=== PATIENT | female | born 1960 | race Caucasian/White ===

== ENCOUNTER → 2016-10-30 | Outpatient (CLI) | payer OTHER ==
[~2016-10-30] MED LIST: ABILIFY PO; ABILIFY15 MG PO; ABREVA2 GM TOP; ACETAMINOPHEN PO; ALBAFORT325 MG PO; APAP500; APAP500 PO; ASACOL HD800 MG PO; ASACOL400 MG PO; BACITRACIN 500U30 G1 TOP; BACITRACIN15 GM; BACITRACIN28.4 GM; BACTRIM DS TAB1 EACH PO; BISMATROL262 MG/15 PO; CAMPRAL 333 MG333 M1 PO; CAMPRAL PO; CARAFATE 11 GM/10 M1 PO; CARAFATE PO; CARAFATE1 GM/10 ML PO; CARBAMIDE15 ML OT; CARBIDOPA-LEVO1 EAC6 PO; CIPROFLOXACIN500 M1 PO; CLEOCIN HCL300 MG PO; CLOMIPRAMINE HC50 M1 PO; COMPAZINE PO; COMPAZINE10 M1; COMPAZINE10 M1 PO; COMPAZINE10 MG PO; CYCLOBENZAPRINE5 MG PO; DESYREL50 MG PO; DOXYCYCLINE 10100 M1 PO; DOXYCYCLINE 10100 MG PO; FAMOTIDINE20 MG PO; FERROUS SULFAT325 M1 PO; GENTAMICIN; HYDROCERIN CREA1 JAR; HYDROCODON-ACE1 EAC7 PO; IBUPROFEN 800800 MG PO; IRON325 PO; KEFLEX500 MG PO; LASIX 20 MG TAB20 MG PO; LORATIDINE 10 M10 M1 PO; MAALOX MAXIMUM355 ML PO; MINERIN CREME454 GM; MINERIN CREME454 GM TOP; MIRAPEX1 MG PO; MONISTAT 745 GM; MULTIPLE VITAM1 EAC3 PO; MYLANTA 12 OZ355 M1; MYLANTA 12 OZ355 M1 PO; MYLANTA125 MG PO; NORCO 5-325 TA1 EACH PO; NYAMYC TOP; NYSTATIN1 EA10; ORAZINC220 MG PO; PEPTO-BISM262 MG/15 PO; PEPTO-BISMOL262 M1; PRILOSEC40 MG PO; PROTONIX40 M2 PO; Q-TUSSIN100 MG/5 M PO; RANITIDINE HCL75 MG PO; SILVADENE20 GM TP; SINEMET CR 50/21 TAB PO; SSD CREAM 1% 5050 GM TOP; TRANSDERM-SCO1 PATC1 TD; TRANSDERM-SCOP1 EACH TD; UNICOMPLEX M TA1 TA1 PO; VITAMIN C100 M1 PO; VITAMIN D 5050000 I1 PO; VITAMINC500 PO; VITCB500GO PO; ZANTAC 150MG T150 MG PO; ZINC SULFATE 2220 M1 PO; ZOVIRAX 5% OINT15 G1 TOP; [UNRECOGNIZED DRUG - MIXTURE] TOP
== END ==
LOC: HYPER 06:53
DX: L97.122 Non-pressure chronic ulcer of left thigh with fat layer exposed (principal); L97.311 Non-pressure chronic ulcer of right ankle limited to breakdown of skin; E66.01 Morbid (severe) obesity due to excess calories; Z68.42 Body mass index [BMI] 45.0-49.9, adult; S21.102A Unspecified open wound of left front wall of thorax without penetration into thoracic cavity, initial encounter; Z86.19 Personal history of other infectious and parasitic diseases; Z90.710 Acquired absence of both cervix and uterus; X58.XXXA Exposure to other specified factors, initial encounter; Y93.89 Activity, other specified; Y92.89 Other specified places as the place of occurrence of the external cause; Y99.8 Other external cause status

== ENCOUNTER → 2016-11-20 | Outpatient (CLI) | payer OTHER | LOC: HYPER 07:17 | DX: L97.122 Non-pressure chronic ulcer of left thigh with fat layer exposed (principal); L97.311 Non-pressure chronic ulcer of right ankle limited to breakdown of skin; E66.01 Morbid (severe) obesity due to excess calories; Z68.42 Body mass index [BMI] 45.0-49.9, adult ==

== ENCOUNTER → 2016-12-13 | Outpatient (CLI) | payer OTHER | LOC: RAD 02:40 | DX: Z12.31 Encounter for screening mammogram for malignant neoplasm of breast (principal) ==

== ENCOUNTER → 2017-02-01 | Outpatient (CLI) | payer OTHER | LOC: ULTRA 13:20 | DX: N20.2 Calculus of kidney with calculus of ureter (principal) ==

== ENCOUNTER 2017-02-07 07:15 | Inpatient (IN) | payer OTHER ==
[~2017-02-07] VITALS: Ht 147.3 cm; Wt 95.3 kg
--- NOTE | ~2017-02-07 | HC ---
[facility] [place] [address] CONSULTATION Name: AUDRA HARRIS Room #: 424-P ADM IN M.R.#: [id number] Admission: 02/07/17 Attend Phys: Steven Rodriguez MD, FAAF Discharge: Date of : 64 Report #: [id number] THIS REPORT FOR: //name// CC: Steven Lopez MD DATE OF SERVICE: 02/08/2017 INFECTIOUS DISEASE CONSULTATION ATTENDING PHYSICIAN: Joe Faye M.D. REASON FOR CONSULTATION: Antibiotic management. HISTORY OF PRESENT ILLNESS: The patient is a 56-year-old white woman with multiple medical problems, [facility] and started on Zosyn. The patient is scheduled for debridement of the left thigh wound. The patient tells me she is here for a right leg lesion and obviously she is confused and unable to get much of any significant medical information. Consequently, all information is gathered from a review of old records. PAST MEDICAL HISTORY: Parkinson's disease. Seizure disorder. Status post ileal conduit, left nephrectomy and cystectomy. Diverting colostomy. History of colonic polyp. Hydrocephalus. Cognitive impairment. Spina bifida. Hepatitis C infection. Bronchial asthma. Hysterectomy. Gastroesophageal reflux disease. DRUG ALLERGIES: No drug allergies as mentioned apartment. MEDICATIONS: The patient is currently on aripiprazole, loratadine, famotidine, zinc sulfate, carbidopa/levodopa, Campral 2 tablets t.i.d., cyclobenzaprine 5 mg t.i.d., oxychlorosene topical, Carafate 1 gram b.i.d., Zosyn 3.37 grams IV every 8 hours, fentanyl 25-50 mcg IV q. 4 hours p.r.n., mesalamine 800 mg q.i.d., ondansetron p.r.n., bacitracin topical, scopolamine patch q. 72 hours, guaifenesin, ascorbic acid p.r.n., acetaminophen p.r.n., magnesium hydroxide p.r.n., oxycodone, vancomycin 1000 mg IV one time yesterday. REVIEW OF SYSTEMS: The patient unable to give any significant information. SOCIAL HISTORY: See H and P. FAMILY HISTORY: See H and P. PHYSICAL EXAMINATION: [address] [address] CONSULTATION Name: AUDRA HARRIS [facility] Room #: 424-P [facility] IN M.R.#: [id number] Admission: 02/07/17 Attend Phys: Steven Rodriguez MD, FAAF Discharge: Date of : 64 Report #: [id number] GENERAL: This is a chronically ill-appearing woman, mildly sedated in the preop area. VITAL SIGNS: Temperature 98.5, pulse 64, respirations 16, BP 100/39, height 4 feet 10 inches, weight 210 pounds. HEENT: Pupils are reactive. She has a strabismus, left eye. Mouth, missing teeth ____ teeth. NECK: Supple. LUNGS: Clear. HEART: S1, S2. BREASTS: Deferred. ABDOMEN: With multiple surgical scars, abdominal wall hernia and ileal conduit with turbid urine and left-sided colostomy. PELVIC: Deferred. RECTAL: Deferred. EXTREMITIES: There is a chronic ulceration of the left thigh ischial area, no active signs of infection. There is sign of stasis dermatitis on the right leg, NEUROLOGIC: Grossly within normal limits. LABORATORY DATA: Sodium 141, potassium 3.7, BUN 21, creatinine 1, alkaline phosphatase 123, albumin 2.9 g/dL, CRP 26.5 mg/L. WBC 7400, hemoglobin 12.5 g/dL, glucose 194, sedimentation rate 45 mm per hour. Prealbumin 15.5 mg/dL. Urinalysis with positive nitrite, pyuria, microscopic hematuria and bacteriuria as well as funguria. The urinalysis obviously abnormal since she has a chronic ileal conduit. Urine culture pending. Blood cultures were obtained and afebrile. The patient I suppose will remain negative. RADIOLOGY EVALUATION: A CT scan of the left thigh revealed soft tissue decubitus over the ischium, some cellulitic changes noted on CT scan. There is supple area of cortical erosion of the ischium, which may represent chronic or indwelling osteomyelitis, no abscess present. An ultrasound of the soft tissue is also obtained and this failed to reveal fluid collection. ASSESSMENT: 1. Chronic decubitus left ischial tuberosity area with possible underlying osteomyelitis. 2. Spina bifida. 3. Cognitive impairment. 4. Status post colostomy. 5. Status post left nephrectomy, cystectomy, and ileal conduit with abnormal urinalysis. 6. Malnutrition. SUGGESTIONS: While awaiting repeat culture results, we will continue with Zosyn. The patient is afebrile for the time being, so I doubt very much we are dealing with an abscess. If chronic osteomyelitis diagnosed, we will try to prescribe parenteral antibiotic for 4-6 weeks. [facility] [address] [place] [address] CONSULTATION Name: AUDRA HARRIS Room #: 424-P ADM IN M.R.#: [id number] Admission: 02/07/17 Attend Phys: Steven Rodriguez MD, FAAF Discharge: Date of : 64 Report #: [id number] Joe Faye and Dr. Ronak Lopez thank you for requesting my suggestions in the care of your patient. <ELECTRONICALLY SIGNED> By: Alexy Moreau MD 02/11/17 1354 1133 07 Alexy Moreau MD /nt
--- NOTE | ~2017-02-07 | HC ---
[facility] [place] [address] CONSULTATION Name: AUDRA HARRIS Room #: 424-P ADM IN M.R.#: [id number] Admission: 02/07/17 Attend Phys: [facility] Dis[facility]: Date of : 64 Report #: [id number] THIS REPORT FOR: //name// CC: Steven Caldwellhens DATE OF SERVICE: 02/08/2017 PERSONAL PHYSICIAN: Dr. Steven Rodriguez. CHIEF COMPLAINT: Left posterior thigh wound and right lateral ankle ulcer. HISTORY OF PRESENT ILLNESS: This is a pleasant white female who I have been following for several years for recurrent ulcerations in her left posterior thigh ischial region. The patient actually had several years ago, the ulceration got so bad that she required myocutaneous flap closure for stage IV decubitus ulcer. The patient has done fairly well since that time; however, in the past few months according to the caregiver the ulceration has gotten larger and in the past week exquisitely more painful with more foul-smelling drainage. This is what prompted her to make an appointment in the wound clinic. The patient herself denies fevers or chills. The patient, however, has very limited sensitivity in her lower extremities and it is unusual for her to feel pain. The patient herself actually is even a self-mutilator and will pick at her legs until they bleed, but states she has not been picking at this ulcer itself. The patient denies any other associated concerns or complaints at this time. The patient does have another ulceration on her right lateral lower extremity around the area of the ankle, which is chronic and currently being treated with Silvadene. We have been asked to assist in the care of the wound while she is hospitalized. PAST MEDICAL HISTORY: Significant for ileal conduit status post left nephrectomy and cystectomy, history of Parkinsonism, spina bifida, epilepsy, hydrocephalus, hepatitis C, status post ileal conduit, and recurrent ulcerations on her left posterior thigh. CURRENT MEDICATIONS: Multiple. I reviewed the patient's medication list. DRUG ALLERGIES: ADHESIVE TAPE. SOCIAL HISTORY: The patient lives in a care facility where she has been for several years. The patient does not smoke or drink alcohol. FAMILY HISTORY: Not pertinent to current medical condition. REVIEW OF SYSTEMS: CONSTITUTIONAL: The patient denies fevers or chills. [address] [address] CONSULTATION Name: AUDRA HARRIS [facility] Room #: 424-P [facility] IN M.R.#: [id number] Admission: 02/07/17 Attend Phys: Steven Rodriguez MD, FAAF Discharge: Date of : 64 Report #: [id number] NEUROLOGIC: The patient has overall generalized weakness, but no isolated weakness in arms or legs. EYES: No complaints. ENT: No complaints. CARDIAC: The patient denies chest pain, palpitations or peripheral edema. RESPIRATORY: The patient denies shortness breath, cough or wheezes. GASTROINTESTINAL: The patient complains of mild nausea, but no abdominal pain or diarrhea. The patient does have colostomy. GENITOURINARY: The patient denies urgency or frequency. The patient does have a catheter to her ileal conduit. MUSCULOSKELETAL: No complaints. SKIN: There is open ulcerations on her left ischial/posterior thigh region, which is infected as well as chronic ulceration on the right lateral ankle region. PHYSICAL EXAMINATION: VITAL SIGNS: Temperature 36.4, pulse 50, respirations 16, BP 93/43. GENERAL: This is alert and oriented times 3, pleasant white female who is in no acute distress. HEENT: Normocephalic, atraumatic. Mucous membranes are dry. Pupils are round. Sclerae white. NECK: Supple, nontender ____. BACK: Nontender. LUNGS: Clear. HEART: Regular, without murmur. ABDOMEN: Obese, soft, nontender. Ileal conduit and colostomy are in place. EXTREMITIES: The patient moves all extremities without difficulty. Evaluation of bilateral heels is intact. Evaluation of right lateral ankle reveals multiple superficial ulcerations, which seemed to be more consistent with self-inflicted scratching and not any sign of pressure. On the posterior left thigh, there is an ulceration with a mix of approximately 25% ____ 75% yellowish slough with greenish drainage with no significant odor. There is a depth of approximately 4 cm, question whether this goes down to the bone; however, I cannot truly appreciate penetration of the bone. Periulcer itself is moderately erythematous, tender to palpation. Rest of the posterior thigh is mildly erythematous as well, slightly warm to touch. Distal pulses otherwise intact. NEUROLOGIC: Cranial nerves 2-12 are grossly intact. Motor and sensory grossly intact. LABORATORY DATA: White count 7.4, hemoglobin 12.5, sed rate 45. BUN 21, creatinine 1.0. C-reactive protein is elevated at 26.5, albumin is low at 2.9, prealbumin is low at 15.5. IMAGING: CT scan of lower extremities showed chronic ulceration on the area of the left ischium. There ____ subtle area of clinical erosion over the ischium consistent with chronic or indolent osteomyelitis, but no sign of abscess. [address] [address] CONSULTATION Name: AUDRA HARRIS Room #: 424-P ADM IN M.R.#: [id number] Admission: 02/07/17 Attend Phys: Steven Rodriguez MD, FAAF Discharge: Date of : 64 Report #: [id number] IMPRESSION: 1. Chronic ulceration, left ischial tuberosity/posterior thigh -- infected with concern for underlying chronic osteomyelitis. 2. Chronic ulceration, right lateral ankle, most likely secondary to self-mutilation and scratching. 3. History of Parkinsonism. 4. History of cognitive disorder. 5. Status post colostomy. 6. Status post ileal conduit. 7. Protein-calorie malnutrition -- moderate with albumin of 2.9 and prealbumin of 15.5. PLAN: Surgery is being consulted and plan on possibly taking the patient to Surgery today for surgical debridement of left posterior thigh ischial ulceration. More likely, this will need to be left open and we can probably start negative pressure wound therapy to the site. If the bone does appear to be involved, hopefully I will be able to get some bony debridement and possibly culture of the bone itself. For the right lateral ankle ulceration, we will start the patient on Optifoam Ag, change this every [address] the patient on low air loss mattress and will be turned every 2 hours. We will make sure we maximize her oral supplementation of protein for healing. The patient understands the importance of this. I will also add provide supplementations for healing. Once the patient is able, we will attempt to give the patient maximize her physical and occupational therapy for continued strength. We will continue to follow the patient and continue all other current medications. By: 0825 1159 Ronak Lopez MD /nataliia
--- NOTE | ~2017-02-07 | HC ---
[facility] [address] [place] [address] CONSULTATION Name: AUDRA HARRIS Room #: 424-P ADM IN M.R.#: [id number] Admission: 02/07/17 Attend Phys: Steven Rodriguez [facility], [facility] Dis[facility]: Date of : 64 Report #: [id number] THIS REPORT FOR: //name// CC: Steven Lopez ADDENDUM INITIAL IMPRESSION: Decubitus ulcer, left ischial tuberosity stage IV. By: 0832 1227 Ronak Lopez MD /nt
--- NOTE | ~2017-02-07 | O ---
[facility] [place] [address] OPERATIVE REPORT Name: AUDRA HARRIS Room #: 424-P ADM IN M.R.#: [id number] Admission: 02/07/17 Attend Phys: Steven Rodriguez MD, [facility] Discharge: Date of : 64 Report #: [id number] THIS REPORT FOR: //name// CC: Steven Rodriguez [facility] DATE OF SERVICE: 02/08/2017 PREOPERATIVE DIAGNOSES: 1. Right leg cellulitis. 2. Left ischial decubitus ulcer, stage III, recurrent. POSTOPERATIVE DIAGNOSES: 1. Right leg cellulitis. 2. Left ischial decubitus ulcer, stage III, recurrent. PROCEDURE: 1. Debridement with Misonix of the right lower extremity cellulitis. 2. Debridement with Misonix of the left ischial wound, which is 8 cm in diameter. SURGEON: Nikunj Jerez MD [employer] SUPERVISOR: Shruthi Rose MS3. INDICATIONS: A 56-year-old lady who has had a previous skin muscle myocutaneous flap closure of her left ischial decubitus ulcer, now this has broken open and become an abscess cavity, which has spontaneously drained and requires debridement. The patient also has a right lower lateral extremity cellulitis with devoid of epithelium approximately 16 x 8 cm in greatest dimensions. OPERATIVE PROCEDURE: The patient had thorough discussion of procedure, benefits, and risks. She gave informed consent to proceed. She was brought to the operating room suite and had satisfactory induction of general endotracheal anesthesia. Sterile prep and draping of the lower extremity was completed with Betadine, the Misonix device was utilized over the entire surface of the lateral aspect of the wound. This was a 1-2 mm debridement of the superficial aspect of the film and exudate. This was debrided easily. Mepilex, Aquacel Ag was then placed over the wound and was wrapped with a Kerlix wrap. Attention was then turned, the patient was turned to a right lateral decubitus position. Copious irrigation of the previous myocutaneous flap, which had an open area of 6 cm in diameter. This was opened and we irrigated. The Misonix debridement device was also utilized on the superficial granulation tissue. No purulence was encountered. The wound was then packed with Dakin-soaked Kerlix. The patient [address] [address] OPERATIVE REPORT Name: AUDRA HARRIS [facility] Room #: 424-P [facility] IN M.R.#: [id number] Admission: 02/07/17 Attend Phys: Steven Rodriguez MD, FAAF Discharge: Date of : 64 Report #: [id number] tolerated the procedure well with estimated blood less than 5 mL. She returned to recovery room in stable and satisfactory condition. <ELECTRONICALLY SIGNED> By: Nikunj Jerez MD, FACS 02/12/17 1135 1029 1107 Nikunj Jerez MD, FACS /nt
--- NOTE | ~2017-02-07 | H ---
[facility] [place] [address] HISTORY AND PHYSICAL Name: AUDRA HARRIS Room #: 424-P ADM IN M.R.#: [id number] Admission: 02/07/17 Attend Phys: Joe Faye MD Discharge: Date of : 64 Report #: [id number] THIS REPORT FOR: //name// CC: Steven Lopez DATE OF SERVICE: 02/07/2017 CHIEF COMPLAINT: Left posterior thigh wound. HISTORY OF PRESENT ILLNESS: This patient reports having had a left posterior thigh wound for years. The patient has been seen, and apparently it has been getting worse and Dr. Lopez from wound care felt that this was getting worse and required inpatient hospitalization. She has had no fevers or chills, headache, visual changes, hearing changes, sore throat or epistaxis. No chest pain or chest pressure, cough, wheeze, shortness of breath, nausea, vomiting or diarrhea. She does have a colostomy. No dysuria, joint swelling, skin rash, focal weakness or numbness. PAST MEDICAL HISTORY: 1. Ileal conduit, status post left nephrectomy and cystectomy. 2. Parkinsonism. 3. History of gastrointestinal bleed. 4. History of colon polyps. 5. Epilepsy. 6. Spina bifida. 7. History of hydrocephalus. 8. Some cognitive disorder. 9. History of hepatitis C. 10. History of self-mutilation behavior. 11. Hyperlipidemia. 12. Rectal prolapse, status post surgery. 13. Eczema. 14. Asthma. 15. GERD. 16. Hysterectomy. 17. Hernia surgeries. MEDICATIONS: 1. Yellow Jacket 5 one p.o. q. 4 hours p.r.n. 2. Cyclobenzaprine 5 mg p.o. t.i.d. p.r.n. 3. Ibuprofen 800 mg p.o. t.i.d. p.r.n. 4. Sinemet 50/200 one p.o. t.i.d. 5. Pepcid or Zantac daily. 6. Campral 333 mg 2 p.o. t.i.d. [facility] [address] [place] [address] HISTORY AND PHYSICAL Name: AUDRA HARRIS ODILIA Room #: 424-P [facility] IN ..#: [id number] Admission: 02/07/17 Attend Phys: Joe Faye MD Discharge: Date of : 64 Report #: [id number] 7. Abilify 15 mg a day. 8. Clomipramine 50 mg tablets 3 p.o. at bedtime. 9. Iron sulfate 325 mg a day. 10. Vitamin C 500 mg p.o. b.i.d. 11. Asacol 800 mg p.o. 4 times a day. 12. Zinc sulfate 220 mg a day. 13. Scopolamine patch q. 72 hours. 14. Carafate 1 gram b.i.d. 15. Multivitamin 1 a day. ALLERGIES: TO TAPE. SOCIAL HISTORY: The patient lives at [facility]. Nonsmoker. No significant alcohol use. FAMILY HISTORY: No family history of hydrocephalus or epilepsy. REVIEW OF SYSTEMS: As above. PHYSICAL EXAMINATION: GENERAL: Pleasant woman in no immediate distress. HEENT: Conjunctivae pink. Nares clear. Pharynx clear. LUNGS: Clear. NECK: Supple, no lymphadenopathy. HEART: Regular rate and rhythm, S1 and S2. ABDOMEN: Soft, nontender. EXTREMITIES: 1-2+ edema. There is a deep ulcer to left posterior thigh with muscle tissue evident. IMPRESSION: 1. Deep ulcer, left posterior thigh. This is a pressure ulcer. She is basically chair bound. She has a history of spina bifida. 2. History of mood disorder. 3. History of parkinsonism, unclear if this is primary Parkinson's or Parkinson's secondary to medications. 4. History of seizures, asymptomatic. PLAN: Awaiting vital signs, labs and workup. Proceed with IV antibiotics. Consult surgery as recommended by Dr. Lopez. <ELECTRONICALLY SIGNED> By: Joe Faye MD 02/08/17 0656 1713 1744 Joe Faye MD /nt
[2017-02-07 19:28] LABS: HEMATOCRIT 37.9 % (37.0-47.0); HEMOGLOBIN 12.5 gm/dL (12.0-15.0); MCH 27.7 pg (26.0-34.0); MCV 83.8 fL (80.0-100.0); RBC 4.52 mil/uL (4.20-5.00); RDW 15.5 % (10.5-14.5); WBC 7.4 thou/uL (4.0-11.0)
[2017-02-07 19:46] LABS: ALBUMIN 2.9 g/dL (3.4-5.0); CALCIUM 8.8 mg/dL (8.5-10.1); POTASSIUM 3.7 mmol/L (3.5-5.1); TOTAL BILIRUBIN 0.2 mg/dL (<0.1-1.0); TOTAL PROTEIN 7.5 g/dL (6.4-8.2)
[2017-02-07 19:52] VITALS: BP 111/51
[2017-02-08] VITALS (7 sets, daily range): BP systolic 93–107; BP diastolic 39–60
[2017-02-08 08:15] LABS: URINE BILIRUBIN NEGATIVE (Negative); URINE BLOOD TRACE (Negative); URINE COLOR YELLOW; URINE GLUCOSE-RANDOM* NEGATIVE (Negative); URINE KETONES NEGATIVE (Negative); URINE LEUKOCYTES-REFLEX 2+ (Negative); URINE PROTEIN (DIPSTICK) 1+ (Negative); URINE SPECIFIC GRAVITY 1.015 (1.003-1.035); URINE UROBILINOGEN 0.2 E.U./dl (0.2-1.0)
[2017-02-08 08:22] LABS: CASTS None Seen /LPF (None Seen); SQUAMOUS 0-3 Few /LPF (0-3)
[2017-02-08 08:25] LABS: URINE WBC-REFLEX >25 Many /HPF (0-5)
[2017-02-08 08:26] LABS: CRYSTALS None Seen /LPF (None Seen); YEAST-REFLEX Present (None Seen)
[2017-02-09 03:22] LABS: HEMATOCRIT 35.2 % (37.0-47.0); HEMOGLOBIN 11.4 gm/dL (12.0-15.0); MCH 27.2 pg (26.0-34.0); MCHC 32.4 g/dL (28.0-37.0); MCV 83.9 fL (80.0-100.0); RBC 4.19 mil/uL (4.20-5.00); RDW 15.9 % (10.5-14.5); WBC 6.6 thou/uL (4.0-11.0)
[2017-02-09 03:38] LABS: CALCIUM 8.3 mg/dL (8.5-10.1); POTASSIUM 3.7 mmol/L (3.5-5.1)
[2017-02-09 04:00] VITALS: BP 112/60
[2017-02-09 08:00] VITALS: BP 107/44
[2017-02-09 17:57] VITALS: BP 133/62
[2017-02-09 20:00] VITALS: BP 111/54
[2017-02-10 04:25] VITALS: BP 121/63
[2017-02-10 08:59] VITALS: BP 117/50
[2017-02-10 16:50] VITALS: BP 116/50
[2017-02-10 20:00] VITALS: BP 133/57
[2017-02-11 05:30] VITALS: BP 132/70
[2017-02-11 09:39] VITALS: BP 132/65
[2017-02-11 17:05] VITALS: BP 154/81
[2017-02-11 20:10] VITALS: BP 152/78
[2017-02-12 03:17] VITALS: BP 137/81
[2017-02-12 08:00] VITALS: BP 129/80
[2017-02-12 16:00] VITALS: BP 145/89
[2017-02-12 21:30] VITALS: BP 139/87
[2017-02-13 08:08] VITALS: BP 153/90
[2017-02-13 16:18] VITALS: BP 145/92
[2017-02-13 21:19] VITALS: BP 134/72
[2017-02-14 04:01] VITALS: BP 127/73
[2017-02-14 07:41] VITALS: BP 126/81
[2017-02-14] MEDS ORDERED: ZOSYN 3.3753.375 GM IV (14:20)
[2017-02-14 16:01] VITALS: BP 135/80
[2017-02-14] MEDS ORDERED: ZOFRAN 4 MG ORAL4 MG DISSOLVE (16:39)
[2017-02-14 20:00] VITALS: BP 135/68
[2017-02-15 04:39] VITALS: BP 129/87
[2017-02-15 06:22] LABS: HEMATOCRIT 35.2 % (37.0-47.0); HEMOGLOBIN 11.8 gm/dL (12.0-15.0); MCH 27.9 pg (26.0-34.0); MCHC 33.5 g/dL (28.0-37.0); MCV 83.3 fL (80.0-100.0); RBC 4.23 mil/uL (4.20-5.00); RDW 15.2 % (10.5-14.5); WBC 4.5 thou/uL (4.0-11.0)
[2017-02-15 06:41] LABS: CALCIUM 8.3 mg/dL (8.5-10.1); CREATININE 1.1 mg/dL (0.6-1.0); POTASSIUM 3.6 mmol/L (3.5-5.1)
[2017-02-15 07:50] VITALS: BP 142/83
[2017-02-15 15:37] VITALS: BP 138/68
== END 2017-02-15 19:23 | DRG 463 ==
LOC: HYPER 07:15 → 4E 15:45 → HYPER 15:45 → 4E 16:53
PROVIDERS: Hospitalist
PROC: 0HBKXZZ Excision of Right Lower Leg Skin, External Approach (ICD-10-PCS; principal; 2017-02-08)
PROC: 0JBC0ZZ Excision of Pelvic Region Subcutaneous Tissue and Fascia, Open Approach (ICD-10-PCS; principal; 2017-02-08)
PROC: 05H933Z Insertion of Infusion Device into Right Brachial Vein, Percutaneous Approach (ICD-10-PCS; 2017-02-14)
DX: M86.9 Osteomyelitis, unspecified (principal); L89.224 Pressure ulcer of left hip, stage 4; L97.919 Non-pressure chronic ulcer of unspecified part of right lower leg with unspecified severity; L03.115 Cellulitis of right lower limb; N12 Tubulo-interstitial nephritis, not specified as acute or chronic; L03.116 Cellulitis of left lower limb; Z68.41 Body mass index [BMI] 40.0-44.9, adult; E44.0 Moderate protein-calorie malnutrition; L89.519 Pressure ulcer of right ankle, unspecified stage; G20 Parkinson's disease; E66.9 Obesity, unspecified; G40.909 Epilepsy, unspecified, not intractable, without status epilepticus; K21.9 Gastro-esophageal reflux disease without esophagitis; J45.909 Unspecified asthma, uncomplicated; G31.84 Mild cognitive impairment of uncertain or unknown etiology; E78.5 Hyperlipidemia, unspecified; Z91.048 Other nonmedicinal substance allergy status; Z93.3 Colostomy status; Q05.9 Spina bifida, unspecified; Z90.5 Acquired absence of kidney; Z86.010 Personal history of colon polyps; Z90.710 Acquired absence of both cervix and uterus
CPT/HCPCS: 10783; 27000; 50010; 50101; 50386; 50403; 53353; 53354; 62110; 62900; 70005

== ENCOUNTER → 2017-05-20 | Outpatient (CLI) | payer OTHER ==
[~2017-05-20] MED LIST changes: +ALL DAY ALLERGY10 M2 PO; +AMOXICILLIN 50500 MG PO; -APAP500 PO; +BENADRYL25 MG; +CARAFATE 1 GM TA1 G1 PO; +DAKIN'S473 M2 IRRIG; +DELZICOL400 M1 PO; +FERREX 150150 MG PO; +IMIPRAMINE HCL25 MG PO; -IRON325 PO; +LEVAQUIN 500 M500 M2 PO; +ROBITUSSIN100 MG/53 PO; +SILTUSSIN100 MG/5 M PO; +STALEVO 200 TA1 EACH PO; +THEREMS-M1 EACH PO; +TYLENOL EXTRA500 MG PO; -UNICOMPLEX M TA1 TA1 PO; -VITAMIN D 5050000 I1 PO; +VITAMIN D250000 UNIT PO; +ZOFRAN 4 MG ORAL4 MG DISSOLVE; +ZOSYN 3.3753.375 GM IV; +[UNRECOGNIZED DRUG - OTHER] TOP
--- NOTE | ~2017-05-20 | HC ---
[facility] [place] [address] CONSULTATION Name: AUDRA HARRIS Room #: PRE [facility] Paula.#: [id number] Admission: Attend Phys: Maurice Burnette MD Discharge: Date of : 64 Report #: [id number] THIS REPORT FOR: //name// CC: Steven Burnette DATE OF SERVICE: 04/16/2017 TYPE OF REPORT: Wound care consultation. PERSONAL PHYSICIAN: Steven Rodriguez M.D. CHIEF COMPLAINT: Left ischial ulcer. HISTORY OF PRESENT ILLNESS: This is a 56-year-old white female who I have followed for the past several months for a nonhealing ulcer in the left ischial region. The patient had this debrided several months ago and was treated with a course of 6 weeks of IV antibiotics. The patient did not have flap closure at that time. The patient recently went back at her care facility and they noted a foul odor, which has gotten progressively worse, which prompted her to be admitted to the hospital. We have been asked to follow her for the ulceration itself. The patient denies fevers or chills. PAST MEDICAL HISTORY: Significant for epilepsy, mild mental retardation, spina bifida, hydrocephalus, hepatitis C, self mutilation, previous colostomy with ileal conduit, left nephrectomy and cystectomy. CURRENT MEDICATIONS: Multiple, I reviewed the patient's medication list. DRUG ALLERGIES: ADHESIVE TAPE. SOCIAL HISTORY: The patient lives in a care facility. Does not smoke or drink alcohol. REVIEW OF SYSTEMS: CONSTITUTIONAL: The patient denies fevers or chills. NEUROLOGICAL: The patient denies numbness, tingling, weakness in arms or legs. EYES: No complaints. ENT: No complaints. CARDIAC: The patient denies chest pain, palpitations or peripheral edema. RESPIRATORY: The patient denies shortness of breath, cough or wheezes. GASTROINTESTINAL: The patient denies nausea, vomiting or abdominal pain. GENITOURINARY: The patient denies urgency or frequency. MUSCULOSKELETAL: No complaints. SKIN: Has open wound on her left ischial region. [facility] [address] [place] [address] CONSULTATION Name: STEVENAUDRA ODILIA Room #: PRE [facility] M.R.#: [id number] Admission: Attend Phys: Maurice Burnette MD Discharge: Date of : 64 Report #: [id number] LABORATORY DATA: White count 6.4 and hemoglobin 11.4. BUN 13 and creatinine 0.9. Albumin low at 2.5 and prealbumin was 15.5. RADIOLOGICAL DATA: MRI was performed, which showed the large decubitus ulcer, but no periosteum reaction, bone destruction or marrow edema to suggest acute osteomyelitis. PHYSICAL EXAMINATION: VITAL SIGNS: Temperature 36.8, pulse 56, respirations 18 and BP 138/67. GENERAL: This is an alert and oriented x 2, person and place but not time, pleasant white female who is in no acute distress. HEENT: Normocephalic and atraumatic. Mucous membranes are somewhat dry. Pupils are round. Sclerae white. NECK: Shows no JVD or masses. BACK: Nontender. LUNGS: Clear. HEART: Regular, without murmur. ABDOMEN: Soft. Colostomy bag is in place and full ileal conduit is in place and attached to a dependent drainage. Rest of the abdomen is nontender. EXTREMITIES: The patient moves all extremities without difficulty. Bilateral lower extremities have mild stasis dermatitis with distal pulses intact. Evaluation of the left ischial region reveals early stage 4 decubitus ulcer with palpable bone. The wound itself is foul-smelling with a mix of approximately 80% slough and 20% dark granulation tissue. Periwound itself is somewhat . Bilateral heels are intact. NEUROLOGICAL: Cranial nerves 2 through 12 are grossly intact. Motor and sensory grossly intact. IMPRESSION: 1. Stage 4 left ischial tuberosity ulceration with no MRI evidence for osteomyelitis. 2. Protein-calorie malnutrition - severe with albumin 2.5 and prealbumin of 15.5. 3. Stasis dermatitis - chronic. 4. History of cerebral palsy. 5. Generalized debility. PLAN: At this time, we will request surgical evaluation for further debridement of this ulceration and possible wound VAC placement at that time. In the past, we have tried wound VACs before and it has been very difficult to see on this patient due to the location. I feel patient most likely is a candidate for long-term acute care. At the time of discharge, IV antibiotics has already been started. We will make sure we maximize the patient to oral supplementation for protein for healing as well as utilize physical and occupational therapy for [address] [address] CONSULTATION Name: AUDRA HARRIS ODILIA Room #: PRE [facility] Masters#: [id number] Admission: Attend Phys: Maurice Burnette MD Discharge: Date of : 64 Report #: [id number] strengthening. We will continue to follow the patient. I appreciate the ability to consult. <ELECTRONICALLY SIGNED> By: Ronak Lopez MD 05/14/17 1123 1736 0239 Ronak Lopez MD /nt
== END ==
LOC: HYPER 04-15 09:23
DX: T81.31XA Disruption of external operation (surgical) wound, not elsewhere classified, initial encounter (principal); Z90.710 Acquired absence of both cervix and uterus; Z90.5 Acquired absence of kidney; Y92.89 Other specified places as the place of occurrence of the external cause; Y83.8 Other surgical procedures as the cause of abnormal reaction of the patient, or of later complication, without mention of misadventure at the time of the procedure

== ENCOUNTER 2017-05-26 20:24 | Inpatient (IN) | payer OTHER ==
[~2017-05-26] VITALS: Ht 142.2 cm; Wt 100.7 kg
--- NOTE | ~2017-05-26 | O ---
[facility] [place] [address] OPERATIVE REPORT Name: AUDRA HARRIS ODILIA Room #: 421-P [facility] IN M.R.#: [id number] Admission: 05/27/17 Attend Phys: Steven Rodriguez MD, FAAF Discharge: 06/05/17 Date of : 64 Report #: [id number] THIS REPORT FOR: //name// CC: Steven Rodriguez DATE OF SERVICE: 06/04/2017 PREOPERATIVE DIAGNOSES: 1. Chronic recurrent left ischial decubitus wound. 2. Severe protein calorie malnutrition. 3. Spina bifida with chronic debility. 4. Diabetes mellitus. 5. Prior diverting colostomy. 6. Seizure disorder with hydrocephalus. 7. Hepatitis C. POSTOPERATIVE DIAGNOSES: 1. Chronic recurrent left ischial decubitus wound. 2. Severe protein calorie malnutrition. 3. Spina bifida with chronic debility. 4. Diabetes mellitus. 5. Prior diverting colostomy. 6. Seizure disorder with hydrocephalus. 7. Hepatitis C. PROCEDURE: Excisional debridement of skin, subcutaneous tissue, muscle and bone of a chronic recurrent stage 4 left ischial decubitus wound, ultimately measuring 8 x 8 cm in dimension (64 square cm). Preoperative wound measurements were 7.5 x 7.5 cm in dimension with slight periwound necrosis and osteomyelitis. SURGEON: Oxana Trevino M.D. GRADING MACHINE OPERATOR: Ai Do MS3. ANESTHESIA: General endotracheal anesthesia. ESTIMATED BLOOD LOSS: Minimal (less than 5 mL). COMPLICATIONS: None appreciated. SPECIMENS: All excised tissue to pathology and excised bone to microbiology for aerobic and anaerobic culture and sensitivity. INDICATIONS: The patient is a 57-year-old chronically debilitated and bedbound female with severe protein-calorie malnutrition, diabetes mellitus, who has had a longstanding history of left ischial decubitus wound that has undergone [facility] [address] [place] [address] OPERATIVE REPORT Name: AUDRA HARRIS ODILIA Room #: 421-P [facility] IN ..#: [id number] Admission: 05/27/17 Attend Phys: Steven Rodriguez MD, FAAF Discharge: 06/05/17 Date of : 64 Report #: [id number] numerous debridements. The patient was recently found to have osteomyelitis on MRI, and as she has a recurrent necrosis to her wound, indication was for debridement today. DESCRIPTION OF PROCEDURE: After explaining the risks, benefits and alternatives of the procedure with the patient and her family and obtaining consent, the patient was brought to the operating room supine on her hospital bed. After conducting a thorough timeout procedure verifying correct patient and procedure, the patient was given general endotracheal anesthesia. Once adequate anesthesia was obtained, she was positioned on the operating room table in the prone position with all pressure points appropriately padded. The patient's wound was then prepped and draped in standard surgical sterile fashion. Electrocautery was now used to circumferentially debride all skin, subcutaneous tissue and muscle that was necrotic from the periphery of the wound. This was carried down to the depths of the wound where soft spongy bone was identified, and this was debrided back with rongeurs. The bone was sent to microbiology for culture and sensitivity. I then used the Misonix ultrasonic debridement tool to remove all remaining necrotic tissue as well as the biofilm overlying the wound in question. Hemostasis was assured with electrocautery. I then sprayed thrombin on the wound and packed it tightly with sterile saline soaked Kerlix gauze, dressed it with 4 x 4s and ABD pads and Medipore tape. At the end of the procedure, all instrument, needle and sponge counts were correct. The patient tolerated the procedure without incident, was awakened in the operating room and transitioned to the recovery room in stable condition with no apparent complications. <ELECTRONICALLY SIGNED> By: Oxana Trevino MD, FACS 06/06/17 [phone] [id number] Oxana Trevino MD, FACS /nt
--- NOTE | ~2017-05-26 | HC ---
[facility] [place] [address] CONSULTATION Name: AUDRA HARRIS ODILIA Room #: 421-P ADM IN M.R.#: [id number] Admission: 05/27/17 Attend Phys: [facility], [facility] Dis[facility]: Date of : 64 Report #: [id number] THIS REPORT FOR: //name// CC: Steven Rodriguez DATE OF SERVICE: 05/27/2017 REFERRING PROVIDER: Maurice Burnette M.D. REASON FOR CONSULTATION: Left ischial decubitus wound. HISTORY OF PRESENT ILLNESS: The patient is a 57-year-old female who has undergone a prior myocutaneous flap closure of a chronic recurrent left ischial decubitus wound. The patient has now undergone multiple bouts of repeat debridement the most recent of which I performed on 04/18/2017. At the time of her prior debridement, she also had right leg cellulitis that underwent debridement and she had been undergoing aggressive local wound care. The patient's wound had started to heal up. However, she continues with a persistent area of drainage and periwound necrosis overlying her left ischium with concern for osteomyelitis. As this has continued to fester, she either needs repeat debridement or possible flap closure of her wound and for that reason, I have been asked to reevaluate once again. PAST MEDICAL HISTORY: Seizure disorder, spina bifida, hydrocephalus, hepatitis C, hyperlipidemia, GERD, chronic anemia, prior nephrectomy and cystectomy with urostomy placement, prior hysterectomy, multiple incisional ventral hernia surgeries, diabetes mellitus and indwelling colostomy. CURRENT MEDICATIONS: Carbidopa/levodopa, bacitracin ointment, Maalox, famotidine, miconazole, vitamin C, Asacol, Lasix, Abreva, Silvadene, mineral oil, vitamin D, iron, Zyrtec, imipramine, Carafate, Tylenol, Abilify, clomipramine, Claritin, nystatin, scopolamine patch, zinc, multivitamin, Zosyn and vancomycin. ALLERGIES: TO ADHESIVE TAPE. SOCIAL HISTORY: Does not utilize tobacco, alcohol or illicit drugs. FAMILY HISTORY: Reviewed and noncontributory. REVIEW OF SYSTEMS: GENERAL: The patient denies nocturnal fevers or chills. HEENT: No change in vision, change in hearing. NECK: No swelling or difficulty swallowing. HEART: No chest pain, palpitations. LUNGS: No cough or shortness of breath. [address] [address] CONSULTATION Name: AUDRA HARRIS ODILIA Room #: 421-P [facility] IN M.R.#: [id number] Admission: 05/27/17 Attend Phys: Steven Rodriguez MD, FAAF Discharge: Date of : 64 Report #: [id number] ABDOMEN: No vomiting and no nausea. GENITOURINARY: No dysuria or hematuria. ENDOCRINE: No polyuria, polydipsia. HEMATOLOGIC: No history of bleeding or easy bruising. EXTREMITIES: No history of new weakness or limited range of motion. NEUROLOGIC: No history of syncope or near syncopal episodes. SKIN AND INTEGUMENT: History of a longstanding left ischial decubitus wound. PSYCHIATRIC: No history of anxiety or depression. PHYSICAL EXAMINATION: VITAL SIGNS: Temperature 98.2, pulse 98, respirations 20, blood pressure 134/72, stands 4 feet 8 inches tall and weighs 222 pounds. GENERAL: She is awake, in no acute distress. HEENT: Normocephalic, atraumatic. Pupils equal, round, reactive to light. NECK: Supple, without lymphadenopathy. Trachea midline. HEART: Regular rate and rhythm. LUNGS: Clear to auscultation bilaterally. ABDOMEN: Soft, nontender, nondistended. GENITOURINARY: Normal external female genitalia. EXTREMITIES: 2+ pitting edema bilateral lower extremities. NEUROLOGIC: Cranial nerves 2-12 are grossly intact. PSYCHIATRIC: Normal mood and affect. SKIN AND INTEGUMENT: Left ischial decubitus wound shows ongoing nonhealing wounds with fibrinopurulent drainage. LABORATORY AND X-RAY DATA: CBC shows white blood cell count of 9700, hemoglobin 11.1, platelets 275,000. She does have a left shift with 75% neutrophils. Creatinine is 0.8. Liver function enzymes are normal. Lactic acid normal at 0.8. C-reactive protein is elevated at 111. Sed rate is elevated at 88. ASSESSMENT AND PLAN: A 57-year-old obese female with multiple comorbid medical conditions with general debilitation and immobility who has had chronic indolent left ischial decubitus wound for which she has failed the prior flap closure. The patient has undergone repeat debridement approximately 5 weeks ago and has ongoing issues with her wound. Dr. Burnette with the wound care service has also been asked to evaluate the wound and at this juncture, she may be a candidate for flap closure even in light of her severe protein-calorie malnutrition with a prealbumin of 11. If Dr. Burnette and I discuss and she needs repeat debridement, we will proceed to the operating room at the first available opportunity. If, however, she appears to be a candidate for flap closure per the direction of Plastic Surgery, I would likely allow them to debride and flap in the same setting, provided they are amenable to that. Nonetheless, I will follow closely and leave any further recommendations in the patient's chart as appropriate. [facility] [address] [place] [address] CONSULTATION Name: AUDRA HARRIS Room #: 421-P ADM IN M.R.#: [id number] Admission: 05/27/17 Attend Phys: Steven Rodriguez MD, FAAF Discharge: Date of : 64 Report #: [id number] I sincerely appreciate this consult. <ELECTRONICALLY SIGNED> By: Oxana Trevino MD, FACS 05/28/17 1512 [id number] Oxana Trevino MD, FACS /nt
--- NOTE | ~2017-05-26 | HC ---
[facility] [place] [address] CONSULTATION Name: AUDRA HARRIS Room #: 421-P ADM IN M.R.#: [id number] Admission: 05/27/17 Attend Phys: Steven [facility], [facility] Discharge: Date of : 64 Report #: [id number] THIS REPORT FOR: //name// CC: Steven Rodriguez DATE OF SERVICE: 05/27/2017 INFECTIOUS DISEASE CONSULTATION ATTENDING PHYSICIAN: Steven Rodriguez M.D. REASON FOR CONSULTATION: Left ischial decubitus stage 4 and cellulitis, right leg. HISTORY OF PRESENT ILLNESS: The patient is a 57-year-old white woman, resident of a [facility], where she had been living for a number of years. The patient previously hospitalized at [facility] with stage 4 left ischial decubitus. She was discharged on oral antibiotics. The patient has some mental disabilities and unable to give any coherent medical history and most of the information is gathered from the review of records. Apparently, the patient reporting increasing pain in the ischial decubitus and some right leg pain as well as some chilling sensation. Other than that, she voices no major complaints. PAST MEDICAL HISTORY: Status post colostomy, left-sided and ileal conduit, right side. Seizure disorder. Spina bifida and hydrocephalus. Previous hepatitis C infection. Bronchial asthma. Status post hysterectomy due to uterine tumor. Surgical correction of abdominal wall hernia. Diabetes mellitus and malnutrition. DRUG ALLERGIES: ADHESIVE TAPE. MEDICATIONS: She is currently on treatment with Zosyn and vancomycin. Usually, she is on treatment at the long-term facility on carbidopa, famotidine, Levaquin 500 mg daily and amoxicillin 500 mg p.o. t.i.d. per my indication on previous discharge; I am uncertain as to whether she remains on this or not. She is also on Lasix, Carafate, ascorbic acid, nystatin, cetirizine and vitamins. She did receive tedizolid 200 mg p.o. daily. FAMILY HISTORY: See old records. SOCIAL HISTORY: See old records. REVIEW OF SYSTEMS: Noncontributory. PHYSICAL EXAMINATION: [facility] [address] [place] [address] CONSULTATION Name: AUDRA HARRIS ODILIA Room #: 421-P [facility] IN .R.#: [id number] Admission: 05/27/17 Attend Phys: Steven Rodriguez MD, FAAF Discharge: Date of : 64 Report #: [id number] GENERAL: Chronically ill-appearing woman. VITAL SIGNS: Temperature 98.4, pulse 113, respirations 22 and BP 181/86. Height 5 feet 5 inches, weight 200 pounds. There is another entry few hours later that showed some discrepancy with these numbers. HEENT: Within range. NECK: Supple. No thyromegaly. LUNGS: Clear. HEART: S1, S2. No gallops. ABDOMEN: Soft with left-sided colostomy and right-sided ileal conduit and collecting devices. No masses or megaly. BACK EXAMINATION: Reveals a stage 4 left ischial decubitus that trails all the way down to the ischium, obviously exposed with rough edges. EXTREMITIES: There is some redness and superficial skin abrasions, right leg, compatible with mild cellulitis. NEUROLOGIC: Grossly within normal limits. LABORATORY DATA: Sodium 141, potassium 3.2, BUN 28, creatinine 0.8 and glucose 110. Albumin 2.3 g/dL. WBC 9700, hemoglobin 11.1 g/dL and platelets 275,000. Urinalysis pending. Blood and wound cultures were obtained and those are pending at the time of this dictation. ASSESSMENT: 1. Stage 4 left ischial decubitus with exposed bone - osteomyelitis. 2. Mild cellulitis, right leg. 3. Spina bifida. 4. Status post colostomy and ileal conduit. 5. Malnutrition. 6. Diabetes. SUGGESTIONS: Recommend continue local wound care. Continue Zosyn and vancomycin. Await culture results. Monitor ESR, CRP. The patient will require flap closure of ischial decubitus since this had failed to improve for many months now. Dr. Steven Rodriguez, thank you for requesting my suggestions in the care of your patient. <ELECTRONICALLY SIGNED> By: Alexy Moreau MD 05/28/17 1032 [id number] [id number] Alexy Moreau MD /nt
--- NOTE | ~2017-05-26 | HC ---
[facility] [address] CONSULTATION Name: AUDRA HARRIS ODILIA Room #: 421-P ADM IN M.R.#: [id number] Admission: 05/27/17 Attend Phys: Steven Rodriguez MD, FAAF Discharge: Date of : 64 Report #: [id number] THIS REPORT FOR: //name// CC: Steven Rodriguez DATE OF SERVICE: 05/27/2017 CHIEF COMPLAINT: Stage 4 left ischial pressure ulcer. HISTORY OF PRESENT ILLNESS: This is a 57-year-old female patient with whom I am familiar from both previous inpatient as well as outpatient evaluations. She had a chronic ulceration of the left ischial region. It has recently increased in drainage, and although has had a wound VAC in place, the deep tunnel has not improved, although the diameter has slightly improved. The area has appeared to be infected and she has been admitted to the hospital for further evaluation and treatment. She is being followed by Dr. Rodriguez as well as by Dr. Moreau from Infectious Disease. She has been seen by surgery and has undergone surgical debridement in the past. PAST MEDICAL HISTORY: Positive for history of spina bifida, recurring cellulitis of the right leg. She has colostomy and urostomy as well as left ischial pressure ulceration. The patient complains of pain and drainage as well as some nausea. CURRENT MEDICATIONS: The patient's current medications include Zosyn, Dakin, vancomycin, Tylenol, Maalox, amoxicillin, aripiprazole, vitamin C, Stalevo, cetirizine, cyclobenzaprine, dextromethorphan, diphenhydramine, Abreva, famotidine, Lasix, guaifenesin, ibuprofen, imipramine, levofloxacin, mesalamine, nystatin, ondansetron, scopolamine and tedizolid. ALLERGIES: ADHESIVE TAPES. SOCIAL HISTORY: The patient lives at [facility], which is a senior care. No history of alcohol or tobacco use. FAMILY HISTORY: Unknown. REVIEW OF SYSTEMS: CONSTITUTIONAL: The patient does complain of fever and chills. ENT: The patient denies earache, nasal drainage or sore throat. CARDIOVASCULAR: The patient denies chest pain, palpitations or diaphoresis. PULMONARY: The patient denies cough or shortness of breath. GASTROINTESTINAL: The patient does complain of mild nausea. Denies vomiting, diarrhea or abdominal pain. ORTHOPEDIC: The patient does complain of the pain in her leg as well as her left ischial region. [facility] [address] [place] [address] CONSULTATION Name: AUDRA HARRIS Room #: 421-P [facility] IN [facility]#: [id number] Admission: 05/27/17 Attend Phys: Steven Rodriguez MD, FAAF Discharge: Date of : 64 Report #: [id number] Other systems in a 12-point review of systems are negative. PHYSICAL EXAMINATION: VITAL SIGNS: The patient's vital signs at this time include pulse 98, respiratory rate of 20, blood pressure 134/72 and temperature 98.2. GENERAL: This is a chronically ill-appearing female patient who appears in minimal distress. HEENT: Head normocephalic. Nose and throat clear. NECK: Supple. LUNGS: Clear. HEART: Regular. ABDOMEN: Soft. Bowel sounds present. EXTREMITIES: Demonstrate an abrasion on the left forearm. It is relatively superficial. She has also a small ulceration on her right knee, her right pretibial region and top of the fourth toe. She has a boggy area on her right heel, but there is nothing open at this time. She has a stage 4 pressure ulcer to the left ischial region. Bone is palpable in the deep base. There is a moderate tunnel, although the wound base is fairly clean. There is moderate serous drainage, a slight amount of odor at this time. LABORATORY DATA: Includes white blood cell count 9.7; hemoglobin 11.1; hematocrit of 33.9 and platelet count is 275,000. Sed rate is elevated at 88. Sodium 141, potassium 3.2, chloride 107 and CO2 23. BUN 28 and creatinine 0.8. Glucose 110. Calcium is 9.1. AST is 38 and ALT is 7. C-reactive protein is markedly elevated at 111.7. Albumin is low at 2.3. On the outpatient side, the patient's prealbumin was markedly low at 11. Outpatient cultures have demonstrated Proteus mirabilis, Acinetobacter and MRSA. CLINICAL IMPRESSION: 1. Stage 4 pressure ulcers of the left ischium with clinical evidence of osteomyelitis. MRI in March did not show radiographic signs, although with the patient's continued elevation in her sedimentation rate, CRP and persistent drainage and palpable bone in the base, I think that clinically the diagnosis is present. 2. Severe protein calorie malnutrition with prealbumin of 11. 3. Polymicrobial wound infection. 4. Multiple abrasions to the extremities including the left forearm, right knee, right pretibial region and right fourth toe. RECOMMENDATIONS: We recommend topical Betadine to the abrasions on the knee, pretibial region, toe and forearm. These otherwise can be left open to air. Recommend packing the ischial ulcer with half strength Dakin's moist gauze. Discussion of possible flap closure has been undertaken. It may be a worthwhile endeavor with some bony debridement and myocutaneous flap closure. We would certainly need to coordinate with a plastic surgeon who would be available and willing to perform the procedure and then coordinate a 3-week postoperative stay [facility] [address] [place] [address] CONSULTATION Name: AUDRA HARRIS ODILIA Room #: 421-P ADM IN M.R.#: [id number] Admission: 05/27/17 Attend Phys: Steven Rodriguez MD, FAAF Discharge: Date of : 64 Report #: [id number] in a [place] bed in order to expect a successful outcome. She has had a previous myocutaneous flap that did well in the past. At this point in time, she will need to be turned and repositioned every 2 hours. Aggressive nutritional support to maximize wound healing. Antibiotic therapy. Continue all medications. <ELECTRONICALLY SIGNED> By: Maurice Burnette MD 05/28/17 [phone] Maurice Burnette MD /nt
--- NOTE | ~2017-05-26 | H ---
[facility] [place] [address] HISTORY AND PHYSICAL Name: AUDRA HARRIS Room #: 421-P ADM IN M.R.#: [id number] Admission: 05/27/17 Attend Phys: Steven Rodriguez MD, FAAF Discharge: Date of : 64 Report #: [id number] THIS REPORT FOR: //name// CC: Steven Moreau MD DATE OF SERVICE: 05/27/2017 CHIEF COMPLAINT: Left hip ulcer. HISTORY OF PRESENT ILLNESS: The patient is a 57-year-old white female with multiple medical problems, retirement resident at [facility] with chronic left hip ischial ulcer. This has been reinfected with high microbial organisms. She was developing worse pain over the past days and at the time of admission to the Emergency Department, was feeling chills and some malaise as well as increased discomfort. She was evaluated in the Emergency Department and admitted for IV antibiotic therapy and further surgical opinion and Infectious Diseases opinion regarding her ulcer. She had recently completed the course of Sivextro orally as an outpatient and reports that this did help her wound and make it appear more clean. PAST MEDICAL HISTORY: GI bleed, epilepsy, seizures, spina bifida, hydrocephalus, mild mental retardation, hepatitis C, self-mutilation, urostomy, mood disorder, hyperlipidemia, Parkinson disease, rectal prolapse surgery, eczema, GERD, MRSA in 2004 in sputum, 2006 left chest wound, anemia, asthma, colostomy, hysterectomy due to a tumor in uterus, hernia surgeries, polyps removed from colostomy stoma. MEDICATIONS: Ibuprofen, cyclobenzaprine, ondansetron, Dakin's solution, Stalevo 200 mg t.i.d., magnesium hydroxide p.r.n., famotidine, Levaquin, amoxicillin, docosanol, furosemide 20 mg q.a.m. p.r.n., iron polysaccharides, sucralfate, ascorbic acid, prochlorperazine, nystatin, guaifenesin, pseudoephedrine, dextromethorphan, cetirizine, imipramine, vitamin D2, mesalamine, diphenhydramine, acetaminophen, mineral oil, petroleum white, zinc sulfate, multivitamins, aripiprazole, scopolamine patches. ALLERGIES: ADHESIVE TAPE. SOCIAL HISTORY: Nondrinker, nonsmoker, retirement resident. FAMILY HISTORY: Noncontributory. REVIEW OF SYSTEMS: CONSTITUTIONAL: No fever, chills, some malaise. No vomiting or diarrhea. EYES: No visual changes. [address] [address] HISTORY AND PHYSICAL Name: AUDRA HARRIS [facility] Room #: 421-P [facility] IN M.R.#: [id number] Admission: 05/27/17 Attend Phys: Steven Rodriguez MD, FAAF Discharge: Date of : 64 Report #: [id number] ENT: No problems with hearing, swallow, taste or smell. CARDIOVASCULAR: No chest pain or palpitations. RESPIRATORY: No difficulty breathing. GASTROINTESTINAL: No abdominal pain. Functioning colostomy. GENITOURINARY: Has urostomy, also functioning. MUSCULOSKELETAL: Painful left ischial ulcer. ENDOCRINE: No associated symptoms. NEUROLOGIC: History of epilepsy. No recent seizures. DERMATOLOGIC: Decubitus ulcer as mentioned above. She has had some redness in the right lower extremity as well. Remainder of system review is negative. OBJECTIVE: VITAL SIGNS: Temperature is 36.9, pulse 113, respirations 22, blood pressure 181/86, no acute distress. GENERAL: Pleasant in conversation. HEENT: Pupils equal, reactive. Oropharynx is clear. NECK: Supple. COR: S1, S2. CHEST: Clear. ABDOMEN: Soft, nontender. Functioning stomas. SKIN: She has a large chronic ischial wound on the left hip with some surrounding erythema. Wound bed itself appears fairly clean, however. She has had some redness in the right lower extremity as well. NEUROLOGIC: No focal deficit. LABORATORY EVALUATION: CBC: White count is 9.7, hemoglobin 11.1, hematocrit 33.9, platelets 275,000. Serum chemistry: Sodium 141, potassium is 3.2, chloride 107, CO2 of 23, BUN 28, creatinine 0.8, estimated GFR 74, glucose 110. Lactate 0.8. Calcium is 9.1. Total bilirubin 0.3, AST 38, ALT 7, alkaline phosphatase 99, total protein 7.3, albumin 2.3. ASSESSMENT: 1. Stage 4 decubitus ulcer, left ischium. 2. Cellulitis, right leg. 3. Spina bifida. 4. Colostomy and urostomy. PLAN: Admit to the hospital, IV antibiotics with vancomycin and Zosyn. Follow labs and cultures serially. ID consult and General Surgery consult. <ELECTRONICALLY SIGNED> By: Steven Rodriguez MD, FAAFP, FACEP 05/30/17 1831 [id number] Steven Rodriguez MD, FAAFP, FACEP /nt
[2017-05-26 20:27] VITALS: BP 181/86
[2017-05-26] MEDS ORDERED: FERREX 150150 MG PO (20:37)
[2017-05-26] MEDS ORDERED: SIVEXTRO200 M1 PO (20:39)
[2017-05-26] MEDS ORDERED: VITAMIN D250000 UNIT PO (20:40)
[2017-05-26] MEDS ORDERED: CARAFATE 1 GM TA1 G1 PO (20:42)
[2017-05-26] MEDS ORDERED: DAKIN'S473 M1 (20:43)
[2017-05-26] MEDS ORDERED: VITAMINC500 PO (20:43)
[2017-05-26] MEDS ORDERED: SINEMET 25-2501 EAC1 PO (20:45)
[2017-05-26] MEDS ORDERED: DELZICOL400 M1 PO (20:48)
[2017-05-26] MEDS ORDERED: COMPAZINE10 MG PO (21:04)
[2017-05-26] MEDS ORDERED: ABREVA2 GM TOP (21:06)
[2017-05-26] MEDS ORDERED: NYAMYC15 GM TOP (21:07)
[2017-05-26] MEDS ORDERED: MUCINEX600 MG PO (21:09)
[2017-05-26] MEDS ORDERED: SUDOGEST30 MG PO (21:09)
[2017-05-26] MEDS ORDERED: DELSYM30 MG/5 M1 PO (21:10)
[2017-05-26 21:45] LABS: ABSOLUTE NEUTROPHILS 7.3 thou/uL (1.4-8.2); BASOPHILS 0.5 % (0.0-2.0); EOSINOPHILS 0.6 % (0.0-3.0); HEMATOCRIT 33.9 % (37.0-47.0); HEMOGLOBIN 11.1 gm/dL (12.0-15.0); LYMPHOCYTES 12.9 % (24.0-44.0); MCH 26.5 pg (26.0-34.0); MCHC 32.7 g/dL (28.0-37.0); MONOCYTES 10.6 % (1.0-8.0); PLATELET COUNT 275 thou/uL (150-400); POLYS 75.4 % (36.0-66.0); RBC 4.19 mil/uL (4.20-5.00); RDW 15.8 % (10.5-14.5); WBC 9.7 thou/uL (4.0-11.0)
[2017-05-26 21:47] LABS: MANUAL DIFF NO
[2017-05-26 22:02] LABS: CALCIUM 9.1 mg/dL (8.5-10.1); CREATININE 0.8 mg/dL (0.6-1.0); POTASSIUM 3.2 mmol/L (3.5-5.1)
[2017-05-26 22:07] LABS: ALBUMIN 2.3 g/dL (3.4-5.0); TOTAL BILIRUBIN 0.3 mg/dL (<0.1-1.0); TOTAL PROTEIN 7.3 g/dL (6.4-8.2)
[2017-05-26 22:57] VITALS: BP 131/61
[2017-05-27 04:00] VITALS: BP 142/71
[2017-05-27 08:00] VITALS: BP 119/53
[2017-05-27 15:52] VITALS: BP 134/72
[2017-05-27 20:00] VITALS: BP 150/90
[2017-05-28 04:37] VITALS: BP 136/69
[2017-05-28 07:30] VITALS: BP 148/70
[2017-05-28 16:00] VITALS: BP 142/68
[2017-05-28 20:00] VITALS: BP 139/65
[2017-05-29 04:00] VITALS: BP 132/53
[2017-05-29 08:33] VITALS: BP 127/80
[2017-05-29 15:25] VITALS: BP 118/67
[2017-05-29 19:34] VITALS: BP 138/79
[2017-05-29 23:41] VITALS: BP 137/81
[2017-05-30 03:21] VITALS: BP 137/69
[2017-05-30 07:37] VITALS: BP 153/91
[2017-05-30 15:04] VITALS: BP 154/98
[2017-05-30 19:11] VITALS: BP 147/91
[2017-05-31 03:31] VITALS: BP 160/79
[2017-05-31 06:30] LABS: HEMATOCRIT 32.1 % (37.0-47.0); HEMOGLOBIN 10.8 gm/dL (12.0-15.0); MCH 26.8 pg (26.0-34.0); MCHC 33.6 g/dL (28.0-37.0); MCV 79.7 fL (80.0-100.0); RBC 4.03 mil/uL (4.20-5.00); RDW 15.7 % (10.5-14.5)
[2017-05-31 06:54] LABS: ALBUMIN 2.1 g/dL (3.4-5.0); CALCIUM 8.7 mg/dL (8.5-10.1); CREATININE 0.8 mg/dL (0.6-1.0); POTASSIUM 3.8 mmol/L (3.5-5.1); TOTAL BILIRUBIN 0.4 mg/dL (<0.1-1.0); TOTAL PROTEIN 7.2 g/dL (6.4-8.2)
[2017-05-31 07:26] VITALS: BP 155/77
[2017-05-31 15:28] VITALS: BP 160/80
[2017-05-31 19:08] VITALS: BP 158/89
[2017-06-01] VITALS: BP 139/76
[2017-06-01 04:00] VITALS: BP 162/83
[2017-06-01 08:00] VITALS: BP 149/83
[2017-06-01 16:00] VITALS: BP 145/76
[2017-06-01 19:38] VITALS: BP 148/81
[2017-06-02 03:34] VITALS: BP 147/88
[2017-06-02 08:00] VITALS: BP 145/91
[2017-06-02 16:00] VITALS: BP 147/95
[2017-06-02 21:15] VITALS: BP 150/96
[2017-06-03 04:30] VITALS: BP 133/82
[2017-06-03 08:10] VITALS: BP 132/78
[2017-06-03 16:05] VITALS: BP 145/81
[2017-06-03 20:54] VITALS: BP 124/66
[2017-06-04 04:04] VITALS: BP 134/83
[2017-06-04 08:00] VITALS: BP 123/83
[2017-06-04 16:45] VITALS: BP 130/81
[2017-06-04 17:30] VITALS: BP 150/81
[2017-06-04 20:00] VITALS: BP 145/83
[2017-06-05 04:00] VITALS: BP 140/75
[2017-06-05 08:35] VITALS: BP 135/74
[2017-06-05 15:40] VITALS: BP 139/86
== END 2017-06-05 18:11 | DRG 853 ==
LOC: ER 20:24 → EROBS 22:09 → 4E 23:00
PROVIDERS: Family Medicine; Physician Assistant
PROC: 05H933Z Insertion of Infusion Device into Right Brachial Vein, Percutaneous Approach (ICD-10-PCS; principal; 2017-05-28)
PROC: 2W1MX6Z Compression of Left Lower Extremity using Pressure Dressing (ICD-10-PCS; 2017-06-01)
PROC: 0QB30ZZ Excision of Left Pelvic Bone, Open Approach (ICD-10-PCS; 2017-06-04)
PROC: 0QB30ZZ Excision of Left Pelvic Bone, Open Approach (ICD-10-PCS; 2017-06-04)
DX: A41.9 Sepsis, unspecified organism (principal); L89.224 Pressure ulcer of left hip, stage 4; E43 Unspecified severe protein-calorie malnutrition; L03.115 Cellulitis of right lower limb; M86.8X8 Other osteomyelitis, other site; Z68.42 Body mass index [BMI] 45.0-49.9, adult; E11.69 Type 2 diabetes mellitus with other specified complication; E78.5 Hyperlipidemia, unspecified; G20 Parkinson's disease; K21.9 Gastro-esophageal reflux disease without esophagitis; J45.909 Unspecified asthma, uncomplicated; G40.909 Epilepsy, unspecified, not intractable, without status epilepticus; S50.812A Abrasion of left forearm, initial encounter; S80.211A Abrasion, right knee, initial encounter; S90.414A Abrasion, right lesser toe(s), initial encounter; S80.811A Abrasion, right lower leg, initial encounter; X58.XXXA Exposure to other specified factors, initial encounter; D64.9 Anemia, unspecified; R53.81 Other malaise; B19.20 Unspecified viral hepatitis C without hepatic coma; B95.62 Methicillin resistant Staphylococcus aureus infection as the cause of diseases classified elsewhere; Z90.710 Acquired absence of both cervix and uterus; Z93.3 Colostomy status; Z79.899 Other long term (current) drug therapy; Z91.040 Latex allergy status; Q05.9 Spina bifida, unspecified; Z93.6 Other artificial openings of urinary tract status; Y93.89 Activity, other specified; Y92.89 Other specified places as the place of occurrence of the external cause; Y99.8 Other external cause status
CPT/HCPCS: 10183; 27001; 50010; 50101; 50386; 50403; 53353; 53354; 62110; 62900; 70005

== ENCOUNTER 2017-07-23 15:19 | Inpatient (IN) | payer OTHER ==
[~2017-07-23] VITALS: Ht 152.4 cm; Wt 102.1 kg
--- NOTE | ~2017-07-23 | H ---
[facility] [place] [address] HISTORY AND PHYSICAL Name: AUDRA HARRIS Room #: 439-P ADM IN M.R.#: [id number] Admission: 07/23/17 Attend Phys: Steven Rodriguez MD, FAAF Discharge: Date of : 64 Report #: [id number] THIS REPORT FOR: //name// CC: Steven Lopez MD DATE OF SERVICE: 07/23/2017 CHIEF COMPLAINT: Osteomyelitis, left hip. HISTORY OF PRESENT ILLNESS: The patient is a 57-year-old white female well known to me. She is a halfway resident. She has both urostomy and colostomy bags. She has had a chronic decubitus ulcer of the left hip with osteomyelitis. She just underwent 6 weeks of antibiotic therapy at [facility], an LTAC here in [place], returned home where there was a short period of time when her legs start giving out on her, which is a new finding. She was evaluated in the Emergency Department at [facility], found to have an advancing left hip ulcer with persistent osteomyelitis noted on CT scan. PAST MEDICAL HISTORY: GI bleed; epilepsy; seizures; spina bifida; hydrocephalus; mild mental retardation; hepatitis C; self-mutilation; urostomy; mood disorder; hyperlipidemia; Parkinson's disease; rectal prolapse surgery; eczema; GERD; MRSA, 2004 in sputum, 2006 in left chest wound; anemia; asthma; colostomy; hysterectomy due to tumor in uterus; hernia surgeries; polyps removed from colostomy stoma; left hip ulcer with osteomyelitis. MEDICATIONS: Fluconazole 150 mg 1 p.o. daily, ondansetron 4 mg ODT 1 p.o. q.8h. p.r.n. nausea and vomiting, aripiprazole 15 mg p.o. daily, Stalevo 200 mg 1 p.o. t.i.d., Maalox 30 mL p.o. q.6h. p.r.n. indigestion, famotidine 20 mg p.o. daily, Abreva 10 cream applied topically 5 times daily p.r.n., furosemide 20 mg 1 p.o. q.a.m., iron polysaccharides complex, Ferrex 150 one p.o. daily, Sivextro 200 mg p.o. daily, sucralfate 1 gram 2 teaspoons p.o. at bedtime, vitamin C 500 mg 1 p.o. b.i.d., prochlorperazine, Compazine 10 mg 1 p.o. q.6h. p.r.n. nausea, nystatin cream topically to affected skin b.i.d., Mucinex 1200 mg p.o. q.12h., Sudafed 30 mg p.o. t.i.d. p.r.n. sinus congestion, Delsym 10 mL p.o. q.12h. p.r.n. cough, cetirizine 10 mg p.o. daily, imipramine hydrochloride 3 tabs p.o. at bedtime, vitamin D 50,000 international units p.o. weekly on Saturdays, Delzicol 2 caps p.o. q.i.d., Benadryl 25 mg q.6h. p.r.n. itch, acetaminophen 1000 mg p.o. q.4h. p.r.n. pain and limit total daily acetaminophen dosing to under 4000 mg, abreva cream topically b.i.d. p.r.n., zinc sulfate 220 mg p.o. at bedtime, multivitamin with iron 1 p.o. at bedtime, scopolamine patch 1 patch to retroauricular skin change q.72h. [facility] [address] [place] [address] HISTORY AND PHYSICAL Name: AUDRA HARRIS Room #: 439-P ADM IN M.R.#: [id number] Admission: 07/23/17 Attend Phys: Steven Rodriguez MD, FAAF Discharge: Date of : 64 Report #: [id number] ALLERGIES: TO ADHESIVE TAPE. SOCIAL HISTORY: Nondrinker, nonsmoker, halfway resident. FAMILY HISTORY: Noncontributory. REVIEW OF SYSTEMS: GENERAL: No fever, chills, nausea, vomiting or diarrhea. EYES: No visual changes. ENT: No problems with hearing, swallow, taste or smell. CARDIOVASCULAR: No chest pain or palpitations. RESPIRATORY: No difficulty breathing. GASTROINTESTINAL: No abdominal pain. She has colostomy and urostomy exits. GENITOURINARY: Urostomy. MUSCULOSKELETAL: Left hip wound with osteomyelitis and legs giving out, new finding. NEUROLOGIC: Spina bifida. PSYCHIATRIC: Frustrated, not depressed. DERMATOLOGIC: Decubitus ulcer, stage 4 to bone with osteomyelitis, left hip. Remainder of system review was negative. PHYSICAL EXAMINATION: VITAL SIGNS: Temperature 36.7, pulse 116, respirations 20, blood pressure 119/55. She appears fatigued, she thinks medication effect. HEENT: Pupils equal, round, reactive to light and accommodation. Extraocular muscles intact. Pharynx unremarkable. NECK: Supple. COR: S1, S2. CHEST: Clear. ABDOMEN: Soft, nontender. Functioning colostomy and urostomy tubes. EXTREMITIES: She has a softball sized defect in her left hip that delves to bone. CT scan findings consistent with osteomyelitis. LABORATORY EVALUATION: CBC: White count is 8.3, hemoglobin 11.2, hematocrit 34.1, platelets 282,000. Serum chemistry: Sodium 143, potassium 3.3, chloride 109, CO2 18, BUN 37, creatinine 1.0, lactic acid 1.4. ASSESSMENT: Osteomyelitis, left hip; large decubitus ulcer, left hip; Staphylococcus aureus infection, left hip wound, sensitivities pending; colostomy and urostomy. [facility] [address] [address] HISTORY AND PHYSICAL Name: AUDRA HARRIS [facility] Room #: 439-P ADM IN M.R.#: [id number] Admission: 07/23/17 Attend Phys: Steven Rodriguez MD, VIKASH Discharge: Date of : 64 Report #: [id number] PLAN: Admit to hospital. ID consult, IV antibiotics started in the Emergency Department and consults were requested. <ELECTRONICALLY SIGNED> By: Steven Rodriguez MD, FAAFP, FACEP 07/31/17 0745 1404 1442 Steven Rodriguez MD, FAAFP, FACEP /nt
--- NOTE | ~2017-07-23 | HC ---
[facility] [place] [address] CONSULTATION Name: AUDRA HARRIS ODILIA Room #: 439-P ADM IN M.R.#: [id number] Admission: 07/23/17 Attend Phys: Steven Rodriguez [facility], [facility] Discharge: Date of : 64 Report #: [id number] THIS REPORT FOR: //name// CC: [facility] DATE OF SERVICE: 07/24/2017 REASON FOR CONSULTATION: Chronic stage IV pressure ulcer of left hip in a patient with medical deterioration and cellulitis of both legs and increased immobility. HISTORY OF PRESENT ILLNESS: The patient is a 57-year-old woman with multiple sclerosis and chronic debility and immobility who is well known to me from previous admissions including at [facility]. The patient has a large stage IV pressure ulcer of the left intertrochanteric area, which is deep to bone, has not been able to have flap repair due to the patient's poor nutritional status with albumin 2 or less. The patient was admitted to the Emergency Room at [facility] on 07/23/2017 after she had an episode at home where she had weakness in her left lower extremity. Her leg gave out and she fell to the ground. The patient also complains of increased pain in her legs. She was sent to the Emergency Room by Dr. Rodriguez. PAST MEDICAL HISTORY: Spina bifida, debility, history of hepatitis C, mood disorder, mild mental retardation, diabetes. PAST SURGICAL HISTORY: Left-sided colostomy, right-sided urostomy, hysterectomy, multiple hernia surgeries. MEDICATIONS: Include ibuprofen, Flexeril, Diflucan, Zofran, omeprazole, Stalevo, Maalox, Abreva, Lasix, Carafate and vitamins. ALLERGIES: ADHESIVE TAPE. REVIEW OF SYSTEMS: The patient has increased pain in her legs. PHYSICAL EXAMINATION: GENERAL: Shows an obese, chronically debilitated woman who is alert, does respond to pain. Respirations are unlabored. HEENT: Mucous membranes are moist. Abdomen: Obese with a protuberant midline hernia, right-sided urostomy and a left-sided colostomy. EXTREMITIES: Examination of the patient's left hip shows a large oval ulcer 7 x 2 cm at the skin, which probes deep to bone in the intertrochanteric area, is relatively clean. Examination of the lower extremities shows chronic venous [address] [address] CONSULTATION Name: AUDRA HARRIS ODILIA Room #: 439-P [facility] IN M.R.#: [id number] Admission: 07/23/17 Attend Phys: Steven Rodriguez MD, FAAF Discharge: Date of : 64 Report #: [id number] stasis of the lower legs with cellulitis, inflammation and some small open ulcers. These are quite tender. IMPRESSION: 1. Diabetes mellitus type 2 with skin ulcers. 2. Spina bifida with immobility. 3. Severe protein-calorie malnutrition. 4. Obesity. 5. Cellulitis of right and left leg with chronic venous stasis ulcer and inflammation. 6. Chronic left hip stage IV pressure ulcer, which the patient has had for many months. Flap surgery has not been able to be done due to the patient's poor nutrition. PLAN: 1. IV antibiotics. 2. Optifoam to the superficial ulcers of the legs. 3. Quarter strength Dakin's packing to the left hip stage IV ulcer. 4. Maximize nutrition. 5. IV antibiotics, vancomycin. Wound care team will follow. <ELECTRONICALLY SIGNED> By: Abebe Toscano MD 07/27/17 1117 1736 2055 Abebe Toscano MD /nt
--- NOTE | ~2017-07-23 | HC ---
[facility] [place] [address] CONSULTATION Name: AUDRA HARRIS Room #: 439-P ADM IN M.R.#: [id number] Admission: 07/23/17 Attend Phys: Steven Rodriguez MD, [facility] Discharge: Date of : 64 Report #: [id number] THIS REPORT FOR: //name// CC: Steven Rodriguez [facility] DATE OF SERVICE: 07/24/2017 ATTENDING PHYSICIAN: Steven Rodriguez MD. REASON FOR CONSULTATION: Left ischial osteomyelitis. HISTORY OF PRESENT ILLNESS: A 57-year-old white woman residing at [facility] where she suffered a fall and she is evaluated in the Emergency Room and obviously, she is again found to have the stage IV ischial decubitus and CT scan revealed osteomyelitis. The patient has mental retardation, spina bifida and most of the information is gathered from review of records. PAST MEDICAL HISTORY: Spina bifida. Ventriculoperitoneal shunt. Mental retardation. Seizure disorder. Hepatitis C infection. Status post hysterectomy. Status post ileal conduit bladder. Diverting colostomy. Chronic left ischial decubitus infected with MRSA and Pseudomonas in the past and evidence of osteomyelitis by previous CT scans and MRIs. FAMILY HISTORY: See H and P old record. SOCIAL HISTORY: See H and P old record. REVIEW OF SYSTEMS: Chronic pain, eating fairly well, but note is made that she had malnutrition before. PHYSICAL EXAMINATION: GENERAL: Chronically ill-appearing woman. VITAL SIGNS: Temperature maximum 99.6, pulse 110, respirations 18, BP 148/71. HEENMT: Within range. NECK: Supple. LUNGS: Clear. HEART: S1, S2. ABDOMEN: With multiple surgical scars, a left-sided diverting colostomy, right-sided ileal conduit. PELVIC AND RECTAL: Deferred. EXTREMITIES: Reveal left ischial stage IV decubitus with obviously exposed bone. Extremities revealed right leg chronic stasis dermatitis. LABORATORY DATA: Sodium 143, potassium 3.3, chloride 109, BUN 37, creatinine 1, [address] [address] CONSULTATION Name: AUDRA HARRIS [facility] Room #: 439- ADM IN M.R.#: [id number] Admission: 07/23/17 Attend Phys: Steven Rodriguez MD, FAAF Discharge: Date of : 64 Report #: [id number] albumin 2 g/dL. WBC 8300, hemoglobin 11.2 g/dL, platelets 282,000. MICROBIOLOGY DATA: Decubitus culture revealed Staphylococcus aureus, presumptive MRSA. CT scan of the pelvis revealed a decubitus ulceration, left ischial area with underlying osteomyelitis. ASSESSMENT: 1. Spina bifida. 2. Mental retardation. 3. A left ischial decubitus with underlying osteomyelitis - methicillin resistant Staphylococcus aureus infection. 4. Status post diverting colostomy and ileal conduit. 5. Malnutrition. SUGGESTIONS: Recommend continue treatment with vancomycin to be dosed by pharmacy. Add Zosyn 3.375 grams IV every 6 hours. If at all possible, the patient will benefit from surgical intervention and flap closure of decubitus ulcer. Dr. Harris Know, thank you for requesting my suggestions in the care of your patient. <ELECTRONICALLY SIGNED> By: Alexy Moreau MD 07/25/17 1058 1126 1916 Alexy Moreau MD /nt
[~2017-07-23 15:19] MED LIST changes: +DAKIN'S473 M1; +DELSYM30 MG/5 M1 PO; +MUCINEX600 MG PO; +NYAMYC15 GM TOP; +SINEMET 25-2501 EAC1 PO; +SIVEXTRO200 M1 PO; +SUDOGEST30 MG PO
[2017-07-23 15:20] VITALS: BP 127/68
[2017-07-23 17:49] LABS: BASOPHILS 0.7 % (0.0-2.0); EOSINOPHILS 1.5 % (0.0-3.0); HEMATOCRIT 34.1 % (37.0-47.0); HEMOGLOBIN 11.2 gm/dL (12.0-15.0); LYMPHOCYTES 14.4 % (24.0-44.0); MCH 26.4 pg (26.0-34.0); MCHC 32.9 g/dL (28.0-37.0); MONOCYTES 11.1 % (1.0-8.0); PLATELET COUNT 282 thou/uL (150-400); POLYS 72.3 % (36.0-66.0); RBC 4.27 mil/uL (4.20-5.00); RDW 16.4 % (10.5-14.5); WBC 8.3 thou/uL (4.0-11.0)
[2017-07-23 17:58] LABS: CALCIUM 9.4 mg/dL (8.5-10.1); POTASSIUM 3.3 mmol/L (3.5-5.1)
[2017-07-23 18:04] LABS: TOTAL BILIRUBIN 0.3 mg/dL (<0.1-1.0); TOTAL PROTEIN 7.5 g/dL (6.4-8.2)
[2017-07-23] MEDS ORDERED: IBUPROFEN 800800 M1 PO (18:38)
[2017-07-23] MEDS ORDERED: TRANSDERM-SCOP1 EACH TRANSDERM (18:38)
[2017-07-23] MEDS ORDERED: ZOFRAN ODT4 MG DISSOLVE (18:39)
[2017-07-23] MEDS ORDERED: DIFLUCAN150 MG PO (18:39)
[2017-07-23] MEDS ORDERED: PEPCID20 MG (18:39)
[2017-07-23] MEDS ORDERED: ARIPIPRAZOLE15 MG PO (18:39)
[2017-07-23] MEDS ORDERED: CARBIDOPA-LEVO1 EA17 PO (18:40)
[2017-07-23 19:31] VITALS: BP 125/53
[2017-07-23 20:07] LABS: URINE BILIRUBIN NEGATIVE (Negative); URINE BLOOD NEGATIVE (Negative); URINE CLARITY CLEAR; URINE COLOR YELLOW; URINE GLUCOSE-RANDOM* NEGATIVE (Negative); URINE KETONES NEGATIVE (Negative); URINE LEUKOCYTES-REFLEX NEGATIVE (Negative); URINE PROTEIN (DIPSTICK) 1+ (Negative); URINE UROBILINOGEN 0.2 E.U./dl (0.2-1.0)
[2017-07-23 20:08] VITALS: BP 125/53
[2017-07-23 20:10] LABS: URINE NITRITE-REFLEX POSITIVE (Negative)
[2017-07-23 20:26] LABS: CASTS None Seen /LPF (None Seen); MUCUS >6 Heavy strn/LPF (None Seen); SQUAMOUS >10 Many /LPF (0-3); URINE RBC 0-2 Rare /HPF (0-2); URINE WBC-REFLEX 6-15 Few /HPF (0-5)
[2017-07-23 20:27] LABS: CRYSTALS None Seen /LPF (None Seen)
[2017-07-23 20:42] VITALS: BP 135/69
[2017-07-24 03:24] VITALS: BP 148/71
[2017-07-24 09:46] VITALS: BP 119/55
[2017-07-24 10:51] LABS: URINE BILIRUBIN NEGATIVE (Negative); URINE BLOOD TRACE (Negative); URINE CLARITY CLEAR; URINE COLOR YELLOW; URINE GLUCOSE-RANDOM* NEGATIVE (Negative); URINE KETONES NEGATIVE (Negative); URINE LEUKOCYTES-REFLEX NEGATIVE (Negative); URINE NITRITE-REFLEX NEGATIVE (Negative); URINE PROTEIN (DIPSTICK) 1+ (Negative); URINE SPECIFIC GRAVITY 1.015 (1.005-1.035); URINE UROBILINOGEN 0.2 E.U./dl (0.2-1.0)
[2017-07-24 11:02] LABS: BACTERIA-REFLEX None Seen /HPF (None Seen); SQUAMOUS 0-3 Few /LPF (0-3)
[2017-07-24 11:03] LABS: AMORPHOUS URATES Few /LPF (None Seen); FINE GRANULAR CASTS 0-3 Few /LPF (None Seen); URINE RBC 0-2 Rare /HPF (0-2); URINE WBC-REFLEX 6-15 Few /HPF (0-5)
[2017-07-24 17:35] VITALS: BP 145/82
[2017-07-24 19:57] VITALS: BP 135/58
[2017-07-25 05:14] VITALS: BP 147/68
[2017-07-25 07:32] VITALS: BP 142/67
[2017-07-25 16:15] VITALS: BP 159/77
[2017-07-25 22:34] VITALS: BP 164/76
[2017-07-26 04:44] VITALS: BP 150/77
[2017-07-26 08:00] VITALS: BP 147/84
[2017-07-26 14:10] LABS: CALCIUM 8.7 mg/dL (8.5-10.1); CREATININE 0.9 mg/dL (0.6-1.0); POTASSIUM 3.7 mmol/L (3.5-5.1)
[2017-07-26 16:00] VITALS: BP 144/72
[2017-07-26 20:51] VITALS: BP 131/77
[2017-07-27 03:29] VITALS: BP 129/57
[2017-07-27 08:00] VITALS: BP 140/70
[2017-07-27 16:00] VITALS: BP 122/68
[2017-07-27 19:22] VITALS: BP 137/92
[2017-07-28 03:50] VITALS: BP 132/80
[2017-07-28 09:28] VITALS: BP 115/71
[2017-07-28 17:47] VITALS: BP 140/60
[2017-07-28 20:00] VITALS: BP 135/62
[2017-07-29 03:16] VITALS: BP 141/61
[2017-07-29 08:00] VITALS: BP 100/69
[2017-07-29 14:17] VITALS: BP 100/69
[2017-07-29 16:00] VITALS: BP 128/64
[2017-07-29 20:25] VITALS: BP 132/73
[2017-07-30 04:38] VITALS: BP 131/76
[2017-07-30 08:00] VITALS: BP 112/66
[2017-07-30 16:00] VITALS: BP 132/65
[2017-07-30 20:11] VITALS: BP 139/67
[2017-07-31 04:54] VITALS: BP 93/42
[2017-07-31 08:22] VITALS: BP 116/76
[2017-07-31 16:12] VITALS: BP 121/73
[2017-07-31 20:00] VITALS: BP 114/60
[2017-08-01 03:34] VITALS: BP 120/68
[2017-08-01 05:40] LABS: BASOPHILS 1.2 % (0.0-2.0); HEMATOCRIT 28.3 % (37.0-47.0); HEMOGLOBIN 9.4 gm/dL (12.0-15.0); LYMPHOCYTES 28.8 % (24.0-44.0); MCH 26.4 pg (26.0-34.0); MCHC 33.2 g/dL (28.0-37.0); MCV 79.3 fL (80.0-100.0); MONOCYTES 9.8 % (1.0-8.0); PLATELET COUNT 319 thou/uL (150-400); POLYS 56.2 % (36.0-66.0); RBC 3.56 mil/uL (4.20-5.00); WBC 7.1 thou/uL (4.0-11.0)
[2017-08-01 05:59] LABS: ALBUMIN 1.7 g/dL (3.4-5.0); CALCIUM 8.1 mg/dL (8.5-10.1); CREATININE 1.1 mg/dL (0.6-1.0); POTASSIUM 3.9 mmol/L (3.5-5.1); TOTAL BILIRUBIN 0.3 mg/dL (<0.1-1.0); TOTAL PROTEIN 6.7 g/dL (6.4-8.2)
[2017-08-01 06:02] LABS: % SATURATION 14 % (20-39); IRON 28 ug/dL (50-170); TIBC 207 ug/dL (250-450)
[2017-08-01 08:00] VITALS: BP 100/47
[2017-08-01 16:00] VITALS: BP 116/59
[2017-08-01 21:05] VITALS: BP 150/84
[2017-08-02 04:32] VITALS: BP 147/67
[2017-08-02 09:05] VITALS: BP 149/49
[2017-10-03] MEDS ORDERED: AUGMENTIN 875-1 EACH PO (18:06)
== END 2017-08-02 15:32 | DRG 637 ==
LOC: ER 15:19 → 4S 18:57 → EROBS 18:57 → 4S 20:22
PROVIDERS: Emergency Medicine; Family Medicine; Internal Medicine Infectious Disease
PROC: 02HV33Z Insertion of Infusion Device into Superior Vena Cava, Percutaneous Approach (ICD-10-PCS; principal; 2017-07-29)
PROC: B5181ZA Fluoroscopy of Superior Vena Cava using Low Osmolar Contrast, Guidance (ICD-10-PCS; principal; 2017-07-29)
PROC: B548ZZA Ultrasonography of Superior Vena Cava, Guidance (ICD-10-PCS; principal; 2017-07-29)
DX: E11.69 Type 2 diabetes mellitus with other specified complication (principal); E43 Unspecified severe protein-calorie malnutrition; L89.224 Pressure ulcer of left hip, stage 4; L03.116 Cellulitis of left lower limb; L03.115 Cellulitis of right lower limb; Z68.41 Body mass index [BMI] 40.0-44.9, adult; M86.8X8 Other osteomyelitis, other site; G40.909 Epilepsy, unspecified, not intractable, without status epilepticus; F39 Unspecified mood [affective] disorder; E78.5 Hyperlipidemia, unspecified; K21.9 Gastro-esophageal reflux disease without esophagitis; J45.909 Unspecified asthma, uncomplicated; F79 Unspecified intellectual disabilities; E66.9 Obesity, unspecified; I87.2 Venous insufficiency (chronic) (peripheral); G20 Parkinson's disease; S71.002A Unspecified open wound, left hip, initial encounter; B95.62 Methicillin resistant Staphylococcus aureus infection as the cause of diseases classified elsewhere; Z93.3 Colostomy status; Z86.19 Personal history of other infectious and parasitic diseases; Z90.710 Acquired absence of both cervix and uterus; Q05.9 Spina bifida, unspecified; Z79.899 Other long term (current) drug therapy
CPT/HCPCS: 10195

== ENCOUNTER → 2017-09-04 | Outpatient (CLI) | payer OTHER ==
[~2017-09-04] MED LIST changes: +ARIPIPRAZOLE15 MG PO; +AUGMENTIN 875-1 EACH PO; +CARBIDOPA-LEVO1 EA17 PO; +DIFLUCAN150 MG PO; +IBUPROFEN 800800 M1 PO; +PEPCID20 MG; +TRANSDERM-SCOP1 EACH TRANSDERM; +ZOFRAN ODT4 MG DISSOLVE
== END ==
LOC: HYPER 06:51
DX: T81.31XD Disruption of external operation (surgical) wound, not elsewhere classified, subsequent encounter (principal); M86.452 Chronic osteomyelitis with draining sinus, left femur; E66.01 Morbid (severe) obesity due to excess calories; Z68.41 Body mass index [BMI] 40.0-44.9, adult; Z90.710 Acquired absence of both cervix and uterus; Y83.8 Other surgical procedures as the cause of abnormal reaction of the patient, or of later complication, without mention of misadventure at the time of the procedure

== ENCOUNTER 2017-10-23 16:21 | Emergency (ER) | payer OTHER ==
[~2017-10-23] VITALS: Ht 165.1 cm; Wt 81.7 kg
[2017-10-23 19:33] LABS: ABSOLUTE NEUTROPHILS 2.8 thou/uL (1.4-8.2); BASOPHILS 0.6 % (0.0-2.0); EOSINOPHILS 4.7 % (0.0-3.0); HEMATOCRIT 35.7 % (37.0-47.0); HEMOGLOBIN 11.6 gm/dL (12.0-15.0); LYMPHOCYTES 36.1 % (24.0-44.0); MCH 25.9 pg (26.0-34.0); MCHC 32.7 g/dL (28.0-37.0); MCV 79.3 fL (80.0-100.0); MONOCYTES 7.1 % (1.0-8.0); PLATELET COUNT 167 thou/uL (150-400); POLYS 51.5 % (36.0-66.0); RDW 20.5 % (10.5-14.5); WBC 5.5 thou/uL (4.0-11.0)
[2017-10-23 19:43] LABS: CALCIUM 8.8 mg/dL (8.5-10.1); POTASSIUM 3.5 mmol/L (3.5-5.1)
[2017-10-23 19:48] LABS: ALBUMIN 2.7 g/dL (3.4-5.0); DIRECT BILIRUBIN 0.1 mg/dL (<0.1-0.3); TOTAL BILIRUBIN 0.2 mg/dL (<0.1-1.0); TOTAL PROTEIN 7.6 g/dL (6.4-8.2)
[2017-10-23 20:04] LABS: ANISOCYTOSIS 1+
[2017-10-23] MEDS ORDERED: AUGMENTIN 875-1 EACH PO (20:37)
[2017-10-23 21:26] VITALS: BP 151/82
== END 2017-10-23 21:51 | disposition home or self-care (01) ==
LOC: ER 16:21
PROVIDERS: Emergency Medicine
DX: S31.010A Laceration without foreign body of lower back and pelvis without penetration into retroperitoneum, initial encounter (principal); E11.9 Type 2 diabetes mellitus without complications; K21.9 Gastro-esophageal reflux disease without esophagitis; J45.909 Unspecified asthma, uncomplicated; G40.909 Epilepsy, unspecified, not intractable, without status epilepticus; Z90.710 Acquired absence of both cervix and uterus; X58.XXXA Exposure to other specified factors, initial encounter; Y93.89 Activity, other specified; Y92.89 Other specified places as the place of occurrence of the external cause; Y99.8 Other external cause status

== ENCOUNTER → 2017-12-16 | Outpatient (CLI) | payer OTHER | LOC: HYPER 07:30 | DX: T81.31XD Disruption of external operation (surgical) wound, not elsewhere classified, subsequent encounter (principal); S81.811A Laceration without foreign body, right lower leg, initial encounter; M86.452 Chronic osteomyelitis with draining sinus, left femur; E66.01 Morbid (severe) obesity due to excess calories; M86.8X8 Other osteomyelitis, other site; Z90.710 Acquired absence of both cervix and uterus; X58.XXXA Exposure to other specified factors, initial encounter; Y93.89 Activity, other specified; Y92.89 Other specified places as the place of occurrence of the external cause; Y99.8 Other external cause status; Y83.8 Other surgical procedures as the cause of abnormal reaction of the patient, or of later complication, without mention of misadventure at the time of the procedure ==

== ENCOUNTER → 2018-01-06 | Outpatient (CLI) | payer OTHER | LOC: HYPER 06:55 | DX: T81.31XD Disruption of external operation (surgical) wound, not elsewhere classified, subsequent encounter (principal); S81.811D Laceration without foreign body, right lower leg, subsequent encounter; M86.452 Chronic osteomyelitis with draining sinus, left femur; E66.01 Morbid (severe) obesity due to excess calories; Z68.41 Body mass index [BMI] 40.0-44.9, adult; Z90.710 Acquired absence of both cervix and uterus; X58.XXXD Exposure to other specified factors, subsequent encounter; Y83.8 Other surgical procedures as the cause of abnormal reaction of the patient, or of later complication, without mention of misadventure at the time of the procedure ==

== ENCOUNTER → 2018-01-14 | Outpatient (CLI) | payer OTHER | LOC: HYPER 07:05 | DX: T81.31XD Disruption of external operation (surgical) wound, not elsewhere classified, subsequent encounter (principal); M86.452 Chronic osteomyelitis with draining sinus, left femur; N90.818 Other female genital mutilation status; E66.01 Morbid (severe) obesity due to excess calories; Z68.41 Body mass index [BMI] 40.0-44.9, adult; Z90.710 Acquired absence of both cervix and uterus; Y83.8 Other surgical procedures as the cause of abnormal reaction of the patient, or of later complication, without mention of misadventure at the time of the procedure ==

== ENCOUNTER → 2018-03-11 | Outpatient (CLI) | payer OTHER | LOC: HYPER 07:05 | DX: T81.31XD Disruption of external operation (surgical) wound, not elsewhere classified, subsequent encounter (principal); S81.801A Unspecified open wound, right lower leg, initial encounter; M86.452 Chronic osteomyelitis with draining sinus, left femur; E66.01 Morbid (severe) obesity due to excess calories; Z68.41 Body mass index [BMI] 40.0-44.9, adult; Y83.8 Other surgical procedures as the cause of abnormal reaction of the patient, or of later complication, without mention of misadventure at the time of the procedure; X58.XXXA Exposure to other specified factors, initial encounter; Y93.89 Activity, other specified; Y92.89 Other specified places as the place of occurrence of the external cause; Y99.8 Other external cause status ==

== ENCOUNTER → 2018-04-01 | Outpatient (CLI) | payer OTHER | LOC: HYPER 06:57 | DX: T81.31XD Disruption of external operation (surgical) wound, not elsewhere classified, subsequent encounter (principal); S71.112D Laceration without foreign body, left thigh, subsequent encounter; M86.452 Chronic osteomyelitis with draining sinus, left femur; E66.01 Morbid (severe) obesity due to excess calories; M86.8X8 Other osteomyelitis, other site; Z68.41 Body mass index [BMI] 40.0-44.9, adult; X58.XXXD Exposure to other specified factors, subsequent encounter; Y83.8 Other surgical procedures as the cause of abnormal reaction of the patient, or of later complication, without mention of misadventure at the time of the procedure ==

== ENCOUNTER → 2018-04-18 | Outpatient (CLI) | payer OTHER | LOC: RAD 04:51 | DX: Z12.31 Encounter for screening mammogram for malignant neoplasm of breast (principal) ==

== ENCOUNTER → 2018-05-15 | Outpatient (CLI) | payer OTHER | LOC: HYPER 07:07 | DX: T81.31XD Disruption of external operation (surgical) wound, not elsewhere classified, subsequent encounter (principal); M86.452 Chronic osteomyelitis with draining sinus, left femur; E66.01 Morbid (severe) obesity due to excess calories; G40.909 Epilepsy, unspecified, not intractable, without status epilepticus; Y83.8 Other surgical procedures as the cause of abnormal reaction of the patient, or of later complication, without mention of misadventure at the time of the procedure ==

== ENCOUNTER → 2018-06-18 | Outpatient (CLI) | payer OTHER | LOC: HYPER 07:15 | DX: T81.31XD Disruption of external operation (surgical) wound, not elsewhere classified, subsequent encounter (principal); S81.811D Laceration without foreign body, right lower leg, subsequent encounter; M86.452 Chronic osteomyelitis with draining sinus, left femur; E66.01 Morbid (severe) obesity due to excess calories; G40.909 Epilepsy, unspecified, not intractable, without status epilepticus; Z68.41 Body mass index [BMI] 40.0-44.9, adult; X58.XXXD Exposure to other specified factors, subsequent encounter; Y83.8 Other surgical procedures as the cause of abnormal reaction of the patient, or of later complication, without mention of misadventure at the time of the procedure ==

== ENCOUNTER 2019-02-22 20:24 | Emergency (ER) | payer OTHER ==
[~2019-02-22] VITALS: Ht 162.6 cm; Wt 111.1 kg
[2019-02-22 20:25] VITALS: BP 136/72
[2019-02-22] MEDS ORDERED: NORFLEX100 MG PO (20:56)
--- NOTE | 2019-02-23 08:17 | EKG ---
[facility] [place] [address] ELECTROCARDIOGRAM REPORT Name: AUDRA HARRIS ODILIA [facility] [id number] Admission: 02/22/19 Attend Phys: Discharge: 02/22/19 Date of : 64 Report #: [id number] THIS REPORT FOR: //name// [facility] ED Test Date: 2019-02-22 Test Time: 20:33:19 Pat Name: AUDRA HARRIS Department: Room: Gender: F Security Researcher: MINI : 1960 Requested By: Dereck Armstrong Order Number: [id number] MD: Steve Díaz Measurements Intervals [place] Rate: 86 P: 72 CO: 130 QRS: -35 QRSD: 115 T: 47 QT: 403 QTc: 482 Interpretive Statements Sinus rhythm Ventricular trigeminy Poor R wave progression Inferior infarct, age indeterminate Compared to ECG 04/12/2017 22:15:05 Inferior Q waves are more prominent Electronically Signed On 02-23-2019 8:17:32 CDT by Steve Díaz [email or web address] <ELECTRONICALLY SIGNED> By: Steve Díaz MD, [facility] 02/23/19816 32 32 Steve Díaz MD, [facility] /EPI
== END 2019-02-22 21:54 | disposition home or self-care (01) ==
LOC: ER 20:24
DX: M43.6 Torticollis (principal); E78.5 Hyperlipidemia, unspecified; F39 Unspecified mood [affective] disorder; K21.9 Gastro-esophageal reflux disease without esophagitis; J45.909 Unspecified asthma, uncomplicated; E11.9 Type 2 diabetes mellitus without complications; G20 Parkinson's disease; Z86.14 Personal history of Methicillin resistant Staphylococcus aureus infection; Z86.2 Personal history of diseases of the blood and blood-forming organs and certain disorders involving the immune mechanism; Z98.890 Other specified postprocedural states; Z91.048 Other nonmedicinal substance allergy status

== ENCOUNTER 2019-04-06 08:08 | Inpatient (IN) | payer OTHER ==
[~2019-04-06] VITALS: Ht 167.6 cm; Wt 99.8 kg
[~2019-04-06 08:08] MED LIST changes: +NORFLEX100 MG PO
[2019-04-06 08:09] VITALS: BP 136/72
[2019-04-06] MEDS ORDERED: NORVASC5 MG PO (08:34)
[2019-04-06] MEDS ORDERED: COMTAN200 MG PO (08:35)
[2019-04-06 09:13] LABS: ABSOLUTE NEUTROPHILS 11.1 thou/uL (1.4-8.2); BASOPHILS 0.6 % (0.0-2.0); EOSINOPHILS 0.6 % (0.0-3.0); HEMATOCRIT 42.5 % (37.0-47.0); HEMOGLOBIN 14.1 gm/dL (12.0-15.0); LYMPHOCYTES 4.2 % (24.0-44.0); MCH 28.4 pg (26.0-34.0); MCHC 33.2 g/dL (28.0-37.0); MCV 85.4 fL (80.0-100.0); MONOCYTES 6.1 % (1.0-8.0); PLATELET COUNT 139 thou/uL (150-400); POLYS 88.5 % (36.0-66.0); RBC 4.98 mil/uL (4.20-5.00); WBC 12.5 thou/uL (4.0-11.0)
[2019-04-06 09:15] LABS: ANION GAP 14 mmol/L (7-16); BUN 22 mg/dL (7-18); CALCIUM 9.2 mg/dL (8.5-10.1); CHLORIDE 107 mmol/L (98-107); CO2 18 mmol/L (21-32); CREATININE 1.3 mg/dL (0.6-1.0); GLUCOSE 97 mg/dL (74-106); SODIUM 139 mmol/L (136-145)
[2019-04-06 09:20] LABS: POTASSIUM 3.9 mmol/L (3.5-5.1)
[2019-04-06 09:24] LABS: ALBUMIN 3.1 g/dL (3.4-5.0); LIPASE 656 U/L (73-393); SGOT 67 U/L (15-37); SGPT 53 U/L (30-65); TOTAL BILIRUBIN 0.6 mg/dL (<0.1-1.0); TOTAL PROTEIN 7.5 g/dL (6.4-8.2); TROPONIN-I <0.06 ng/mL (<0.06)
[2019-04-06 09:50] LABS: URINE BILIRUBIN NEGATIVE (Negative); URINE BLOOD 2+ (Negative); URINE CLARITY CLOUDY; URINE COLOR YELLOW; URINE GLUCOSE-RANDOM* NEGATIVE (Negative); URINE KETONES NEGATIVE (Negative); URINE PROTEIN (DIPSTICK) 2+ (Negative); URINE UROBILINOGEN 0.2 E.U./dl (0.2-1.0)
[2019-04-06 09:56] LABS: URINE LEUKOCYTES-REFLEX 3+ (Negative); URINE NITRITE-REFLEX POSITIVE (Negative)
[2019-04-06 10:05] LABS: AMORPHOUS URATES Many /LPF (None Seen); CASTS None Seen /LPF (None Seen); SQUAMOUS None Seen /LPF (0-3); URINE WBC-REFLEX 6-15 Few /HPF (0-5)
[2019-04-06 16:22] VITALS: BP 107/50
[2019-04-06 16:45] VITALS: BP 117/50
[2019-04-06 16:50] VITALS: BP 117/50
--- NOTE | 2019-04-06 17:14 | EKG ---
[place] [address] [facility] [place] [address] ELECTROCARDIOGRAM REPORT Name: AUDRA HARRIS Room #: 457-P ADM IN M.R.#: [id number] Admission: 04/06/19 Attend Phys: Steven Rodriguez MD, FAAF Discharge: Date of : 64 Report #: [id number] THIS REPORT FOR: //name// [facility] ED Test Date: 2019-04-06 Test Time: 09:04:01 Pat Name: AUDRA HARRIS Department: Room: 457 Gender: F Service Officer: JENNIFER : 1960 Requested By: Chano Cha Order Number: [id number] MD: Steve Díaz Measurements Intervals [place] Rate: 85 P: 63 SC: 143 QRS: -38 QRSD: 96 T: 62 QT: 353 QTc: 420 Interpretive Statements Sinus rhythm Ventricular trigeminy Abnormal R-wave progression, late transition Inferior infarct, old Compared to ECG 02/22/2019 20:33:19 no significant change was found Electronically Signed On 04-06-2019 17:14:08 CDT by Steve Díaz [email or web address] <ELECTRONICALLY SIGNED> By: Steve Díaz MD, [facility] 04/06/19 9884 0904 0904 Steve Díaz MD, [facility] /EPI
--- NOTE | 2019-04-06 19:35 | NUR ---
Patient arrived on unit fe ER at 1650. Patient was admitted for UTI and abdominal pain. She had some nausea and vomiting in the early am. Patient has orders for Zofran and Morphine IV push but arrived on unit with IV that is not patent. IV Team has been called per patient request. Patient has a long medical history. She has a colostomy and urostomy which she claims that she cares for herself. Vital signs are stable, she appears to be very comfortable and calm. Patient is noted to have mild mental delay. She has not been bathing appropriately, as she has redness between the folds of her skin and has foul body odor. This nurse assisted her with rolling on her side, as she informed this nurse that she does have a scar from an old pressure ulcer; the left buttock does have a old scar, it is intact. Patient is on Oxygen at 2 Liters per nc. She does not use oxygen at home. IV Nurse to place a new IV. Report given to abigail Boykin RN.
[2019-04-06 20:35] VITALS: BP 125/36
[2019-04-07 04:27] VITALS: BP 101/57
[2019-04-07] MEDS ORDERED: MECLIZINE HCL25 M1 PO (04:59)
[2019-04-07] MEDS ORDERED: NYSTATIN 100,0015 G1 TOP (05:01)
--- NOTE | 2019-04-07 06:00 | NUR ---
Pt. rested quietly during the night when checked on during frequent rounds. She denies being nausea, but c/o some abdominal pain. No medication intervention needed for pain. She was able to rest quietly with quiet environment. Bed bath was given which provided some relaxation. Bed alarm is on.
[2019-04-07 07:18] LABS: HEMATOCRIT 40.2 % (37.0-47.0); HEMOGLOBIN 13.2 gm/dL (12.0-15.0); MCH 28.3 pg (26.0-34.0); MCHC 32.9 g/dL (28.0-37.0); MCV 85.9 fL (80.0-100.0); RBC 4.68 mil/uL (4.20-5.00); RDW 14.1 % (10.5-14.5); WBC 21.9 thou/uL (4.0-11.0)
[2019-04-07 08:00] VITALS: BP 122/72
[2019-04-07 09:13] LABS: ABSOLUTE NEUTROPHILS 15.3 thou/uL (1.4-8.2); PLATELET COUNT 138 thou/uL (150-400); PLATELET ESTIMATE NORMAL
--- NOTE | 2019-04-07 10:09 | NUR ---
OSTOMY CARE; pt well known to this wocn nurse, pt unsure how long ostomy pouches have been on? loose edges, new urostomy pouch applied jocelyne 1 1/8' convex w/ adapt ring under wafer, stoma pink viable flat w/ skin surface, yellow urine noted, connected to new dep drainage bag, colostomy left abd, red slightly budded, several granulomas present, slight bleeding, new pouch jocelyne 2 piece system applied w/ adapt ring under wafer, suggest surgeon eval granulomas, cooperative w/ care, engineer technical staff informed of care, photo of stoma granulomas taken and placed in chart, supplies at bs, will contact pcp if repeat UA needed as new pouch on and surgeon regarding granulomas
[2019-04-07 10:56] LABS: ALBUMIN 2.5 g/dL (3.4-5.0); CALCIUM 8.6 mg/dL (8.5-10.1); CREATININE 1.2 mg/dL (0.6-1.0); POTASSIUM 3.7 mmol/L (3.5-5.1); TOTAL BILIRUBIN 0.4 mg/dL (<0.1-1.0); TOTAL PROTEIN 6.2 g/dL (6.4-8.2)
--- NOTE | 2019-04-07 11:33 | NUR ---
OSTOMY CARE; DR AGGARWAL informed of new urostomy pouch and new drainage system applied today, order to repeat UA,C&S, staff field engineer Carol notified.
[2019-04-07 11:56] LABS: URINE BILIRUBIN NEGATIVE (Negative); URINE BLOOD 2+ (Negative); URINE CLARITY CLEAR; URINE COLOR YELLOW; URINE GLUCOSE-RANDOM* NEGATIVE (Negative); URINE KETONES NEGATIVE (Negative); URINE LEUKOCYTES-REFLEX 2+ (Negative); URINE NITRITE-REFLEX NEGATIVE (Negative); URINE PROTEIN (DIPSTICK) 2+ (Negative); URINE UROBILINOGEN 0.2 E.U./dl (0.2-1.0)
[2019-04-07 12:20] LABS: CASTS None Seen /LPF (None Seen); SQUAMOUS 0-3 Few /LPF (0-3)
[2019-04-07 12:21] LABS: BACTERIA-REFLEX 1-9 Few /HPF (None Seen); CRYSTALS None Seen /LPF (None Seen); URINE RBC 3-10 Few /HPF (0-2)
[2019-04-07 16:10] VITALS: BP 110/67
--- NOTE | 2019-04-07 16:10 | NUR ---
PT ADMITTED RELATED TO ABDOMINAL PAIN AND UTI. PT IS FROM [facility]. PT HAD LIVED THERE FOR 25 YEARS. CM MET WITH PT AT BEDSIDE THIS DAY. PT IS A&O X4. CM INDICATED THAT SHE HAD USED A 4WW WITH A SEAT TO ASSIT WITH MOBILITY BACK PADDER. PT INDICATED THAT SHE HAD BEEN TO [facility] FOR IV ABX IN THE PAST. CM CALLED JACY DIRECTOR AT [facility] AND SHE IS FOLLOWING PT AND ANTICIPATING HER RETURN. CM TO FOLLOW INDICATED WITH DC PLANNING.
--- NOTE | 2019-04-07 18:32 | NUR ---
Assumed patient are at 0715. Patient has been placed on Contact Isolation until MRSA is ruled out. UA and Nares Cultures sent to lab today. Patient's vital signs have been stable. She has been placed on clear liquids as of today. Patient is pleasant and compliant with all tests and treatments. She has had no adverse reactions to her IV Antibiotic Treatments. Will continue to monitor.
[2019-04-07 22:34] VITALS: BP 142/63
--- NOTE | 2019-04-08 04:23 | NUR ---
PT IS A/O X4.PT HAS A COLOSTOMY AND UROSTOMY.IV ACCCESS ON RT WRIST .PT IS DC FOR ISOLATION PREC CAUSE MRSA IS NEGATIVE.PT IS ON CLEAR FLUID DIET.CONTINUE POC
[2019-04-08 06:10] LABS: ABSOLUTE NEUTROPHILS 7.5 thou/uL (1.4-8.2); BASOPHILS 0.6 % (0.0-2.0); EOSINOPHILS 2.4 % (0.0-3.0); HEMATOCRIT 39.7 % (37.0-47.0); HEMOGLOBIN 13.2 gm/dL (12.0-15.0); LYMPHOCYTES 16.3 % (24.0-44.0); MCH 28.6 pg (26.0-34.0); MCHC 33.2 g/dL (28.0-37.0); MCV 86.3 fL (80.0-100.0); PLATELET COUNT 108 thou/uL (150-400); POLYS 71.7 % (36.0-66.0); RBC 4.61 mil/uL (4.20-5.00); RDW 14.4 % (10.5-14.5); WBC 10.4 thou/uL (4.0-11.0)
[2019-04-08 06:27] LABS: ALBUMIN 2.2 g/dL (3.4-5.0); CALCIUM 8.5 mg/dL (8.5-10.1); POTASSIUM 4.1 mmol/L (3.5-5.1); TOTAL BILIRUBIN 0.5 mg/dL (<0.1-1.0); TOTAL PROTEIN 6.3 g/dL (6.4-8.2)
[2019-04-08 07:32] VITALS: BP 131/67
--- NOTE | 2019-04-08 10:23 | NUR ---
OSTOMY CARE; POUCHES INTACT NO LEAKAGE, DISCUSSED COLOSTOMY GRANULOMAS W/ CHALO BEEBE'Ladonna USE OF SILVER NITRATE PRN, WILL CONT TO FOLLOW, SUPPLIES AT BS
--- NOTE | 2019-04-08 14:57 | H ---
[facility] [place] [address] HISTORY AND PHYSICAL Name: AUDRA HARRIS Room #: 457-P ADM IN M.R.#: [id number] Admission: 04/06/19 Attend Phys: Steven Rodriguez MD, FAAF Discharge: Date of : 64 Report #: [id number] THIS REPORT FOR: //name// CC: Steven Hernandez . DATE OF SERVICE: 04/07/2019 Observation on 04/07/2019 to regular admission status. CHIEF COMPLAINT: Abdominal pain; UTI. HISTORY OF PRESENT ILLNESS: The patient is a 58-year-old white female well known to me. She is a long term resident with multiple ongoing medical problems. She has felt poorly over the last several days, has had diarrhea the last 2 days last week, vomited on the day of admission, has felt poorly and fatigued. She is evaluated for abdominal pain to the Emergency Department at [facility], found to have some peristomal hernia. She has both colostomy and a urostomy and a urine from her urostomy appeared to be infected. She had an elevated white count. She is placed on IV antibiotics and General Surgery consult is obtained. She was placed on IV fluids, IV Rocephin and hospitalized. This morning, she had a markedly elevated white count in the 21,000 range despite Rocephin in the night, I was notified that she had a positive blood culture initially for gram-negative rods and I added Cipro into the antibiotic regimen. She is feeling better this morning. PAST MEDICAL HISTORY: Colostomy, placed 5 years ago, GI bleed, epilepsy, seizures, spina bifida, hydrocephalus, mild mental delay, hepatitis C, anemia, mood disorder, hyperlipidemia, eczema, gastroesophageal reflux disease, anemia, asthma, MRSA in 2005 in sputum, in 2006 on the left chest wound. Urostomy due to one kidney and bladder removed due to infection as hysterectomy from uterine tumor. Multiple hernia surgeries, colostomy stoma and then diabetes, Parkinson's disease. CURRENT MEDICATIONS: Ibuprofen 800 mg t.i.d. p.r.n. pain, Zofran 4 mg 1 p.o. q. 8 hours p.r.n. nausea, carbidopa/levodopa, entacapone (Stalevo) 200 tablet 1 p.o. t.i.d., Maalox maximum strength suspension 30 mL q.6 hours p.r.n. indigestion, famotidine 20 mg p.o. daily, Abreva cream 5 times daily to affected skin, Lasix 20 mg 1 p.o. q.a.m., Ferrex 150, 1 p.o. daily, ascorbic acid 500 mg 1 p.o. b.i.d., nystatin powder to affected skin topically b.i.d., Sudafed 30 mg p.o. t.i.d. p.r.n., sinus congestion, Delsym 10 mL p.o. daily p.r.n. cough, Norvasc 5 mg 1 p.o. daily, Comtan 200 mg 1 p.o. t.i.d., imipramine 3 tabs p.o. at bedtime, vitamin D2 50,000 International Units p.o. weekly on Saturdays, Benadryl 25 mg q.6 hours p.r.n. itch, Minerin cream daily p.r.n., zinc sulfate 220 mg 1 p.o. at bedtime, multivitamin with iron and other minerals 1 p.o. at bedtime and Abilify 15 mg 1 p.o. at bedtime. [facility] [address] [place] [address] HISTORY AND PHYSICAL Name: AUDRA HARRIS Room #: 457-P [facility] IN .[place].#: [id number] Admission: 04/06/19 Attend Phys: Steven Rodriguez MD, FAAF Discharge: Date of : 64 Report #: [id number] ALLERGIES: TAPE. SOCIAL HISTORY: Nonsmoker, nondrinker, long term resident. FAMILY HISTORY: Noncontributory. REVIEW OF SYSTEMS: Positive for diarrhea, nausea and vomiting, fatigue and abdominal pain. Negative for fever and chills. Negative for eye pain or visual changes. She has not had sore throat or rhinorrhea. No cough or shortness of breath. CARDIOVASCULAR: No chest pain or palpitations. GENITOURINARY: She has urostomy and colostomy. MUSCULOSKELETAL: No muscle or back pain. DERMATOLOGIC: No rashes. She does have granulomas around her stoma sites. NEUROLOGIC: No numbness, tingling, or weakness. Remainder of system review is negative. OBJECTIVE: PHYSICAL EXAMINATION: VITAL SIGNS: Temperature is 37.1, pulse 62, respirations 20, blood pressure 136/72, pulse ox 92% on 2 liters. She weighs 95.26 kilograms or 210 pounds. GENERAL: She appears fatigued, but in no acute distress. Speaks full sentences. HEENT: Pupils equal, round, reactive to light and accommodation. Extraocular muscles are intact. Pharynx is unremarkable. NECK: Supple. COR: S1, S2. CHEST: Clear. ABDOMEN: Soft. Has a functioning colostomy and urostomy, obese, nontender. EXTREMITIES: Large, but not edematous. DIAGNOSTIC STUDIES: EKG shows sinus rhythm, rate 75, no STEMI. LABORATORY EVALUATION: CBC: White count is 12.5 jumped to 21,000 on the morning of her second hospital day first day of admission, hemoglobin 14.1, hematocrit 42.5, platelet 139,000. Serum chemistry: Sodium 139, potassium 3.9, chloride 107, CO2 18, anion gap of 14, BUN 22, creatinine 1.3, glucose 97. Estimated glomerular filtration rate is 42. Lactate 1.4, calcium 9.2, total bilirubin 0.6, AST 67, ALT 53, alkaline phosphatase 132. Troponin is less than 0.06. Total protein 7.5, albumin 3.1, lipase 656. Urine from her urostomy showed a yellow cloudy urine, specific gravity 1.010, pH greater than 9, 2+ protein noted, 2+ blood, positive nitrite, 3+ leukocyte esterase, 2+ protein, negative ketones, negative bilirubin, 11-20 red cells per high powered field, 6-15 white cells per high powered field, no urinary squamous epithelial cells, many amorphous urate crystals, 10-30 urinary bacteria, no casts and negative [address] [address] HISTORY AND PHYSICAL Name: AUDRA HARRIS ODILIA Room #: 457-P [facility] IN .R.#: [id number] Admission: 04/06/19 Attend Phys: Steven Rodriguez MD, FAAF Discharge: Date of : 64 Report #: [id number] glucose. IMAGING: CT abdomen and pelvis shows previous left nephrectomy and cystectomy, right ureteric diversion passing out a hernia in the lower right abdominal wall, multiple small bowel loops herniating into the pouch, large left-sided abdominal hernia with descending colon passing out of the structure with an ostomy here. Many of small bowel loops also large left-sided hernia, distal colon appears in place, but decompressed consistent with double osteotomy, left-sided. ASSESSMENT: Abdominal pain, urinary tract infection, colostomy, urostomy leukocytosis. PLAN: Admit to hospital, follow cultures. IV fluid rehydration, n.p.o. for time being with General Surgery consult working. Dr. Hernandez evaluating the patient. <ELECTRONICALLY SIGNED> By: Steven Rodriguez MD, MANOHARFP, FACEP 04/08/19 [id number] Steven Rodriguez MD, PATRICK, FACEP /nt
[2019-04-08 15:32] VITALS: BP 142/95
--- NOTE | 2019-04-08 16:18 | NUR ---
CLINICAL UPDATE SENT TO JIM THAKKAR CM TO FOLLOW INDICATED WITH DC PLANNING.
--- NOTE | 2019-04-08 17:00 | NUR ---
Received awake on bed. Due medications given as prescribed. A+Ox2-3. On room air. On clear liquid diet- informed and aware. With colostomy and urostomy in place- pt seen by ostomy nurse today, changed today- surgeon informed re: abscess on ostomy- Dr Hernandez aware. Diet shifted to regular diet- pt tolerating well; no nausea, no vomiting, no abdominal pain noted. Vital signs stable. With D50.45Ns+20meqs Kcl at 75cc/hr, infusing well at R wrist. Pt seen by Dr Rodriguez, for possible discharge tomorrow. Assisted in ADLs. On blood sugar monitoring- taken and recorded, no insulin coverage prescribed.
[2019-04-08 19:10] VITALS: BP 129/75
--- NOTE | 2019-04-09 05:02 | NUR ---
PT IS A/O X4.PT IS NON-AMBULATORY .PT IS MAX ASSIST.PT HAS COLOSTOMY AND UROSTOMY IN PLACE.PT IS ON REGULAR DIET.PT DENIES PAIN ,NAUSEA AND VOMITING.CONTINUE TO MONITOR
[2019-04-09 05:36] LABS: ABSOLUTE NEUTROPHILS 3.7 thou/uL (1.4-8.2); BASOPHILS 0.8 % (0.0-2.0); EOSINOPHILS 3.2 % (0.0-3.0); HEMATOCRIT 39.9 % (37.0-47.0); HEMOGLOBIN 13.2 gm/dL (12.0-15.0); LYMPHOCYTES 22.4 % (24.0-44.0); MCH 28.5 pg (26.0-34.0); MCHC 33.1 g/dL (28.0-37.0); MCV 86.1 fL (80.0-100.0); PLATELET COUNT 93 thou/uL (150-400); POLYS 62.6 % (36.0-66.0); RBC 4.64 mil/uL (4.20-5.00); RDW 14.3 % (10.5-14.5); WBC 5.8 thou/uL (4.0-11.0)
[2019-04-09 05:45] LABS: CALCIUM 8.5 mg/dL (8.5-10.1)
[2019-04-09 08:10] VITALS: BP 126/76
--- NOTE | 2019-04-09 13:22 | NUR ---
PHYSICIAN INDIATED THAT PT IT TO TRANSITION TO PO ABX AND THEN DISCHARGE BACK TO HER RETIREMENT [facility] TOMORROW. CM TO CALL SARTHAK AND NOTIFY HER OF PT'S ANTICIAPTED RETURN.
[2019-04-09] MEDS ORDERED: CIPROFLOXACIN500 M1 PO (17:51)
[2019-04-09 19:01] VITALS: BP 106/61
--- NOTE | 2019-04-09 21:05 | NUR ---
ASSUMED CARE 0700. ALERT X3, FROM [facility]. DR AGGARWAL DC AFTER 6PM. UNABLE TO REACH FACILITY. NOTIFIED PT SHE WILL DC IN [place].
--- NOTE | 2019-04-10 04:23 | NUR ---
Pt. rested quietly during the night when checked on during frequent rounds. She offers no c/o pain or nausea. Bed alarm is on.
[2019-04-10 08:00] VITALS: BP 130/63
--- NOTE | 2019-04-10 09:58 | NUR ---
Following for d/c planning needs. SPoke with Emilia at [facility]. She does not want home health for pt and will notify physician.
[2019-04-10 10:02] VITALS: BP 130/63
--- NOTE | 2019-04-10 10:12 | NUR ---
DISCHARGE ORDERS COMPLETED PER ATTENDING. CALL PLACED TO ALAINA, PATIENTS ORAL AND MAXILLOFACIAL SURGERY AND DIRECTOR OVER [facility] WHERE PATIENT RESIDES. ALAINA TO PROVIDE TRANSPORTATION FOR PATIENT THIS AFTERNOON AND WILL RAILWAY TRACK WORKER PATIENTS DISCHARGE PAPERWORK AT THAT TIME. UNIT SW NOTIFIED. RAILROAD POLICE OFFICER NOTIFIED AND WILL NOTIFY UNIT RN.
--- NOTE | 2019-04-10 11:19 | NUR ---
WOUND CONSULT; THE PATIENT HAS A RESOLVING PRESSURE INJURY TO THE LEFT ISCHIAL TUBEROSITY MEASURES 1 X 1 X 1 CM WITH EPIBOLE TO THE MARGINGINS, THE WOUND IS FRIABLE. RECOMMENDATION; APPLIED AQUACEL AG, COVERED WITH A FOAM DRESSING FOR NOW. DISCUSSED WITH JUAN MIGUEL
--- NOTE | 2019-04-10 12:03 | NUR ---
OSTOMY CARE NOTE; pt being dc today to residential, changed urostomy pouch w/ jocelyne convex 1 06/24' w/ adapt ring under wafer, peristomal skin intact, clear light yellow urine noted, connected to dep drainage, urostomy stoma red viable flat w/ skin surface, new pouch to colostomy stoma, stoma flat w/ skin surface, granulomas present less bleeding, treated w/ silver nitrate, new pouch jocelyne 2 piece system applied w/ adapt ring, soft brown stool noted, spoke w/ caregiver Emilia, due to granulomas pt has seen surgeon in past to have areas caterized, Emilia states she will f/u w/ surgeon at dc, supplies at bs but states pt has plenty of supplies at home, info given of this wocn to call if issues arise, verbal understanding 100%
[2019-04-10 12:17] VITALS: BP 130/63
[2019-04-10 13:32] VITALS: BP 130/63
[2019-04-10 15:00] VITALS: BP 126/76
--- NOTE | 2019-04-10 18:25 | NUR ---
QUIET UNEVENTFUL DAY. VERY PLEASANT AND COOPERATIVE. DENIED PAIN. URINE CLEAR/YELLOW. GOOD URINE OUTPUT. DISCHARGED AT 1725, ACCOMPANIED BY ALAINA. ESCORTED TO CAR BY THIS RN. WOUND CARE VISITED. EXPLAINED WOUND CARE ORDERS TO ALAINA.
--- NOTE | 2019-04-12 11:42 | HC ---
[facility] [place] [address] CONSULTATION Name: AUDRA HARRIS ODILIA Room #: 457-P [facility] IN M.R.#: [id number] Admission: 04/06/19 Attend Phys: Steven Rodriguez MD[facility] Dis[facility]: 04/10/19 Date of : 64 Report #: [id number] THIS REPORT FOR: //name// CC: Steven Rodriguez DATE OF SERVICE: 04/10/2019 CHIEF COMPLAINT: Pressure ulcerations. HISTORY OF PRESENT ILLNESS: This is a 58-year-old female patient with whom I am familiar, who previously had a left ischial pressure ulcer stage 4. She underwent flap closure. She has been admitted to the hospital with right-sided abdominal pain. She has a few pressure ulcerations and I have been asked to see her in this regard. PAST MEDICAL HISTORY: Positive for previous left ischial pressure ulcer, status post flap closure, history of urinary tract infections. She is status post urostomy and colostomy placement. She lives in a fpc type setting. MEDICATIONS: At this time include Tylenol, Mag-Al Plus, Cipro, famotidine, furosemide, nystatin and potassium. ALLERGIES: ADHESIVE TAPE. SOCIAL HISTORY: Negative for alcohol or tobacco use. FAMILY HISTORY: Noncontributory. REVIEW OF SYSTEMS: CONSTITUTIONAL: The patient denies fever, chills or weight loss. NEUROLOGICAL: Denies currently any new focal weakness, numbness, tingling. She has a history of paraplegia due to spina bifida. ENT: The patient denies earache, nasal drainage, sore throat. CARDIOVASCULAR: The patient denies chest pain or palpitations or diaphoresis. PULMONARY: The patient denies cough or shortness of breath. GASTROINTESTINAL: The patient denies nausea, vomiting, diarrhea or abdominal pain. ORTHOPEDIC: The patient denies pain, swelling, or limitation of lower extremities. Other systems in a 14-point review of systems are negative. PHYSICAL EXAMINATION: VITAL SIGNS: Include temperature 36.3, pulse 72, respiratory rate 20 and blood pressure 130/63. GENERAL: This is a somewhat chronically ill-appearing female patient who appears to be in minimal distress. [address] [address] CONSULTATION Name: AUDRA HARRIS ODILIA Room #: 457-P [facility] IN M.R.#: [id number] Admission: 04/06/19 Attend Phys: Steven Rodriguez MD, FAAF Discharge: 04/10/19 Date of : 64 Report #: [id number] HEENT: Head is normocephalic. Nose and throat clear. NECK: Supple. LUNGS: Clear. ABDOMEN: Soft. Bowel sounds are present. Urostomy, colostomy noted appeared to be functioning well. Pelvic region demonstrates what appears to be a small stage 3 ulceration along the portion of the incision line of the previous flap closure remains relatively superficial is clean and granulating. She has a stage 2 pressure ulcer to her right heel. Obviously is being remain superficial. NEUROLOGIC: The patient is alert. She is paraplegic. LABORATORY DATA: White blood cell count 5.8 with a hemoglobin 13.2, hematocrit of 39.9, platelet count 93,000. Sodium is 139, potassium 4.0, chloride 108, CO2 of 21, BUN 14, creatinine 1.0, glucose 97, calcium is 8.5. CLINICAL IMPRESSION: 1. Stage 3 pressure ulcer of the left ischial region, status post previous flap closure in that location and stage 2 pressure ulcer to the right heel. 2. Paraplegia secondary to spina bifida. 3. Urinary tract infection, status post urostomy and colostomy. RECOMMENDATIONS: At this point in time, she will need a low air loss mattress with q.2 hour turning and repositioning. We will recommend a silver alginate and bordered foam to the right ischial region and bordered foam to the right heel. PRAFO boots while in bed. Good nutritional support will be appropriate. I appreciate being asked to see her in consultation. <ELECTRONICALLY SIGNED> By: Maurice Burnette MD 04/12/19 1142 [id number] Maurice Burnette MD /nt
--- NOTE | 2019-04-13 10:14 | HC ---
[facility] [place] [address] CONSULTATION Name: AUDRA HARRIS ODILIA Room #: 457-P [facility] IN M.R.#: [id number] Admission: 04/06/19 Attend Phys: Steven [facility], [facility] Dis[facility]: 04/10/19 Date of : 64 Report #: [id number] THIS REPORT FOR: //name// CC: Steven Rodriguez DATE OF SERVICE: 04/06/2019 CONSULTING PHYSICIAN: Dr. Hernandez. REASON FOR CONSULTATION: Parastomal hernia. IMPRESSION: 1. Right ileal conduit parastomal hernia. 2. Left colostomy parastomal hernia. 3. Abdominal pain. RECOMMENDATIONS: 1. Thank you for the consultation. I will follow along. 2. The patient has chronic parastomal hernias. There are no concerning features regarding them currently. However, she is having some nausea and vomiting. Therefore, I do recommend admission for observation and possibly a small bowel follow through. 3. Serial abdominal exams. 4. The patient is a poor surgical candidate. We will attempt medical management. 5. Recommend trending CMP and lipase. The patient did have what looked to me to be a very dilated common bile duct on the CT scan; however, there are no concerns regarding this on the radiology report. HISTORY OF PRESENT ILLNESS: The patient is a very pleasant 58-year-old female with many medical comorbidities, who presented to the ER with chills and abdominal pain. Pain began a few days ago. She developed nausea few days ago. She started vomiting and has vomited this morning. She is continuing to have flatus and stool in her colostomy. She reports that while in the ER her pain is currently better. PAST MEDICAL HISTORY: 1. Colostomy. 2. History of GI bleed. 3. Epilepsy/seizures. 4. Spina bifida. 5. Hydrocephalus. 6. Hepatitis C. 7. Mental delay. 8. Anemia. 9. Mood disorder. [facility] [address] [place] [address] CONSULTATION Name: AUDRA HARRIS Room #: 457-P [facility] IN M.R.#: [id number] Admission: 04/06/19 Attend Phys: Steven Rodriguez MD, FAAF Discharge: 04/10/19 Date of : 64 Report #: [id number] 10. Hyperlipidemia. 11. Eczema. 12. GERD. 13. Asthma. 14. History of MRSA. 15. Ileal conduit. 16. Unilateral nephrectomy. 17. Diabetes. 18. Parkinson's disease. PAST SURGICAL HISTORY: 1. Leg wound debridement. 2. Back surgery. 3. Colostomy. 4. Unilateral nephrectomy. 5. Cystectomy. 6. Ileal conduit. 7. Colostomy. SOCIAL HISTORY: She Lives in a [place] unit. Denies the use of alcohol, tobacco or recreational drugs. FAMILY HISTORY: Denies coagulopathy. REVIEW OF SYSTEMS: CONSTITUTIONAL: No fever. No chills. HEENT: Denies blurring of vision, double vision, headaches, hearing loss, sinus drainage or sore throat. Denies blurring of vision, double vision, headaches, hearing loss, sinus drainage or sore throat. CARDIOVASCULAR: Denies chest pain, palpitations, orthopnea or paroxysmal nocturnal dyspnea. RESPIRATORY: Denies cough, wheezing, hemoptysis, or shortness of air. GASTROINTESTINAL: See above and below. GENITOURINARY: Denies dysuria or hematuria or kidney stones. No urinary frequency, urgency or incontinence. Denies dysuria or hematuria or kidney stones. No urinary frequency, urgency or incontinence. MUSCULOSKELETAL: No joint pain. No muscle pain. NEUROLOGICAL: Denies tremor, stroke or seizure. Denies tremor, stroke or seizure. HEMATOLOGIC / LYMPHATICS: Denies easy bruising, easy bleeding or enlarged lymph nodes. SKIN: No rash or ulceration. ENDOCRINE: No heat or cold intolerance PSYCHIATRIC: Denies depression, anxiety, or schizophrenia. PHYSICAL EXAMINATION: [facility] [address] [place] [address] CONSULTATION Name: AUDRA HARRIS [facility] Room #: 457-P [facility] IN M.R.#: [id number] Admission: 04/06/19 Attend Phys: Steven Rodriguez MD, FAAF Discharge: 04/10/19 Date of : 64 Report #: [id number] VITAL SIGNS: Temperature 37.1, pulse 90, respiratory rate 25, blood pressure 107/50, pulse ox 95%. GENERAL: No apparent distress, alert and oriented. HEENT: Intact. NCAT, EOMI. NECK: Soft, normal range of motion. PULMONARY: Nonlabored breathing, equal excursion bilaterally. CARDIOVASCULAR: Regular rate and rhythm, hemodynamically stable. ABDOMEN: Soft, nontender, morbidly obese. No guarding, rebound or rigidity. Hernias are difficult to appreciate given her size. She does have a right-sided urostomy and a left-sided colostomy. She has a right transverse incision in the right upper quadrant and mini midline incision. EXTREMITIES: No clubbing, cyanosis or edema. PSYCHIATRIC: Normal mood and affect. NEUROLOGIC: Grossly intact. Cranial nerves 2-12 grossly intact. MUSCULOSKELETAL: 5/5 strength in upper extremities and lower extremities bilaterally. PSYCHIATRIC: Normal mood and affect. LABORATORY DATA: 1. White blood count 12.5, hemoglobin 14.1, hematocrit 42.5, platelets 139. 2. Sodium 139, potassium 3.9, creatinine 1.3, lactic acid 1.4, total bilirubin 0.6, AST 67, ALT 32, alkaline phosphatase 132, lipase 656. IMAGING: CT of the abdomen and pelvis. IMPRESSION: 1. CT study of the abdomen and pelvis demonstrates previous left nephrectomy and cystectomy. There is a right ureteric diversion passing out through a hernia into the lower right abdominal wall. I am not certain if there is an ileal diversion or not. There are multiple small bowel loops herniating out into this pouch. 2. The patient also has a large left-sided abdominal hernia with the descending colon passing out into this structure. There is an ostomy here. Many of the small bowel loops also fill this larger left-sided hernia. 3. The distal colon appears in place, but decompressed. PLAN: I suspect there is a double ostomy, left-sided colostomy present. <ELECTRONICALLY SIGNED> By: David Hernandez MD 04/13/19 [id number] David Hernandez MD /nt
== END 2019-04-10 18:20 | disposition home or self-care (01) | DRG 394 ==
LOC: ER 08:08 → EROBS 15:59 → 4W 15:59
PROVIDERS: Emergency Medicine; ADMIT Family Medicine
DX: K43.5 Parastomal hernia without obstruction or gangrene (principal); N39.0 Urinary tract infection, site not specified; G82.20 Paraplegia, unspecified; G40.909 Epilepsy, unspecified, not intractable, without status epilepticus; E78.5 Hyperlipidemia, unspecified; K21.9 Gastro-esophageal reflux disease without esophagitis; E11.9 Type 2 diabetes mellitus without complications; G20 Parkinson's disease; L89.322 Pressure ulcer of left buttock, stage 2; A49.9 Bacterial infection, unspecified; L89.612 Pressure ulcer of right heel, stage 2; D72.829 Elevated white blood cell count, unspecified; Z93.3 Colostomy status; Z93.2 Ileostomy status; Z86.14 Personal history of Methicillin resistant Staphylococcus aureus infection; Z90.710 Acquired absence of both cervix and uterus; Z90.5 Acquired absence of kidney; Q05.9 Spina bifida, unspecified
CPT/HCPCS: 10040

== ENCOUNTER → 2019-06-11 | Outpatient (CLI) | payer OTHER ==
[~2019-06-11] MED LIST changes: +COMTAN200 MG PO; +MECLIZINE HCL25 M1 PO; +NORVASC5 MG PO; +NYSTATIN 100,0015 G1 TOP
== END ==
LOC: BC 08:50
DX: Z12.31 Encounter for screening mammogram for malignant neoplasm of breast (principal)

== ENCOUNTER 2020-06-02 11:00 | Inpatient (IN) | payer OTHER ==
[~2020-06-02] VITALS: Ht 167.6 cm; Wt 81.6 kg
--- NOTE | ~2020-06-02 | H ---
[facility] [place] [address] HISTORY AND PHYSICAL Name: AUDRA HARRIS Room #: 170-5 ADM IN M.R.#: [id number] Admission: 06/02/20 Attend Phys: Steven Rodriguez MD, FAAF Discharge: Date of : 64 Report #: [id number] THIS REPORT FOR: cc: Steven Rodriguez MD FAAFP FACEP Steven Rodriguez MD FAAFP FACEP Steven Rodriguez MD FAA FACEP ~ DATE OF SERVICE: 06/02/2020 CHIEF COMPLAINT: Right leg wound. HISTORY OF PRESENT ILLNESS: The patient is a 60-year-old white female well known to me. Resident of [facility]. She has a chronic wound on the posterior aspect of her right calf and saw [facility] physician, Dr. Lopez today who recommended that she be admitted and undergo surgical debridement of her wound present for several months. PAST MEDICAL HISTORY: Colostomy, urostomy, GI bleed, epilepsy/seizures, spina bifida, hydrocephalus, mild mental delay, hepatitis C, anemia, mood disorder, hyperlipidemia, eczema, GERD, asthma, MRSA in sputum 2004, left chest wound in 2006, single kidney following nephrectomy, hysterectomy for uterine tumor. Multiple hernia surgeries, polyps removed from colostomy stoma, diabetes, Parkinson's disease. MEDICATIONS: Carbidopa/levodopa, entacapone, (Stalevo) 200 mg tablets 1 p.o. t.i.d., Maalox, famotidine 20 mg daily, Abreva topically 5 times daily as needed, Antivert 25 mg p.o. t.i.d., dizziness, nystatin powder to affected skin twice daily, Lasix 20 mg 1 p.o. daily as needed for fluid retention, Ferrex 150 mg 1 p.o. daily, vitamin C 500 mg 1 p.o. b.i.d., Delsym 10 mL p.o. daily p.r.n. cough, amlodipine, Norvasc 5 mg p.o. daily, Comtan (entacapone) 200 mg p.o. t.i.d., imipramine hydrochloride 3 tabs p.o. at bedtime, vitamin D 50,000 International as p.o. weekly on Saturday, diphenhydramine 25 mg 1 p.o. q. 6 hours p.r.n., itch, Tylenol 500 mg 2 p.o. q. 4 hours p.r.n. pain, Minerin cream to affected skin daily as needed, zinc sulfate 220 mg p.o. at bedtime, multivitamin with iron 1 p.o. at bedtime, Abilify 15 mg 1 p.o. at bedtime. ALLERGIES: ADHESIVE TAPE. SOCIAL HISTORY: nursing home resident. Nondrinker, nonsmoker. FAMILY HISTORY: Noncontributory. REVIEW OF SYSTEMS: Positive for granulation tissue around her stoma and posterior right lower leg wound. No cough, shortness of breath. No chest pain. GASTROINTESTINAL: No abdominal pain. GENITOURINARY: No problems urinating. She has a colostomy and urostomy. [address] [address] HISTORY AND PHYSICAL Name: AUDRA HARRIS Room #: 170-5 [facility] IN ..#: [id number] Admission: 06/02/20 Attend Phys: Steven Rodriguez MD, FAAF Discharge: Date of : 64 Report #: [id number] Remainder of system review is negative. OBJECTIVE: VITAL SIGNS: Temperature is 36.4, pulse 82, respirations 14, blood pressure 117/78, pulse oximetry on room air is 100%. She weighs 81.65 kilograms or 180 pounds. GENERAL: She is in no acute distress. HEENT: Pupils equal, round, and reactive to light and accommodation. Extraocular muscles intact. Pharynx unremarkable. NECK: Supple. COR: S1, S2. CHEST: Clear. ABDOMEN: Soft, nontender. She has urostomy and colostomy. EXTREMITIES: She has a large 10 cm round right lower leg wound with an eschar and granulation tissue in the posterior aspect of her right lower leg. She has the urine collection bag attached to her urostomy. NEUROLOGIC: She is intact without focal deficit. LABORATORY EVALUATION: CBC: White count 5.1, hemoglobin 11.3, hematocrit 35.0, platelets 244,000. Serum chemistry: Sodium 140, potassium 3.4, chloride 108, CO2 of 25, BUN 19, creatinine 1.3, estimated glomerular filtration rate is 42, glucose 87. Lactate 1.6, calcium is 8.9, total bilirubin 0.3, AST 41, ALT 13, alkaline phosphatase 155. Total protein 6.3, albumin 2.3. IMAGING: CT scan of pelvis with contrast, large soft tissue defect, medial left gluteal tissues with some thickening and open ___ ischial tuberosity, osseous erosion and destruction is close to the ischial tuberosity consistent with chronic osteomyelitis. No evidence of focal abscess with phlegmonous tissue noted along the wound tracked, wound 7 cm from the surface of the ischial tuberosity. ASSESSMENT: Chronic right leg wound decubitus ulcer, osteomyelitis, urostomy and ileostomy, mild mental delay. PLAN: Admit to hospital. Consult Dr. Hernandez, general surgeon for consideration for debridement of her wound as well as maintenance of her colostomy with revision of granulation tissue. By: [id number] Steven Rodriguez MD, FAAFP, FACEP /nt
[2020-06-02 11:04] VITALS: BP 117/78
[2020-06-02 13:35] LABS: ABSOLUTE NEUTROPHILS 3.5 thou/uL (1.4-8.2); BASOPHILS 1.2 % (0.0-2.0); EOSINOPHILS 0.7 % (0.0-3.0); HEMOGLOBIN 11.3 gm/dL (12.0-15.0); LYMPHOCYTES 21.3 % (24.0-44.0); MCH 26.6 pg (26.0-34.0); MCHC 32.4 g/dL (28.0-37.0); MCV 82.2 fL (80.0-100.0); MONOCYTES 7.4 % (1.0-8.0); PLATELET COUNT 244 thou/uL (150-400); POLYS 69.4 % (36.0-66.0); RBC 4.26 mil/uL (4.20-5.00); RDW 14.6 % (10.5-14.5); WBC 5.1 thou/uL (4.0-11.0)
[2020-06-02 13:47] LABS: CALCIUM 8.9 mg/dL (8.5-10.1); CREATININE 1.3 mg/dL (0.6-1.0); POTASSIUM 3.4 mmol/L (3.5-5.1)
[2020-06-02 13:53] LABS: ALBUMIN 2.3 g/dL (3.4-5.0); TOTAL BILIRUBIN 0.3 mg/dL (0.2-1.0); TOTAL PROTEIN 6.9 g/dL (6.4-8.2)
--- NOTE | 2020-06-03 07:38 | NUR ---
PT BOARDED IN E.R. WAITING FOR MS BED. PLAN FOR TODAY TO GO TO OR FOR I/D OF LEFT GLUTEAL WOUND. CONSENT SIGNED AND ON CHART. PT RESTED WELL WITHOUT COMPLAINT. HELPS TO REPOSITION SELF WITH PROMPTING. ILEOCONDUIT/COLOSTOMY TO DD W/ ADEQUATE OUTPUT. VSS. REPORT GIVEN TO ONCOMING RN.
[2020-06-03 09:35] VITALS: BP 134/68
[2020-06-03 09:51] VITALS: BP 146/75
[2020-06-03 13:00] VITALS: BP 144/75
--- NOTE | 2020-06-03 15:52 | NUR ---
ASSESSMENT: CM REVIEWED CHART AND SPOKE WITH PT. PT IS FROM [facility]. PTS CAREGIVER MARSHA HELPS CARE FOR HER WOUND AT THE FACILITY FOR ABOUT 25 YEARS. PT WAS ADMITTED DUE TO CHRONIC RIGHT LEG WOUND AND HAD DEBRIDEMENT, BONE BX. PT USES A ROLLATOR WALKER FOR AMBULATION. CM ATTEMPTED TO REACH PATIENTS BROTHER/DPOA DEMIAN BUT UNABLE TO REACH AT THIS TIME. PT REPORTS SHE HAD BEEN TO [facility] IN THE PAST BUT DID NOT REALLY LIKE IT THERE. PT IS CURRENTLY ON IV ANBX. CM SPOKE WITH SARTHAK TO DISCUSS AND SHE IS HOPEFUL SHE MAY BE ABLE TO COME BACK TO [facility] PENDING WHAT WILL NEED TO BE DONE FOR WOUNDCARE. CM WILL CONTINUE TO FOLLOW TO ASSIST NEEDED.
[2020-06-03 16:00] VITALS: BP 143/77
--- NOTE | 2020-06-03 17:08 | NUR ---
Admitted pt. to the floor from surgery at 1300. Pt. was calm and cooperative. Pt. does not complain of pain. Fall precautions in place.
[2020-06-03 18:58] VITALS: BP 111/55
--- NOTE | 2020-06-04 02:10 | NUR ---
ASSUMED PT CARE AT AROUND 1915 HRS. 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 S/P I/D OF LEFT BUTTOCK WOUND WITH WOUND VAC IN PLACE AT 125MMHG, R CALF WOUND WITH DRSG INTACT. SCD TO LLE.Q2HR TURNS PROVIDED. PT DENIES PAIN.UROSTOMY WITH DARK YELLOW URINE-SOME SEDIMENTS NOTED. COLOSTOMY INTACT WITH DARK GREEN OUTPUT,IV VANCOMYCIN GIVEN. PATIENT STABLE ON ROOM AIR, DENIES COUGH OR SOA.CALL LIGHT WITHIN REACH. WILL CONTINUE WITH POC TILL EOS.
[2020-06-04 04:16] VITALS: BP 98/51
[2020-06-04 06:55] VITALS: BP 129/69
--- NOTE | 2020-06-04 09:41 | NUR ---
Assumed care of pt. at 0700. Pt. calm and cooperative, no medications from [facility] had been reordered. Attempted to contact Dr. Rodriguez through answering service, no call back received. Dr. Crowder ordered the Carbidopa/Levidopa medication be started again. Fall precautions in place.
[2020-06-04 19:15] VITALS: BP 130/75
[2020-06-05 02:45] VITALS: BP 137/75
--- NOTE | 2020-06-05 04:05 | NUR ---
PATIENT ALERT AND ORIENTED X4. COOPERATIVE WITH CARE. REMAINS ON BEDREST. DENIES PAIN. VANCO TROUGH 29 AT 0100. PHARMACIST - PACO STATED TO HOLD THIS DOSE AND THAT SHE WOULD PUT THE MEDICATION ON HOLD FROM HER END. VANCOMYCIN WAS HELD BY THIS NURSE. COLOSTOMY IN TACT. UROSTOMY WITH YELLOW URINE TO D/D. RESTING QUIETLY, WILL MONITOR.
[2020-06-05 07:30] VITALS: BP 142/88
[2020-06-05 16:11] VITALS: BP 121/60
--- NOTE | 2020-06-05 17:16 | NUR ---
PT ASSESSED AT START OF SHIFT. NO C/O PAIN. LT BUTTOCK WOUND VAC TO SUCTION. TURNED Q2HRS. LARGE AMT FORMED STOOL IN COLOSTOMY. CLOUDY URINE IN UROSTOMY. EATING AND DRINKING WELL. VANCO LEVEL HIGH SO DOSE HELD PER PHARMACY AND LEVEL WILL BE RECHECKIED IN AM.
[2020-06-05 19:05] VITALS: BP 141/82
--- NOTE | 2020-06-06 02:38 | NUR ---
ASSESSED AT START OF SHIFT. PT A&OX4. DENIES PAIN. WOUND VAC INTACT AND DRAINING IN LEFT BUTTOCK. LEFT FOOT DRESSING C/D/I. BSG CHECKED NO COVERAGE. COLOSTOMY BAG EMPTIED DARK BROWN FORMED STOOL NOTOOL. UROSTOMY IN PLACE AND CONNECTED TO A DRAINAGE BAG. PT REPOSITIONED FOR COMFORT. FALL PREC IN PLACE AND CALL LIGHT IN PLACE. WILL CONT TO MONITOR.
[2020-06-06 04:48] VITALS: BP 124/56
[2020-06-06 05:56] LABS: CREATININE 1.3 mg/dL (0.6-1.0)
[2020-06-06 08:41] VITALS: BP 117/65
--- NOTE | 2020-06-06 11:38 | NUR ---
WOUND CARE CONSULT; I WAS CONSULTED TO APPLY THE WOUND VAC TODAY. THE WOUND IS APPROX. 2.5 X 2.5 X 0.5 UNDERMINING 12-12:00. BONE IS PRESENT. NO WOUND ODOR. THE PATIENT WAS SEEN BY EMILY URENA. RECOMMENDATIONS; APPLY WOUND VAC. DISCUSSED WITH JUAN MIGUEL
[2020-06-06 16:54] VITALS: BP 137/71
--- NOTE | 2020-06-06 17:22 | NUR ---
Assumed care of pt. at 0700. Pt. was calm and cooperative. Pt. colostomy was leaking and was replaced. Wound vac and wound repacked by wound care team. IV was clotted off and replaced by IV team on Right forearm via ultra sound. No complaints of pain. Fall precautions in place.
--- NOTE | 2020-06-06 18:06 | PATH ---
[facility] [address] [place] [address] PATHOLOGY RPT PROCEDURE Name: AUDRA MORSE Room #: 434-P ADM IN M.R.#: [id number] Admission: 06/02/20 Date of : 64 Discharge: Report #: [id number] Path Case #: [id number] L[facility] Accession Number: [id number] . 01 Material submitted: . pelvis - LEFT ISCHIAL TUBEROSITY WOUND. Modifiers: left . 01 Clinical history: . OSTEOMYELITIS . 02 Diagnosis: Soft tissue, left ischial tuberosity wound, debridement: - Fibrovascular connective tissue with acute inflammation, granulation tissue, as well as fibrinoid degeneration, consistent with wound tissue. (IUV:splitting machine tender; 06/06/2020) [facility]BR 06/06/2020 1617 Local . 02 Electronically signed: . Dina Knox MD, Pathologist NPI- [id number] . 01 Gross description: . Received in formalin labeled "Audra Morse, left ischial tuberosity" is a fragment of jaimes-pink soft tissue measuring 1.2 x 0.8 x 0.6 cm. The specimen is bisected and submitted in A1. ([facility]; 06/05/2020) [facility] 06/05/2020 1104 Local . 02 Pathologist provided ICD-10: M79.9 . 02 CPT . 797128 Specimen Comment: A courtesy copy of this report has been sent to [phone], [phone] Specimen Comment: [phone] Specimen Comment: Report sent to / DR AGGARWAL Performed at: [address], [place] [id number] MD Tay Cardozo MD Phone: [phone] Performed at: [address] [id number] MD Dina Knox MD Phone: [phone]
[2020-06-06 19:10] VITALS: BP 131/77
--- NOTE | 2020-06-07 03:11 | NUR ---
ASSUMED CARE OF PT @21OO PT A7OX4 DENIES PAIN/NAUSEA FOR THIS NURSE. WOUND VAC INTACT AND DRAING. PT REPOSITIONED FOR COMFORT. BSG CHECKED NO COVERAGE NEEDED. NO FURTHER SIGNS OF DISTRESS WILL CONT TO MONITOR.
[2020-06-07 03:53] VITALS: BP 122/57
[2020-06-07 04:41] VITALS: BP 103/70
[2020-06-07 05:05] LABS: HEMOGLOBIN 10.5 gm/dL (12.0-15.0); MCH 27.5 pg (26.0-34.0); MCHC 32.7 g/dL (28.0-37.0); MCV 83.9 fL (80.0-100.0); RBC 3.82 mil/uL (4.20-5.00); RDW 15.2 % (10.5-14.5); WBC 6.9 thou/uL (4.0-11.0)
[2020-06-07 05:08] LABS: CALCIUM 8.2 mg/dL (8.5-10.1); CREATININE 1.2 mg/dL (0.6-1.0); POTASSIUM 3.8 mmol/L (3.5-5.1)
[2020-06-07 07:15] VITALS: BP 115/59
--- NOTE | 2020-06-07 10:38 | NUR ---
Assumed care of pt at 0700. Pt a&ox4. Denies pain. Wound vac in place. IV antibiotics infusing. Good appetite. Awaiting to hear from the doctor on when the patient will be ok to discharge and where. Call light within reach. Will continue to monitor.
[2020-06-07 15:30] VITALS: BP 111/49; BP 123/72
[2020-06-07 19:55] VITALS: BP 124/78
--- NOTE | 2020-06-08 04:46 | NUR ---
PROGRESS PT A/O X4, DENIES PAIN AT THIS TIME. LUNGS CLEAR ABDOMEN SOFT POSITIVE BS WITH UROSTOMY TO DEPENDENT DRAINAGE AND A COLOSTOMY. WOUND VAC TO SACRUM INTACT WITH SUCTION AT 125CM OF SUCTION . IV SL INTERMITTENT ANTIBIOTICS ORDERED.
[2020-06-08 07:30] VITALS: BP 130/55
--- NOTE | 2020-06-08 09:42 | NUR ---
ASSUMED CARE AT 0700. PT IS A&O X4. IV IS RIGHT AC AND IS INTACT AND SHOWS NO SIGNS OF REDNESS OR SWELLING. HEART AND LUNG SOUNDS ARE REGULAR. BSG IS WNL . SWELLING AT BOTH ANKLES. SCD HOSE ARE IN PLACE. DRESSING INTACT ON RIGHT CALF. PT HAS A SCAB AT LEFT CHEST. WOUND VAC TO SACRUM IS INTACT AND SUCTIONING AT 125 ML. PT DENIES SOA, N/V. PT ONLY FEELS SLIGHT OF PAIN WHEN SHE HAS BM BUT PT CURRENTLY DOES NOT HAVE BM. PT IS GETTING TURN Q2. PT HAS UROSTOMY WITH BURNS AND COLONSCOPY AND IS INTACT AND IN PLACE. PT HAS HERNIA ON ABD AND ABD IS ASSYMETRICAL. FALL PRECAUTION. CALL LIGHT WITIN REACH.
--- NOTE | 2020-06-08 11:05 | NUR ---
VAT SPOKE WITH PRIMARY RN TO CALL ATTENDING MD. . PT'S HISTORY SHOWS SHE HAS ONLY ONE KIDNEY. IF BUILDING CONSTRUCTION PROFESSOR ABX NEEDED TICC RECOMMENDED.
--- NOTE | 2020-06-08 14:57 | NUR ---
Case discussed with the care team. Attempting to clarify if pt will need home iv atb, ticc line, and home wound vac at sc. Awaiting imput from the attending. Message left for Emilia, at [facility] to touch base on HH f/u. Emilia had been doing her wound care; uncertain if she will be able to do home infusion for pt if needed. Pt anxious to "go home". Will follow.
[2020-06-08 16:57] VITALS: BP 136/71
[2020-06-08 19:22] VITALS: BP 133/71
--- NOTE | 2020-06-09 02:32 | NUR ---
ASSUMED PT CARE AT 1900.PT CALM AND COPERATIVE WITH CARE.PT REPOSITIONED WHILE IN BED.COLOSTOMY INTACT WITH SOFT FORMED BROWN STOOL NOTED IN THE BAG.UROSTOMY BAG TO DD WITH SEDIMENTS NOTED.PT HAS BRUISING AND MULTIPLE SMALL OPEN AREAS AROUND HER ABD AND CHEST.DRSG TO HER R GRIJALVA C/D/I.LOW AIR LOSS MATTRESS IN PLACE.NYSTATIN POWDER TO HER BREAST AND PANUS.PT SLEEPING ON HER BED AT THIS TIME.CALL LIGHT WITHIN REACH.
[2020-06-09 04:26] VITALS: BP 118/54
[2020-06-09 07:36] VITALS: BP 124/66
--- NOTE | 2020-06-09 10:16 | NUR ---
Assumed care of pt at 0700. Pt a&ox4. Denies pain. Dressings changed. IV antibiotics infusing. Possible D/c home after TICC line placement. Call light within reach. Fall precautions in place. Will continue to monitor.
--- NOTE | 2020-06-09 14:37 | NUR ---
DR AGGARWAL AWARE THAT TICC LINE WAS PLACED THIS AM BY IR. DE LEÓN HAS BEEN IN PT'S ROOM WAITING FOR DR CAMEJO ROUND. [facility] CAN ACCEPT PT ONCE DC ORDERS ARE WRITTEN & [facility] WILL PLAN TO DO TEACHING WITH SARTHAK ONCE DC ORDERS ARE WRITTEN.
--- NOTE | 2020-06-09 14:40 | NUR ---
[facility] KR=[phone] & FAX [phone], [facility] EN=[phone], FAX [phone].
[2020-06-09 15:00] VITALS: BP 124/68
[2020-06-09 18:47] VITALS: BP 129/62
--- NOTE | 2020-06-10 02:08 | NUR ---
PT DENIED PAIN SO FAR.REPOSITIONED WHILE IN BED.DRSG TO HER L BUTTOCK AND R GRIJALVA INTACT.COLOSTOMY BAG CHANGED AT THE START OF SHIFT,SOFT FORMED BROWN STOOL NOTED.UROSTOMY INTACT CONNECTED TO DD.PT IN GOOS SPIRIT LOOKING FORWARD TO DC.CALL LIGHT WITHIN REACH.
[2020-06-10 04:15] VITALS: BP 117/60
[2020-06-10 07:55] VITALS: BP 118/58
[2020-06-10 07:57] LABS: HEMATOCRIT 30.1 % (37.0-47.0); HEMOGLOBIN 9.8 gm/dL (12.0-15.0); MCH 26.9 pg (26.0-34.0); MCHC 32.6 g/dL (28.0-37.0); MCV 82.6 fL (80.0-100.0); RBC 3.65 mil/uL (4.20-5.00); RDW 15.3 % (10.5-14.5); WBC 5.6 thou/uL (4.0-11.0)
[2020-06-10 08:11] LABS: CALCIUM 8.6 mg/dL (8.5-10.1); CREATININE 1.1 mg/dL (0.6-1.0); POTASSIUM 3.6 mmol/L (3.5-5.1)
[2020-06-10 10:28] LABS: % SATURATION 17 % (20-39); IRON 32 ug/dL (50-170); TIBC 193 ug/dL (250-450)
[2020-06-10 16:27] VITALS: BP 132/59
[2020-06-10 16:55] VITALS: BP 133/61
[2020-06-10 19:14] VITALS: BP 129/56
--- NOTE | 2020-06-10 19:22 | NUR ---
ASSUMED CARE OF PATIENT AT 0715, PATIENT ALERT AND ORIENTED WITH MILD DELAY. PATIENT DENIES PAIN THIS SHIFT. PATIENT HAS LEFT BUTTOCK WOUND, RIGHT HEEL WOUND AND RIGHT GRIJALVA WOUND. WOUND CARE DONE TO RIGHT HEEL, ALSO WOUND CULTURE DONE. NEW CONSULT PER DR BROWN, DR GORDON IN REGARD TO ABX CHOICES, OK TO SEE TOMORROW. LEFT BUTTOCK DONE THIS AM BY RENATA/JUAN MIGUEL. KEEP HEELS OFF BED, NEED HEEL PROTECTORS, PILLOW USED TO KEEP HEELS OFF THE BED. NO ISSUES OR CONCERNS THIS SHIFT. PATIENT MOVED TO ROOM 458, REPORT GIVEN TO [facility]/RN.
--- NOTE | 2020-06-11 04:22 | NUR ---
ASSUMED CARE OF PT AT 1900. PT IS A/O X4 WITH SOME FORGETFULLNESS AND IS B.REST. PT IS ON ROOM AIR AND REMAINS MEDSURG STATUS WITH NO TELE. COLOSTOMY IN PLACE AND DRAINING DARK BROWN STOOL. UROSTOMY IN PLACE AND DRAINING YELLOW URINE. WOUND DRSGS REMAIN C/D/I. VSS. NO C/O PAIN OR DISCOMFORT THIS SHIFT. AIRLOSS MATTRESS PUMP IN USE. ORDERED PRAFO BOOTS AND WERE ABLE TO APPLY THOSE THIS AM. PT IS PROGRESSING TOWARDS PLAN OF CARE GOALS. FALL PRECAUTIONS IMPLEMENTED AND CALL LIGHT IS WITHIN REACH. WILL CONTINUE TO MONITOR.
[2020-06-11 04:46] LABS: ABSOLUTE NEUTROPHILS 4.3 thou/uL (1.4-8.2); EOSINOPHILS 4.4 % (0.0-3.0); HEMATOCRIT 29.6 % (37.0-47.0); HEMOGLOBIN 9.5 gm/dL (12.0-15.0); LYMPHOCYTES 17.4 % (24.0-44.0); MCH 26.8 pg (26.0-34.0); MCV 83.7 fL (80.0-100.0); MONOCYTES 10.1 % (1.0-8.0); PLATELET COUNT 164 thou/uL (150-400); POLYS 67.1 % (36.0-66.0); RBC 3.54 mil/uL (4.20-5.00); RDW 15.4 % (10.5-14.5); WBC 6.4 thou/uL (4.0-11.0)
[2020-06-11 04:49] LABS: ALBUMIN 1.8 g/dL (3.4-5.0); CALCIUM 8.4 mg/dL (8.5-10.1); CREATININE 1.2 mg/dL (0.6-1.0); POTASSIUM 3.5 mmol/L (3.5-5.1); TOTAL BILIRUBIN 0.3 mg/dL (0.2-1.0); TOTAL PROTEIN 6.1 g/dL (6.4-8.2)
[2020-06-11 08:39] VITALS: BP 109/60
[2020-06-11 16:00] VITALS: BP 137/69
--- NOTE | 2020-06-11 17:05 | NUR ---
Assumed care of pt. at 0700. Pt. was calm and cooperative as always. Noted stomach looked more swollen and gas-filled than normal. Both wound dressings changed. Indegestion prn medication given, relief felt by pt., but stomach still bloated. Also noted slight amount of feces had exited anus as well. Colostomy bag appeared to be gas-filled as well. Fall precautions in place.
[2020-06-11 19:42] VITALS: BP 125/52
--- NOTE | 2020-06-12 02:41 | NUR ---
PT CARE ASSUMED WITH PT IN BED .PT IS A/O X4.PT IS ON BEDREST AND Q2H AND PT CAN TURN SELF ON REMINDER REPOSITION.PT HAS A UROSTOMY AND COLOSTOMY BAGS IN PLACE.PT IV ON RT CHEST PORT CATH SL.PT IS ON RA.WILL CONTINUE TO MONITOR POC
[2020-06-12 03:51] VITALS: BP 131/75
[2020-06-12 07:47] VITALS: BP 130/65
--- NOTE | 2020-06-12 10:55 | NUR ---
ASSUMED CARE AT 0700. PT IS A&O X4. PT HAS WOUND ON BUTTOCK. DRESSING IS INTACT AND SHOWS NO DRAINAGE. WOUND ON RIGHT FOOT. NO SIGNS OF DRAINAGE. DRESSING IS INTACT. ILESTOMY BAG IS INTACT AND URINE IS DARK YELLOW. RA. FOOT PREOTECTOR IS ON BOTH OF FEET. PT IS TURN EVERY 2 HOURS. LATEX ALLERGY PAPER IS IN FRONT OF ROOM. PT FEELS WEAK BUT DENIES PAIN AND N/V, FALL PRECAUTION. CALL LIGHT WITHIN REACH.
--- NOTE | 2020-06-12 19:01 | HC ---
[facility] [place] [address] CONSULTATION Name: AUDRA HARRIS Room #: 458-P ADM IN M.R.#: [id number] Admission: 06/02/20 Attend Phys: Steven Rodriguez MD, FAA Discharge: Date of : 64 Report #: [id number] THIS REPORT FOR: cc: Steven Rodriguez MD [facility] F[facility] Steven Rodirguez MD [facility] Dereck Alva MD ~ INFECTIOUS DISEASES CONSULTATION REASON FOR CONSULTATION: I was asked to evaluate concerning left ischial wound and osteomyelitis. HISTORY OF PRESENT ILLNESS: The patient is a 60-year-old, known to me from her previous hospitalizations where over the last several years, she has been treated for a nonhealing wound to the left ischium. She underwent extensive surgical debridement followed by attempts at closure. I do not recall her being evaluated by Plastic Surgery for closure however. The patient was unable to confirm this either. She presents now with increased wound to the left ischium with drainage. This occurred about a month or two ago. Has some pain with this. No fever, chills, or sweats. Being followed by Wound Care Service and hospitalized for further intervention. She had been on doxycycline. On 06/03/2020, she underwent further surgical debridement by Dr. Hernandez. Cultures revealed corynebacterium. She was also treated with vancomycin and ciprofloxacin during her hospitalization here. Yesterday, she had a culture of her right heel, which is so far growing Pseudomonas. Overall, the patient feels well. She has a diverting colostomy and an ileal conduit for urinary diversion. She has underlying spina bifida. She has epilepsy and mild mental delay. REVIEW OF SYSTEMS: A 14-point review of system was negative other than what has been described above. PAST MEDICAL HISTORY: Colostomy, GI bleed, epilepsy, spina bifida, hydrocephalus, mild mental delay, hepatitis C, anemia, mood disorder, hyperlipidemia, eczema, gastroesophageal reflux, asthma, urostomy with unilateral kidney following resection of her kidney and bladder, hysterectomy, multiple peristomal incisional hernias repaired, diabetes, Parkinson's. MEDICATIONS: As noted on her AUG, currently on vancomycin. ALLERGIES: ADHESIVE TAPE. FAMILY HISTORY: Noncontributory. SOCIAL HISTORY: Nonsmoker, no significant alcohol intake. Lives in a jail and is well cared for. PHYSICAL EXAMINATION: [facility] [address] [place] [address] CONSULTATION Name: AUDRA HARRIS Room #: 458-P [facility] IN .R.#: [id number] Admission: 06/02/20 Attend Phys: Steven Rodriguez MD, FAAF Discharge: Date of : 64 Report #: [id number] VITAL SIGNS: Afebrile and hemodynamically stable. GENERAL: She is alert and cooperative and pleasant, in no acute distress. Obese. EYES: Without scleral icterus. MOUTH: Without mucositis. NECK: Supple. LUNGS: Clear. HEART: Regular, without murmur, gallop, or rub. ABDOMEN: Obese, soft and nontender with left lower quadrant diverting colostomy and right lower quadrant ileal conduit. EXTREMITIES: Left ischial wound with clean base and palpable bone. Right heel wound was dressed and dry. NEUROLOGICAL: She was paraparetic from her spina bifida. LABORATORY STUDIES: Reviewed. MICROBIOLOGY: Reviewed. IMAGING STUDIES: CT scan of the pelvis and abdomen reviewed. IMPRESSION: A 60-year-old with spina bifida and nonhealing wound to the left ischium. This was the same area that we dealt with several years ago. She has chronic osteomyelitis in the region. She has growth of Corynebacterium striatum. This organism is typically sensitive to vancomycin. RECOMMENDATIONS: I agree with current choice of antibiotic therapy. We would recommend Plastic Surgery evaluation for myocutaneous flap coverage and ostectomy. Treat pseudomonas to the heel topically at this point with offloading. We will discuss further with wound care team first of the week. The patient does have a PICC in the right chest, which will be used for antibiotic therapy with vancomycin. We will follow laboratory studies weekly. Continue local wound care. Hopefully, we can arrange for Plastic Surgery evaluation. <ELECTRONICALLY SIGNED> By: Dereck Alva MD 06/12/20 1901 [id number] 0022 Dereck Alva MD /nt
[2020-06-12 19:35] VITALS: BP 119/64
--- NOTE | 2020-06-13 02:40 | NUR ---
PT CARE ASSUMED WITH PT IN BED .PT IS A/O X4.PT IS ABLE TO HELP TURN SELF IN BED AND IS Q2 TURN.PT DENIED PAIN.PT HAS A COLOSTOMY AND A UROSTOMY ALL DRAINING AND GOOD OUTPUT.IV ACCESS ON RT CHEST CENTRAL LINE.WILL CONTINUE TO MONITOR
[2020-06-13 04:18] VITALS: BP 130/65
[2020-06-13 07:35] VITALS: BP 127/60
--- NOTE | 2020-06-13 16:00 | NUR ---
REFERRALS HAVE BEEN SENT FOR HOME INFUSION AND HH. AWAITING INDICATION FROM PHYSICIAN TO WHEN PT IS SAFE TO RETURN TO HER SENIOR LIVING WITH THESE SERVICES. [facility] SP=[phone] & FAX [phone], [facility] ZK=[phone], FAX [phone].
[2020-06-13 19:10] VITALS: BP 129/64
--- NOTE | 2020-06-13 20:04 | NUR ---
Assumed care of pt. at 0700. Pt. was calm and cooperative. Pt. had small BM in colostomy and out of anus. Dr. Crowder informed, said it was normal and okay. Pt. does not complain of pain. Fall precautions in place.
[2020-06-14 05:05] VITALS: BP 136/74
[2020-06-14 08:08] VITALS: BP 116/53
--- NOTE | 2020-06-14 10:54 | NUR ---
OSTOMY CARE; PT WELL KNOWN TO THIS WOC NURSE FROM PREVIOUS HOSP STAY, UROSTOMY POUCH LOOSE, CHANGED USING JOANNA CONVEX 06/24' POUCH, CONNECTED TO DEP DRAINAGE. STOMA PINKISH RED VIABLE FLAT W/ SKIN SURFACE, PERISTOMAL SKIN INTACT,URINE YELLOW, CLEAR, COLOSTOMY POUCH EDGES LOOSE, SEVERAL AREAS EDGE STOMA GRANULOMAS HYPER GRANULATION TISSUE BLEEDING, SILVER NITRATE APPLIED TO AREAS BLEEDING, STOMA RECESSED, RED VIABLE W/ SOFT BROWN STOOL NOTED, PERISTOMAL SKIN INTACT, NEW POUCH JOANNA 2 PIECE SYSTEM APPLIED W/ ADAPT RING UNDER WAFER, PHOTO TAKEN AND PLACED ON CHART, DR AGGARWAL NOTIFIED, SUPPLIES AT BS, WILL CONT TO FOLLOW PRN RECOMMENDATIONS; CHANGE APPLIANCES Q 3-5DAYS AND PRN, SUPERVISOR SANDING AWARE
--- NOTE | 2020-06-14 15:45 | NUR ---
ID HAD MADE MENTION OF CONSULTING PLASTICS RELATED TO POSSIBLE FLAP PROCEDURE. OSTOMY NURSE INDICATED THERE MAY BE ISSUE WITH PT'S OSTOMY SITE THAT MIGHT NEED SURGICAL INTERVENTION. [facility] AND [facility] ARE FOLLOWING RELATED TO SERVICES [facility]ON [facility] SARTHAK DIRECTOR WILL NEED BEDSIDE TEACH PRIOR TO DC. [facility] LR=[phone] & FAX [phone], [facility] FU=[phone], FAX [phone].
--- NOTE | 2020-06-14 17:00 | NUR ---
FAXED CLINICAL UPDATE TO [facility] SPOKE WITH JACOB IN ADM SHE RECEIVED UPDATE PT ON SERVICE WITH THEM PRIOR TO ADM BUT THEY WERE NOT ABLE TO INITIATE FIRST VISIT BEFORE ADM TO HOSPITAL AND WILL ACCEPT FOR HH IS NEEDED AT [place].
--- NOTE | 2020-06-14 17:01 | NUR ---
Assumed pt care at 7am.Pt in bed sleeping at the start of shift but woke up for am care and breakfast at 830am.Assessment completed.Ostomy nurse and changed colostomy bag.She noted either keloid or denuded stoma.Dr Rodriguez notified and picture taken and placed in chart.Dr Hernandez will be consulted pt Dr rodriguez.Will continue to monitor.
[2020-06-14 19:45] VITALS: BP 115/58
[2020-06-15 07:54] VITALS: BP 130/67
--- NOTE | 2020-06-15 10:54 | NUR ---
Assumed pt care at 7am.Pt in bed resting without c/o.Assessment completed.vss. Pt took meds with breakfast. Good appetite noted.Dr Hernandez here and after seen the pt,he said pt retracting stoma does not need surgical intervention but wound care.Dr Rodriguez and wound care will be notified.No verbal c/o.Will continue to monitor.
[2020-06-15 15:30] VITALS: BP 115/60
--- NOTE | 2020-06-15 15:39 | NUR ---
[facility] following along and updated. Surgical consult noted due to issues with her ostomy stoma. No surgical intervention anticipated. Possible dc home with hh and continued iv atb 1-2 days. Awaiting imput from wound care and the attending.
[2020-06-15 20:10] VITALS: BP 121/60
--- NOTE | 2020-06-16 03:04 | NUR ---
PT CARE ASSUMED WITH PT IN BED .PT IS A/O X4.PT HAS A COLOSTOMY AND UROSTOMY .PT DENIED PAIN.WOUND DRESSINGS D/C/I.PT IV ACCESS RT CHEST PICC DOUBLE LUMEN SL AND ANTIBIOTICS.WILL CONTINUE TO MONITOR
--- NOTE | 2020-06-16 08:33 | NUR ---
OSTOMY CARE; ALERT, COOPERATIVE, CHANGED COLOSTOMY POUCH W/ JOANNA 2 PIECE SYSTEM, PERISTOMAL HYPERGRANULATION TISSUE REMAINS,GRANULOMAS, SLIGHTLY LESS BLEEDING, TREATED AREAS W/ SILVER NITRATE, STOMA RECESSED, SOFT BROWN STOOL NOTED, PERISTOMAL SKIN INTACT, NEW UROSTOMY POUCH APPLIED CONVEX 1 1/' , PERISTOMAL SKIN INTACT, URINE CLEAR YELLOW, CONNECTED TO DEP DRAINAGE, SUPPLIES AT BS, WILL CONT TO FOLLOW RECOMMENDATIONS; CHANGE APPLIANCES Q3-5 DAYS AND PRN, EMPTY PRN COMPRESSED GAS PLANT WORKER AWARE
[2020-06-16 08:34] VITALS: BP 115/55; BP 127/58
--- NOTE | 2020-06-16 14:01 | NUR ---
ASSUMED PT CARE THIS AM. PT VSS, A&OX4. PT IS PLEASANT AND COOPERATIVE WITH STAFF. CALLS APPROPRIATELY WHEN NEEDED. IV PATENT, MEDS INFUSING AND TAKEN PO WELL. NO COMPLAINTS OF PAIN AT THIS TIME. COLOSTOMY AND OSTOMY BAG CHANGED BY OSTOMY NURSE TODAY. WOUND CARE TO BE DONE TODAY. HYDRATION ENCOURAGED. FALL PRECAUTIONS IN PLACE.
[2020-06-16 19:43] VITALS: BP 122/64
--- NOTE | 2020-06-17 05:52 | NUR ---
VSS-AFEBRILE. C/O PAIN FROM COCCYX WOUND OVERNIGHT. DRESSING TO COCCYX IS DRY AND INTACT. TURNED EVERY TWO HOURS AND OFFERED ORAL HYDRATION. FALL PRECAUTIONS IN PLACE. ILEOSTOMY AND COLOSTOMY STOMAS ARE PINK, AND DRAINING APPROPRIATELY. CALLS FOR ANY NEEDED ASSISTANCE.
[2020-06-17 08:07] VITALS: BP 121/56
[2020-06-17 15:10] VITALS: BP 119/66
--- NOTE | 2020-06-17 18:31 | NUR ---
PT A&OX4, VSS, DENIES PAIN. PATIENT UP TO RECLINER. WOUND CARE COMPLETED. PATIENT HAS COLOSTOMY AND UROSTOMY. PATIENT TOLERATING DIET. NO SIGNS OF DISTRESS. WILL CONTINUE TO MONITOR.
[2020-06-17 20:57] VITALS: BP 128/51
--- NOTE | 2020-06-18 06:14 | NUR ---
Assumed pt care at 1900. A/OX4,slow to respond at times. VSS. Denies pain on assessment. Vanco trough 27 @2029 notified,order to hold HS Vanco and resume morning dose. Woundcare to LIT done w/oa ny problems. Colostomy/urostomy in place with adequate outputs. Has a right subclavian central line,patent. Repositioned every 2 hrs w/o any problems voiced. OSCAR/Heel protectors in place,resting w/o distress noted. Will continue to monitor pt.
[2020-06-18 08:07] VITALS: BP 107/60
--- NOTE | 2020-06-18 14:09 | NUR ---
ASSUMED PT CARE THIS AM. PT VSS, A&OX4. PT PLEASANT, CALLS APPROPRIATELY WHEN NEEDED. PT HAS NO COMPLAINTS OF PAIN. MEDS TAKEN WELL THIS AM. PT HAS A COLOSTOMY AND UROSTOMY. TREMORS NOTED. IV PATENT, MEDS INFUSED WELL. PT REPOSITIONING IN BED. OSCAR MATTRESS PRESENT. ON ROOM AIR.
[2020-06-18 16:09] VITALS: BP 128/68
[2020-06-18 20:00] VITALS: BP 124/65
--- NOTE | 2020-06-19 04:22 | NUR ---
VSS-AFEBRILE. LUNGS CLEAR-ROOM AIR. PAIN WELL CONTROLLED WITH PRESCRIBED PAIN MEDICATIONS. TURNED AND OFFERED ORAL HYDRATION EVERY TWO HOURS. UROSTOMY AND ILEOSTOMY DRAINAING ADEQUATELY. FALL PRECAUTIONS IN PLACE. CALLS APPROPRIATELY FOR ANY NEEDED ASSISTANCE.
[2020-06-19 07:54] VITALS: BP 118/64
[2020-06-19 08:10] VITALS: BP 118/64
[2020-06-19 19:44] VITALS: BP 133/78
[2020-06-20 06:09] LABS: ABSOLUTE NEUTROPHILS 3.4 thou/uL (1.4-8.2); BASOPHILS 1.4 % (0.0-2.0); EOSINOPHILS 6.5 % (0.0-3.0); HEMATOCRIT 27.8 % (37.0-47.0); LYMPHOCYTES 21.5 % (24.0-44.0); MCH 27.1 pg (26.0-34.0); MCHC 32.4 g/dL (28.0-37.0); MCV 83.7 fL (80.0-100.0); MONOCYTES 11.7 % (1.0-8.0); PLATELET COUNT 200 thou/uL (150-400); POLYS 58.9 % (36.0-66.0); RBC 3.32 mil/uL (4.20-5.00); RDW 16.2 % (10.5-14.5); WBC 5.7 thou/uL (4.0-11.0)
[2020-06-20 06:41] LABS: ALBUMIN 1.9 g/dL (3.4-5.0); CALCIUM 8.5 mg/dL (8.5-10.1); CREATININE 1.2 mg/dL (0.6-1.0); POTASSIUM 3.5 mmol/L (3.5-5.1); TOTAL BILIRUBIN 0.3 mg/dL (0.2-1.0); TOTAL PROTEIN 6.4 g/dL (6.4-8.2)
[2020-06-20 08:07] VITALS: BP 136/61
--- NOTE | 2020-06-20 09:46 | NUR ---
OSTOMY CARE NOTE BOTH UROSTOMY AND COLOSTOMY POUCHES INTACT, LOOSE EDGES, ON SINCE 06/16. NEW UROSTOMY JOANNA CONVEX 1 06/20' APPLIED AND CONNECTED TO DEP DRAINAGE, STOMA PINKISH/RED VIABLE FLAT W/ SKIN SURFACE, PERISTOMAL SKIN INTACT. NEW POUCH JOANNA CUT TO FIT TO COLOSTOMY STOMA, STOMA PINK RECESSED, SOFT BROWN STOOL NOTED, HYPERGRANULATION TISSUE REMAINS W/ MILD BLEEDING, SILVER NITRATE APPLIED TO BLEEDING AREAS, PERISTOMAL SKIN INTACT. PT AWAKE COOPERATIVE, SUPPLIES AT BS RECOMMENDATIONS CHANGE POUCHES Q3-5DAYS AND PRN, CONT SILVER NITRATE TO HYPERGRANULATION TISSUE PRN BLEEDING COMPUTER TECHNOLOGIST AWARE
--- NOTE | 2020-06-20 14:43 | NUR ---
PT IS PROGRESSING TOWARD GOAL OF DISCHARGE. LOOKS LIKE VANC TROUGH IS BEING CHECKED. [facility] FOLLOW[facility] RELATED TO SERVICES UPON PT'S RETURN TO HER [facility] DE LEÓN DIRECTOR WILL NEED BEDSIDE TEACH PRIOR TO DC. [facility] UE=[phone] & FAX [phone], [facility] QF=[phone], FAX [phone].
[2020-06-20 14:59] VITALS: BP 134/77
[2020-06-20 19:31] VITALS: BP 124/68
--- NOTE | 2020-06-20 19:37 | NUR ---
ASSUMED CARE OF THE PATIENT AT 0715, PATIENT ALERT AND ORIENTED X 3. PATIENT LETI PAIN DURING REPORT, BUT DENIZ/RN GAVE IV PAIN MEDS THIS AM, PATIENT ASSISTED UP TO THE CHAIR PER PT. PATIENT DID AMBULATE WITH PHYSICAL THERAPY TODAY. RIGHT HEEL BLEEDING AFTER SHE AMBULATED. WOUND CARE DID DRESSINGS TODAY PER DR SANDERS. NO OTHER COMPLIANTS OR CONCERNS FROM THE PATIENT. DR AGGARWAL HERE THIS EVENING, UNSURE ABOUT DISCHARGE PLANS.
[2020-06-21 08:49] VITALS: BP 104/72
[2020-06-21 09:23] VITALS: BP 136/74
--- NOTE | 2020-06-21 14:05 | NUR ---
1 MID LEVEL PROVIDER, 1 DINAMAP MACHINE, 16 PATIENTS
--- NOTE | 2020-06-21 14:21 | NUR ---
PT A&OX4, VSS, DENIES PAIN. PATIENT UP TO RECLINER WITH PT. PATIENT TOLERATING DIET. NO SIGNS OF DISTRESS. WILL CONTINUE TO MONITOR.
[2020-06-21 16:16] VITALS: BP 131/72
--- NOTE | 2020-06-21 16:31 | NUR ---
PT IS PROGRESSING TOWARD GOAL OF DISCHARGE. LOOKS LIKE VANC TROUGH IS BEING CHECKED. [facility] ARE FOLLOWING RELATED TO SERVICES UPON PT'S RETURN TO HER HALFWAY JIM DE LEÓN DIRECTOR WILL NEED BEDSIDE TEACH PRIOR TO DC. [facility] SU=[phone] & FAX [phone], [facility] YW=[phone], FAX [phone].
[2020-06-21 18:53] VITALS: BP 129/71
[2020-06-22 07:34] VITALS: BP 121/70
--- NOTE | 2020-06-22 07:58 | NUR ---
PROGRESS PT A/O X4 OM BEDREST UP WITH PT ONLY. VSS C/O PAIN WITH DRESSING CHANGES ONLY. WOUND CARE AND PICTURES TAKEN PER PROTOCOL WOUND TO BOTH HEEL AND L IT HEALING WELL SCANT AMOUNT OF SEROSANGUINOUS DRAINAGE, IV ANTIBIOTICS CONTINUE. ACCUCHECKS ORDERED CONTINUE POC.
[2020-06-22 15:27] VITALS: BP 132/70
--- NOTE | 2020-06-22 18:42 | NUR ---
PATIENT IS ALERT, AND ORIENTED X 3-4 ABLE TO VOICE NEED. PATIENT IS CALM, PLEASANT, MEDICATION GIVEN WHOLE, WELL TOLERATED. PATIENT IS EATING MEALS, AND DRINKING FLUID WELL. PATIENT DENIES HAVING PHYSICAL PAIN. COLOSTOMY/UROSTOMY CARE PROVIDED, AND IN PLACE. DRESSING TO WOUND AREAS CHANGED THIS MORNING BY NIGHT NURSE, SAME INTACT. NO SIGN, AND SYMPTOMS OF DIEABETIC REACTION NOTED. LUNGS DIMINISHED PER AUSCULTATION IN ALL LOBE. B+X4, ABD SOFT, OBESE, NONTENDER TO TOUCH. PATIENT IS EATING MEALS, AND DRINKING FLUID WELL, ABLE TO FEED SELF. PICC LINE TO RIGHT CHEST PATENT, GETTING VANCOMYCIN. NO SIGN OF ACUTE DISTRESS NOTED AT THIS TIME, CALL LIGHT IN PLACE, WILL CONTINUE TO MONITOR.
[2020-06-22 19:07] VITALS: BP 122/59
--- NOTE | 2020-06-22 19:18 | HC ---
[facility] [place] [address] CONSULTATION Name: AUDRA HARRIS Room #: 458-P [facility] IN M.R.#: [id number] Admission: 06/02/20 Attend Phys: Steven Rodriguez MD, FAA Discharge: Date of : 64 Report #: [id number] THIS REPORT FOR: cc: Steven Rodriguez MD FAA FACE Steven Rodriguez MD FAA FACE Maurice Burnette MD ~ DATE OF SERVICE: 06/03/2020 CHIEF COMPLAINT: Multiple pressure ulcerations. HISTORY OF PRESENT ILLNESS: This is a 60-year-old female patient with whom I am familiar from multiple previous hospitalizations, has had recurring pressure ulceration on the left ischial region, previously debrided multiple times by Dr. Gonzalez. She has been admitted to the hospital for further evaluation and treatment of this with debridement. Dr. Hernandez has been consulted already. The patient has no specific complaints. PAST MEDICAL HISTORY: The patient has a history of spina bifida, lives in a half-way. She is also noted to have an ulceration on her right heel. The patient's other medical history includes epilepsy, seizures, hydrocephalus, hepatitis C, mood disorder, hyperlipidemia, eczema, GERD, anemia, asthma, hysterectomy, diabetes, Parkinson's. MEDICATIONS: Include Cipro, ibuprofen, carbidopa/levodopa, famotidine, Abreva, Antivert, nystatin, Lasix, Delsym, Norvasc, Comtan. ALLERGIES: ADHESIVE TAPE. SOCIAL HISTORY: Negative for current alcohol or tobacco use. Once again lives in a half-way. REVIEW OF SYSTEMS: CONSTITUTIONAL: The patient denies fever, chills or weight loss. NEUROLOGIC: The patient has lower extremity weakness. Denies any new focal weakness, numbness or tingling. EYES: The patient denies visual changes, redness, or drainage. ENT: The patient denies earache, nasal drainage or sore throat. CARDIOVASCULAR: The patient denies chest pain, palpitations or diaphoresis. PULMONARY: The patient denies cough or shortness of breath. GASTROINTESTINAL: The patient denies nausea, vomiting, diarrhea. ORTHOPEDIC: The patient is aware of the ulceration on her right heel and the ischial region. Other systems in a 14-point review of systems are negative. PHYSICAL EXAMINATION: [address] [address] CONSULTATION Name: AUDRA HARIRS Room #: 458-P [facility] IN .R.#: [id number] Admission: 06/02/20 Attend Phys: Steven Rodriguez MD, FAAF Discharge: Date of : 64 Report #: [id number] VITAL SIGNS: At this time include temperature 37.2, pulse 77, respiratory rate 14, blood pressure 146/75. GENERAL: This is a well-developed female patient who appears to be in minimal distress. HEENT: Head is normocephalic. Nose and throat clear. NECK: Supple. ABDOMEN: Bowel sounds present. Ischial region demonstrates exposed bone on a stage 4 ischial ulceration. There is mild odor, some granulation tissue noted. EXTREMITIES: Lower extremities demonstrate a stage 3 pressure ulceration to the right heel, which is relatively clean and granulating with no evidence of infection. CLINICAL IMPRESSION: 1. 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 2. Spina bifida. 3. Severe protein-calorie malnutrition, albumin 2.3. 4. Stage 3 pressure ulceration to the right heel. RECOMMENDATIONS: At this point in time, we will recommend surgical debridement as is already scheduled to the left ischial ulcer. Consider wound VAC. She may ultimately require flap for closure. We will recommend topical Xeroform and border foam to the right heel. It is clean and granulating. She will need PRAFO boots for pressure prophylaxis, low air loss mattress, q.2 hours turning and positioning and aggressive nutritional support. I appreciate being asked to see her in consultation. <ELECTRONICALLY SIGNED> By: Maurice Burnette MD 06/22/20 [id number] Maurice Burnette MD /nt
[2020-06-22 19:21] VITALS: BP 149/53
--- NOTE | 2020-06-23 02:40 | NUR ---
ASSUMED CARE OF PT AT 1900HRS. PT AOX3-4 AND LETS NEEDS BE KNOWN. FALL PRECAUTION IN PLACE. PT TURNED Q2H. PT DENIED PAIN NAUSEA OR SOA. PINK STOMAS ON BOTH COLOSTOMY AND UROSTOMY. ABX TREATMENT CONTINUED. PT WAS ABLE TO GET COMFORTABLE AND SLEEP PART OF THE SHIFT. VSS AND NO S/S OF ACUTE DISTRESS. WILL CONTINUE TO MONITOR.
[2020-06-23 07:01] VITALS: BP 115/61
--- NOTE | 2020-06-23 15:44 | NUR ---
DR. AGGARWAL INDIATED THAT PT MAY BE MEDICALLY STABLE TO RETURN TO HER [facility] THE END OF THIS WEEK. CM SPOKE WITH PAPITO AT [facility] AND PROVIDED HER UPDATE. PT IS PROGRESSING TOWARD GOAL OF DISCHARGE. [facility] AND [facility] ARE FOLLOWING RELATED TO SERVICES UPON PT'S RETURN TO HER [facility]. SARTHAK DIRECTOR WILL NEED BEDSIDE TEACH PRIOR TO DC. [facility] LE=[phone] & FAX [phone], [facility] WN=[phone], FAX [phone].
[2020-06-23 15:53] VITALS: BP 136/63
[2020-06-23 19:05] VITALS: BP 129/75
--- NOTE | 2020-06-23 20:19 | NUR ---
Assumed pt care this am, VS stable. Colostomy bag changed, drainig brown stool, and urostomy patent draning yellow urine. Q2 turns done, wound care and dressing vhange done. POC followed with no signs or verbalizations of distress noted. Covid test needed if pt is to be DC tomorrow, endorsed to the night nurse.
[2020-06-24 07:15] VITALS: BP 129/68
--- NOTE | 2020-06-24 11:34 | NUR ---
OSTOMY CARE; COLOSTOMY POUCH LEAKING, NEW POUCH JOANNA 2 PIECE SYSTEM APPLIED, ADAPT RING UNDER WAFER, HYPERGRANULATION TISSUE BLEEDING SCANT AMTS, SILVER NITRATE APPLIED TO BLEEDING AREAS AND CEASED, PERISTOMAL SKIN INTACT, STOMA PINK VIABLE RECESSED W/ SOFT FORMED STOOL PRESENT, UROSTOMY POUCH CHANGED USING JOANNA ONE PIECE CONVEX APPLIANCE, CONNECTED TO DEP DRAINAGE, STOMA PINKISH/RED VIABLE, FLAT W/ SKIN SURFACE, CLEAR YELLOW URINE NOTED, PT ALERT, COOPERATIVE, SUPPLIES AT BS RECOMMENDATIONS; CHANGE APPLIANCES Q 3-5 DAYS AND PRN, EMPTY PRN BUCKET PUSHER AWARE
[2020-06-24 15:16] VITALS: BP 138/76
[2020-06-24 15:28] VITALS: BP 129/68
--- NOTE | 2020-06-24 16:10 | NUR ---
PT DISCHARGING TODAY TO HOME WITH [facility] AND [facility] FOR IV ABX SPOKE WITH KAITY FROM [facility] AND RECEIVED CONFIRMATION AND SPOKE WITH INES CRAIG THEY WILL ARRANGE VISITS WITH PT.
--- NOTE | 2020-06-24 17:32 | NUR ---
Patient left with IV on around 1700.
== END 2020-06-24 18:13 | disposition home health service (06) | DRG 579 ==
LOC: ER 11:00 → 4S 17:19 → EROBS 17:19 → TBACV 06-03 09:35 → TBA 06-03 09:41 → 4S 06-03 13:13 → 4W 06-10 18:24
PROVIDERS: Internal Medicine; Physician Assistant; ADMIT Family Medicine; ATTEND Family Medicine
DX: L89.324 Pressure ulcer of left buttock, stage 4 (principal); E43 Unspecified severe protein-calorie malnutrition; N17.9 Acute kidney failure, unspecified; M86.8X8 Other osteomyelitis, other site; L89.613 Pressure ulcer of right heel, stage 3; E78.5 Hyperlipidemia, unspecified; K21.9 Gastro-esophageal reflux disease without esophagitis; J45.909 Unspecified asthma, uncomplicated; G40.909 Epilepsy, unspecified, not intractable, without status epilepticus; D50.9 Iron deficiency anemia, unspecified; B96.89 Other specified bacterial agents as the cause of diseases classified elsewhere; Z20.822 Contact with and (suspected) exposure to COVID-19; E11.69 Type 2 diabetes mellitus with other specified complication; S00.01XA Abrasion of scalp, initial encounter; X58.XXXA Exposure to other specified factors, initial encounter; Y93.89 Activity, other specified; Y92.89 Other specified places as the place of occurrence of the external cause; Y99.8 Other external cause status; Z86.14 Personal history of Methicillin resistant Staphylococcus aureus infection; Z90.710 Acquired absence of both cervix and uterus; Z88.8 Allergy status to other drugs, medicaments and biological substances; Z93.3 Colostomy status; Z86.19 Personal history of other infectious and parasitic diseases; Q05.9 Spina bifida, unspecified; Z91.040 Latex allergy status
CPT/HCPCS: 10040; 10195; 50010; 50101; 50366; 50386; 50403; 50643; 57119; 57120; 62110; 62900; 70005

== ENCOUNTER → 2020-06-02 | Outpatient (CLI) | payer OTHER | LOC: HYPER 09:29 | PROVIDERS: ATTEND Emergency Medicine | DX: L89.223 Pressure ulcer of left hip, stage 3 (principal); L89.612 Pressure ulcer of right heel, stage 2; S01.01XA Laceration without foreign body of scalp, initial encounter; S81.811A Laceration without foreign body, right lower leg, initial encounter; G40.909 Epilepsy, unspecified, not intractable, without status epilepticus; M86.8X8 Other osteomyelitis, other site; Q05.9 Spina bifida, unspecified; E66.9 Obesity, unspecified; Z68.35 Body mass index [BMI] 35.0-35.9, adult; X58.XXXA Exposure to other specified factors, initial encounter; Y93.89 Activity, other specified; Y92.89 Other specified places as the place of occurrence of the external cause; Y99.8 Other external cause status ==

== ENCOUNTER 2020-07-18 17:52 | Emergency (ER) | payer OTHER ==
[~2020-07-18] VITALS: Ht 160 cm; Wt 95.3 kg
[2020-07-18 19:30] LABS: ABSOLUTE NEUTROPHILS 4.7 thou/uL (1.4-8.2); BASOPHILS 0.7 % (0.0-2.0); EOSINOPHILS 2.7 % (0.0-3.0); HEMOGLOBIN 10.5 gm/dL (12.0-15.0); LYMPHOCYTES 18.3 % (24.0-44.0); MCH 25.5 pg (26.0-34.0); MCHC 31.7 g/dL (28.0-37.0); MCV 80.4 fL (80.0-100.0); MONOCYTES 8.5 % (1.0-8.0); PLATELET COUNT 233 thou/uL (150-400); POLYS 69.8 % (36.0-66.0); RBC 4.11 mil/uL (4.20-5.00); RDW 15.7 % (10.5-14.5); WBC 6.7 thou/uL (4.0-11.0)
[2020-07-18 19:38] LABS: CALCIUM 8.7 mg/dL (8.5-10.1); CREATININE 1.3 mg/dL (0.6-1.0)
[2020-07-18 19:44] LABS: ALBUMIN 2.7 g/dL (3.4-5.0); TOTAL BILIRUBIN 0.3 mg/dL (0.2-1.0); TOTAL PROTEIN 7.7 g/dL (6.4-8.2)
[2020-07-18 22:05] VITALS: BP 143/70
== END 2020-07-18 22:05 | disposition home or self-care (01) ==
LOC: ER 17:52
PROVIDERS: Nurse Practitioner
DX: E11.622 Type 2 diabetes mellitus with other skin ulcer (principal); L89.524 Pressure ulcer of left ankle, stage 4; G40.909 Epilepsy, unspecified, not intractable, without status epilepticus; K21.9 Gastro-esophageal reflux disease without esophagitis; J45.909 Unspecified asthma, uncomplicated; Z91.040 Latex allergy status; Z79.899 Other long term (current) drug therapy; Z98.890 Other specified postprocedural states

== ENCOUNTER → 2020-07-26 | Outpatient (CLI) | payer OTHER | LOC: HYPER 13:20 | PROVIDERS: ATTEND Emergency Medicine | DX: L89.223 Pressure ulcer of left hip, stage 3 (principal); L89.612 Pressure ulcer of right heel, stage 2; S01.01XD Laceration without foreign body of scalp, subsequent encounter; S81.811D Laceration without foreign body, right lower leg, subsequent encounter; G40.909 Epilepsy, unspecified, not intractable, without status epilepticus; M86.8X8 Other osteomyelitis, other site; Q05.9 Spina bifida, unspecified; E66.9 Obesity, unspecified; Z68.35 Body mass index [BMI] 35.0-35.9, adult; X58.XXXD Exposure to other specified factors, subsequent encounter ==

== ENCOUNTER → 2020-08-15 | Outpatient (CLI) | payer OTHER | LOC: LAB 11:27 | PROVIDERS: ATTEND Radiology Diagnostic Radiology | DX: Z01.812 Encounter for preprocedural laboratory examination (principal); Z20.822 Contact with and (suspected) exposure to COVID-19 ==

== ENCOUNTER → 2020-08-23 | Outpatient (CLI) | payer OTHER | LOC: HYPER 13:55 | PROVIDERS: ATTEND Emergency Medicine | DX: L89.223 Pressure ulcer of left hip, stage 3 (principal); L89.612 Pressure ulcer of right heel, stage 2; S01.01XD Laceration without foreign body of scalp, subsequent encounter; S81.811D Laceration without foreign body, right lower leg, subsequent encounter; Q05.9 Spina bifida, unspecified; M86.9 Osteomyelitis, unspecified; G40.909 Epilepsy, unspecified, not intractable, without status epilepticus; E66.9 Obesity, unspecified; Z79.899 Other long term (current) drug therapy; Z68.35 Body mass index [BMI] 35.0-35.9, adult; X58.XXXD Exposure to other specified factors, subsequent encounter ==

== ENCOUNTER 2020-09-05 01:59 | Emergency (ER) | payer OTHER ==
[~2020-09-05] VITALS: Ht 162.6 cm; Wt 95.3 kg
--- NOTE | ~2020-09-05 | EMS ---
[place] [address] EMS Patient Care Report Name: AUDRA HARRIS Room #: REG [facility] Masters#: [id number] Admission: 09/05/20 Attend Phys: Discharge: Date of : 64 Report #: [id number] THIS REPORT FOR: //name// Report Transmitted: 09/05/2020 03:12 EMS Care Summary [place], [place]/[facility] Incident [id number] @ 09/05/2020 01:33 Incident Location [address] [place] [address] Patient AUDRA HARRIS Female, 60 Years 1960 Patient Address [address] [place] [address] Patient History Epilepsy,Hyperlipidemia,Hepatitis C (Without Hepatic Coma),Anemia,Urinary Incontinence,Hydrocephalus,Spina Bifida, Patient Allergies No known allergies, Patient Medications None Reported, Chief Complaint HEMATURIA Disposition Transported No Lights/[place] Dispatch Reason Hemorrhage/Laceration Transported To [facility] Narrative RESPONDED TO HEMORRHAGE AT [facility]. UPON ARRIVAL PT FOUND SITTING IN WHEELCHAIR ALERT AND ORIENTED. 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 PT REPORTS LOWER ABDOMINAL PAIN [address] [address] EMS Patient Care Report Name: AUDRA HARRIS Room #: REG [facility] Masters#: [id number] Admission: 09/05/20 Attend Phys: Discharge: Date of : 64 Report #: [id number] WELL. PT PIVOTS TO COT WITH ASSISTANCE. PT VITALS OBTAINED. PT BEGAN DRY HEAVING AND GIVEN ZOFRAN ORAL PILL. PT TRANSPORTED WITH NO CHANGES IN CONDITION. PT TEAM LIFTED TO BED AND HANDRAILS UP. REPORT GIVEN TO NURSE. Initial Vitals @01:45P: 109,R: 20,BP: 146/74,SpO2: 98, @01:53P: 102,R: 18,BP: 148/74,Pain: 9/10,GCS: 15,SpO2: 98,Revised Trauma: 12, Assessments @01:41MENTAL:Time Oriented,Person Oriented,Place Oriented,Event Oriented,SKIN:HEENT:Head/Face: No Abnormalities,Neck/Airway: No Abnormalities,LUNG SOUNDS:Right Lower: Tenderness,General: Vomiting,General: Nausea,Left Lower: Tenderness,Left Upper: No Abnormalities,Right Upper: No Abnormalities,ABDOMEN:Right Lower: Tenderness,General: Vomiting,General: Nausea,Left Lower: Tenderness,Left Upper: No Abnormalities,Right Upper: No Abnormalities,PELVIS//GI:Incontinence,Hematuria,EXTREMITIES:Left Arm: Weakness,Right Arm: Weakness,Left Leg: Weakness,Right Leg: Weakness,PULSE:NEURO:No Abnormalities,@01:51MENTAL:Place Oriented,Person Oriented,Event Oriented,Time Oriented,SKIN:HEENT:Head/Face: No Abnormalities,Eyes: No Abnormalities,Neck/Airway: No Abnormalities,LUNG SOUNDS:General: Nausea,Left Upper: No Abnormalities,Right Upper: No Abnormalities,Left Lower: No Abnormalities,Right Lower: No Abnormalities,ABDOMEN:General: Nausea,Left Upper: No Abnormalities,Right Upper: No Abnormalities,Left Lower: No Abnormalities,Right Lower: No Abnormalities,PELVIS//GI:Hematuria,Incontinence,EXTREMITIES:Left Arm: Weakness,Right Leg: Weakness,Right Arm: Weakness,Left Leg: Weakness,PULSE:NEURO:No Abnormalities, Impression Urinary Tract Infection (UTI) Procedures @01:45Zofran - 4 Milligrams (mg) - OralResponse: Unchanged@01:41ALS AssessmentResponse: UnchangedSucceeded Timeline :,Call Received :,Dispatch Notified 01:33,Dispatched 01:35,En Route 01:39,On Scene :41,At Patient :41,ALS Assessment,Response: UnchangedSucceeded, 01:45,Zofran - 4 Milligrams (mg) - Oral,Response: Unchanged 01:45,BP: 146/74 M,PULSE: 109,RR: 20 R,SPO2: 98 Ox,ETCO2: ,BG: ,PAIN: ,GCS: , 01:46,Depart Scene [address] [address] EMS Patient Care Report Name: AUDRA HARRIS Fidel Room #: REG M.R.#: [id number] Admission: 09/05/20 Attend Phys: Discharge: Date of : 64 Report #: [id number] 01:53,BP: 148/74 M,PULSE: 102,RR: 18 R,SPO2: 98 Ox,ETCO2: ,BG: ,PAIN: 9,GCS: 15, 01:54,At Destination 02:08,Call Closed Disclaimer v1.1 Copyright 2020 [employer] This EMS Care Summary contains data elements from the applicable legal record (which may be displayed differently). It is designed to provide pertinent information for the following purposes: continuity of care, clinical quality, and state data reporting. The complete legal record is available to ED staff and administrators of the receiving hospital in [employer]'s Patient Tracker. All data is provided "as is."
[2020-09-05 02:41] LABS: ABSOLUTE NEUTROPHILS 6.5 thou/uL (1.4-8.2); BASOPHILS 0.7 % (0.0-2.0); EOSINOPHILS 1.1 % (0.0-3.0); HEMATOCRIT 31.2 % (37.0-47.0); HEMOGLOBIN 9.9 gm/dL (12.0-15.0); LYMPHOCYTES 19.1 % (24.0-44.0); MCH 23.9 pg (26.0-34.0); MCHC 31.8 g/dL (28.0-37.0); MCV 75.1 fL (80.0-100.0); MONOCYTES 8.3 % (1.0-8.0); PLATELET COUNT 225 thou/uL (150-400); POLYS 70.8 % (36.0-66.0); RBC 4.16 mil/uL (4.20-5.00); RDW 17.6 % (10.5-14.5); WBC 9.2 thou/uL (4.0-11.0)
[2020-09-05 02:50] LABS: CALCIUM 8.8 mg/dL (8.5-10.1); CREATININE 1.3 mg/dL (0.6-1.0); POTASSIUM 3.4 mmol/L (3.5-5.1)
[2020-09-05 02:55] LABS: APTT 29.1 Seconds (24.5-32.8); PROTIME 11.3 Seconds (9.3-11.4)
[2020-09-05 02:56] LABS: ALBUMIN 2.7 g/dL (3.4-5.0); DIRECT BILIRUBIN 0.1 mg/dL (<0.1-0.2); TOTAL BILIRUBIN 0.4 mg/dL (0.2-1.0); TOTAL PROTEIN 7.2 g/dL (6.4-8.2)
[2020-09-05 04:26] LABS: URINE BILIRUBIN NEGATIVE (Negative); URINE BLOOD NEGATIVE (Negative); URINE CLARITY CLEAR; URINE COLOR YELLOW; URINE GLUCOSE-RANDOM* NEGATIVE (Negative); URINE KETONES NEGATIVE (Negative); URINE PROTEIN (DIPSTICK) TRACE (Negative); URINE UROBILINOGEN 0.2 E.U./dl (0.2-1.0)
[2020-09-05 04:29] LABS: URINE LEUKOCYTES-REFLEX 2+ (Negative); URINE NITRITE-REFLEX POSITIVE (Negative)
[2020-09-05 04:38] LABS: CASTS None Seen /LPF (None Seen); MUCUS 0-3 Light strn/LPF (None Seen); SQUAMOUS None Seen /LPF (0-3); URINE RBC 0-2 Rare /HPF (0-2); URINE WBC-REFLEX 6-15 Few /HPF (0-5)
[2020-09-05 04:39] LABS: AMORPHOUS PHOSPHATES Moderate /LPF (None Seen); CRYSTALS None Seen /LPF (None Seen); TRIPLE PHOSPHATE CRYSTALS >10 Many /LPF (None Seen)
[2020-09-05] MEDS ORDERED: CEFPODOXIME PR200 M1 PO (05:11)
[2020-09-05] MEDS ORDERED: ONDANSETRON ODT4 MG PO (05:13)
[2020-09-05 05:57] VITALS: BP 138/64
--- NOTE | 2020-09-05 07:26 | EKG ---
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 : 1960 Requested By: Yennifer Swenson Order Number: [id number] MD: Rodrigo Johnson Measurements Intervals Elmer Rate: 87 P: 65 SD: 134 QRS: -29 QRSD: 106 T: 36 QT: 395 QTc: 476 Interpretive Statements Sinus rhythm Inferior infarct, old Compared to ECG 04/06/2019 09:04:01 Ventricular premature complex(es) no longer present Myocardial infarct finding still present Electronically Signed On 09-05-2020 7:26:23 CDT by Rodrigo Johnson [email or web address] <ELECTRONICALLY SIGNED> By: Rodrigo Johnson MD, [facility] 09/05/20 0726 0244 024 Rodrigo Johnson MD, FACC /EPI
== END 2020-09-05 05:58 | disposition home or self-care (01) ==
LOC: ER 01:59
DX: R11.2 Nausea with vomiting, unspecified (principal); N39.0 Urinary tract infection, site not specified; D50.9 Iron deficiency anemia, unspecified; E11.22 Type 2 diabetes mellitus with diabetic chronic kidney disease; N18.9 Chronic kidney disease, unspecified; K21.9 Gastro-esophageal reflux disease without esophagitis; J45.909 Unspecified asthma, uncomplicated; Z90.710 Acquired absence of both cervix and uterus; Z79.899 Other long term (current) drug therapy; Z91.048 Other nonmedicinal substance allergy status; Z91.040 Latex allergy status

== ENCOUNTER → 2020-10-17 | Outpatient (CLI) | payer OTHER ==
[~2020-10-17] MED LIST changes: +CEFPODOXIME PR200 M1 PO; +ONDANSETRON ODT4 MG PO
== END ==
LOC: HYPER 14:01
PROVIDERS: ATTEND Emergency Medicine
DX: L89.223 Pressure ulcer of left hip, stage 3 (principal); L89.612 Pressure ulcer of right heel, stage 2; S01.01XD Laceration without foreign body of scalp, subsequent encounter; S81.811D Laceration without foreign body, right lower leg, subsequent encounter; Q05.9 Spina bifida, unspecified; M86.9 Osteomyelitis, unspecified; G40.909 Epilepsy, unspecified, not intractable, without status epilepticus; E66.9 Obesity, unspecified; Z79.899 Other long term (current) drug therapy; Z68.35 Body mass index [BMI] 35.0-35.9, adult; X58.XXXD Exposure to other specified factors, subsequent encounter

== ENCOUNTER → 2020-11-10 | Outpatient (CLI) | payer OTHER | LOC: HYPER 09:17 | PROVIDERS: ATTEND Emergency Medicine | DX: L89.153 Pressure ulcer of sacral region, stage 3 (principal); L89.223 Pressure ulcer of left hip, stage 3; L89.612 Pressure ulcer of right heel, stage 2; S81.811D Laceration without foreign body, right lower leg, subsequent encounter; Q05.9 Spina bifida, unspecified; M86.9 Osteomyelitis, unspecified; G40.909 Epilepsy, unspecified, not intractable, without status epilepticus; E66.9 Obesity, unspecified; Z68.35 Body mass index [BMI] 35.0-35.9, adult; X58.XXXD Exposure to other specified factors, subsequent encounter ==

== ENCOUNTER → 2020-12-26 | Outpatient (CLI) | payer OTHER ==
[~2020-12-26] MED LIST changes: +BACITRACIN ZINC28 GM TOP; +BENADRYL ALLERG25 MG PO; +CARBIDOPA-LEVO1 EAC9 PO; +DAKIN'S473 M1 TOP; +DELSYM COU30 MG/5 M1 PO; +ENTACAPONE200 M1 PO; +FAMOTIDINE 20 M20 MG PO; +FERREX 150 FORT1 CAP PO; +MAG-AL PLUS SUS30 ML PO; +MUPIROCIN1 GM TOP; +ONDANSETRON HCL4 M3 DISSOLVE; +PEPCID20 MG PO; +VENOFER200 MG/10 IVPB; +VITAMIN C500 M1 PO; +VITAMIN D21250 MCG PO; +ZINC SULFATE50 MG PO
== END ==
LOC: HYPER 08:04
PROVIDERS: ATTEND Emergency Medicine
DX: L89.894 Pressure ulcer of other site, stage 4 (principal); M86.9 Osteomyelitis, unspecified

== ENCOUNTER 2020-12-29 00:39 | Inpatient (IN) | payer OTHER ==
[~2020-12-29] VITALS: Ht 157.5 cm; Wt 77.1 kg
--- NOTE | ~2020-12-29 | EMS ---
[place] [address] EMS Patient Care Report Name: AUDRA HARRIS Room #: PRE M.R.#: [id number] Admission: Attend Phys: Discharge: Date of : 64 Report #: [id number] THIS REPORT FOR: //name// Report Transmitted: 12/29/2020 00:53 EMS Care Summary [place], [place]/[facility] Incident [id number] @ 12/29/2020 00:19 Incident Location [address] [place] [address] Patient AUDRA HARRIS Female, 60 Years 1960 Patient Address [address] [place] [address] Patient History Epilepsy,Parkinson's Disease,Hyperlipidemia,Gastrointesinal Hemorrhage,Hepatitis C (Without Hepatic Coma),Anemia,Colostomy,Hydrocephalus,Spina Bifida, Chief Complaint abd pain Disposition Transported No Lights/[place] Dispatch Reason Abdominal Pain/Problems Transported To [facility] Narrative pt found ambulatory in the alf. pt started to c/o abd pain to staff approx 2-3 hours ago. staff gave pt antacid w/o relief. pt states pain is constant and located near umbilicus. pt to be eval at [facility]. pt seats self on cot, transport w/o [place] [address] EMS Patient Care Report Name: AUDRA HARRIS Room #: PRE [facility].R.#: [id number] Admission: Attend Phys: Discharge: Date of : 64 Report #: [id number] @00:32P: 100,R: 28,BP: 129/55,Pain: 8/10,GCS: 14,SpO2: 98,Revised Trauma: 12, Assessments @00:25MENTAL:Other,Person Oriented,Place Oriented,Time Oriented,SKIN:No Abnormalities,HEENT:Head/Face: No Abnormalities,LUNG SOUNDS:General: Other,ABDOMEN:General: Other,PELVIS//GI:EXTREMITIES:PULSE:Radial: 2+ Normal,NEURO: Impression Abdominal Pain Procedures @00:28StretcherResponse: Unchanged Timeline 00:17,Call Received 00:17,Dispatch Notified 00:19,Dispatched 00:19,En Route 00:24,On Scene 00:25,At Patient 00:28,Stretcher,Response: Unchanged 00:30,Depart Scene 00:32,BP: 129/55 M,PULSE: 100,RR: 28 R,SPO2: 98 Ox,ETCO2: ,BG: ,PAIN: 8,GCS: 14, 00:37,At Destination 00:56,Call Closed Disclaimer v1.1 Copyright 2020 [employer] This EMS Care Summary contains data elements from the applicable legal record (which may be displayed differently). It is designed to provide pertinent information for the following purposes: continuity of care, clinical quality, and state data reporting. The complete legal record is available to ED staff and administrators of the receiving hospital in [employer]'s Patient Tracker. All data is provided "as is."
--- NOTE | ~2020-12-29 | D ---
[facility] [place] [address] DISCHARGE SUMMARY Name: AUDRA HARRIS Room #: 460-P [facility] IN .R.#: [id number] Admission: 12/29/20 Attend Phys: Steven Rodriguez MD, [facility] Discharge: 01/07/21 Date of : 64 Report #: [id number] THIS REPORT FOR: cc: Steven Rodriguez MD [facility] Steven Rodriguez MD [facility] Garret Crouch DO ~ cc: Steven Rodriguez MD, Joe Crowder MD, [facility] DATE OF SERVICE: 01/07/2021 HISTORY: This 60-year-old white female, patient of Dr. Steven Rodriguez, was admitted through the Emergency Room with septic changes including weakness, leftward shift, pyuria and worsening decubitus ulcer on her left ischial area. The patient has a past history of significant mobility problems due to spina bifida with leg weakness, Parkinson's disease, epilepsy with seizures, hydrocephalus, mental delay, previous colostomy and urostomy, nephrectomy, multiple hernia surgeries, previous incision and debridement of this pressure ulcer, granulomatous polyps removed from the colostomy stoma, type 2 diabetes and history of self-mutilation. HOSPITAL COURSE: INITIAL PHYSICAL EXAMINATION: GENERAL: Revealed a weak, slightly overweight white female. VITAL SIGNS: Initial temperature was 36.6, BP 146/58. HEAD AND NECK: Negative. LUNGS: Clear. CARDIOVASCULAR: With no murmur, gallop. ABDOMEN: Soft, nontender with functioning colostomy and urostomy tubes. EXTREMITIES: Revealed a large left buttock wound, which looked clean without drainage. LABORATORY DATA: White count was 7900 with a leftward shift, hemoglobin 10.2, platelets 211,000. Sodium 138, potassium 3.9, CO2 is 27, BUN 16, creatinine 1.2, estimated GFR 46, glucose 117, lactate 2.7, which dropped to 1.2 after fluid infusion. Liver enzymes normal. Albumin low. Urinalysis showed many white cells. Chest x-ray was negative. The patient was admitted, on IV antibiotics. Urine culture subsequently grew out Klebsiella, sensitive to all antibiotics except to ampicillin. She was seen in consult by Dr. Lopez of Wound Care and Dr. Crowder of Surgery and eventually nurse practitioner, Justina Zambrano, of rehabilitation. Dr. Crowder on 01/05/2021 performed excisional debridement of left ischial tuberosity pressure ulcer, stage 4, 2 x 2 cm down through the bone and excision of colostomy masses. Pathology is still pending. Clinically, suspected as osteomyelitis of the ischium and possibly granulomas of the colostomy site. The pathology is still pending. The patient tolerated the procedure well. Her final hemoglobin was 8.7 g, white count 4300. Sodium 145, potassium 4.6, CO2 of [address] [address] DISCHARGE SUMMARY Name: AUDRA HARRIS Room #: 460-P [facility] IN M.R.#: [id number] Admission: 12/29/20 Attend Phys: Steven Rodriguez MD, FAAF Discharge: 01/07/21 Date of : 64 Report #: [id number] 26, BUN , creatinine 1.1, estimated GFR 51, glucose 98, calcium 8.4, albumin low at 2.2. B12 and folic acid levels normal. Iron and TIBC were both low with low iron saturation. On 01/07, the patient had been evaluated and cleared for transfer to the rehab unit on a heart healthy diet. Dakin solution, 4 x 4 to the left ischial buttock wound daily, vitamin D 50,000 units weekly, Venofer 200 mg IV for a total of 5 doses daily, famotidine 20 mg daily, bacitracin to the scalp wound daily, amlodipine 5 mg daily, entacapone 200 mg t.i.d., carbidopa/levodopa 25/100 two tabs t.i.d., zinc sulfate 220 mg daily, multivitamin 1 daily, aripiprazole 15 mg nightly, meclizine 25 mg t.i.d. p.r.n. dizziness, Zofran sublingual 4 mg q. 6 h. p.r.n. nausea, ibuprofen 800 mg q. 8 h. p.r.n. pain, furosemide 20 mg daily, diphenhydramine 25 mg q. 6 h. p.r.n. allergy, docusate 100 mg b.i.d., Tylenol 650 mg q.4 h. p.r.n. mild pain. After rehabilitation, she will return to [facility] where she has lived for over 20 years. FINAL DIAGNOSES: 1. Urosepsis -- Klebsiella. 2. Stage 4 decubitus ulcer, left ischium with osteomyelitis. 3. Parkinson's disease. 4. Spina bifida with bilateral leg weakness. 5. Developmental delay. 6. Diabetes mellitus type 2 with neuropathy, history of hepatitis C. 7. Chronic kidney disease stage 3. 8. History of hydrocephalus. 9. Colostomy. 10. Urostomy. 11. Unilateral nephrectomy. By: [id number] Garret Crouch, DO /nt
--- NOTE | ~2020-12-29 | EMS ---
[place] [id number] EMS Patient Care Report Name: AUDRA HARRIS Room #: 460-P ADM IN M.R.#: [id number] Admission: 12/29/20 Attend Phys: Steven Rodriguez MD, FAAF Discharge: Date of : 64 Report #: [id number] THIS REPORT FOR: //name// Report Transmitted: 01/02/2021 10:15 EMS Care Summary [place], [place]/[facility] Incident [id number] @ 12/29/2020 00:19 Incident Location [id number] [place] [address] Patient AUDRA HARRIS Female, 60 Years 1960 Patient Address [address] [place] [address] Patient History Epilepsy,Parkinson's Disease,Hyperlipidemia,Gastrointesinal Hemorrhage,Hepatitis C (Without Hepatic Coma),Anemia,Colostomy,Hydrocephalus,Spina Bifida, Chief Complaint abd pain Disposition Transported No Lights/[place] [facility] Reason Abdominal Pain/Problems Transported To [facility] Narrative pt found ambulatory [facility] the [place] [facility]. pt started to c/o abd pain to staff approx 2-3 hours ago. staff gave pt antacid w/o relief. pt states pain is constant and located near umbilicus. pt to be eval at [facility]. pt seats self on cot, transport w/o [place] [address] EMS Patient Care Report Name: AUDRA HARRIS Room #: 460-P [facility] IN ..#: [id number] Admission: 12/29/20 Attend Phys: Steven Rodriguez MD, FAAF Discharge: Date of : 64 Report #: [id number] @00:32P: 100,R: 28,BP: 129/55,Pain: 8/10,GCS: 14,SpO2: 98,Revised Trauma: 12, Assessments @00:25MENTAL:Other,Person Oriented,Place Oriented,Time Oriented,SKIN:No Abnormalities,HEENT:Head/Face: No Abnormalities,LUNG SOUNDS:General: Other,ABDOMEN:General: Other,PELVIS//GI:EXTREMITIES:PULSE:Radial: 2+ Normal,NEURO: Impression Abdominal Pain Procedures @00:28StretcherResponse: Unchanged Timeline 00:17,Call Received 00:17,Dispatch Notified 00:19,Dispatched 00:19,En Route 00:24,On Scene 00:25,At Patient 00:28,Stretcher,Response: Unchanged 00:30,Depart Scene 00:32,BP: 129/55 M,PULSE: 100,RR: 28 R,SPO2: 98 Ox,ETCO2: ,BG: ,PAIN: 8,GCS: 14, 00:37,At Destination 00:56,Call Closed Disclaimer v1.1 Copyright 2020 [employer] This EMS Care Summary contains data elements from the applicable legal record (which may be displayed differently). It is designed to provide pertinent information for the following purposes: continuity of care, clinical quality, and state data reporting. The complete legal record is available to ED staff and administrators of the receiving hospital in [facility]'s Patient Tracker. All data is provided "as is."
[~2020-12-29 00:39] MED LIST changes: -BACITRACIN ZINC28 GM TOP; -BENADRYL ALLERG25 MG PO; -CARBIDOPA-LEVO1 EAC9 PO; -DAKIN'S473 M1 TOP; -DELSYM COU30 MG/5 M1 PO; -ENTACAPONE200 M1 PO; -FAMOTIDINE 20 M20 MG PO; -FERREX 150 FORT1 CAP PO; -MAG-AL PLUS SUS30 ML PO; -MUPIROCIN1 GM TOP; -ONDANSETRON HCL4 M3 DISSOLVE; -PEPCID20 MG PO; -VENOFER200 MG/10 IVPB; -VITAMIN C500 M1 PO; -VITAMIN D21250 MCG PO; -ZINC SULFATE50 MG PO
[2020-12-29] MEDS ORDERED: FAMOTIDINE 20 M20 MG PO (00:41)
[2020-12-29] MEDS ORDERED: FERREX 150 FORT1 CAP PO (00:42)
[2020-12-29] MEDS ORDERED: VITAMIN C500 M1 PO (00:44)
[2020-12-29] MEDS ORDERED: DAKIN'S473 M1 TOP (00:46)
[2020-12-29] MEDS ORDERED: MUPIROCIN1 GM TOP (00:47)
[2020-12-29 00:48] VITALS: BP 146/58
[2020-12-29 01:46] LABS: URINE BILIRUBIN NEGATIVE (Negative); URINE BLOOD 1+ (Negative); URINE CLARITY CLOUDY; URINE COLOR YELLOW; URINE GLUCOSE-RANDOM* NEGATIVE (Negative); URINE KETONES TRACE (Negative); URINE LEUKOCYTES-REFLEX 3+ (Negative); URINE NITRITE-REFLEX NEGATIVE (Negative); URINE PROTEIN (DIPSTICK) 2+ (Negative); URINE SPECIFIC GRAVITY 1.015 (1.005-1.035); URINE UROBILINOGEN 0.2 E.U./dl (0.2-1.0)
[2020-12-29 01:51] LABS: ANION GAP 9 mmol/L (7-16); BUN 16 mg/dL (7-18); CALCIUM 8.7 mg/dL (8.5-10.1); CHLORIDE 102 mmol/L (98-107); CO2 27 mmol/L (21-32); CREATININE 1.2 mg/dL (0.6-1.0); GLUCOSE 117 mg/dL (74-106); POTASSIUM 3.9 mmol/L (3.5-5.1); SODIUM 138 mmol/L (136-145)
[2020-12-29 01:51] LABS: ABSOLUTE NEUTROPHILS 6.7 thou/uL (1.4-8.2); BASOPHILS 0.8 % (0.0-2.0); EOSINOPHILS 0.1 % (0.0-3.0); HEMATOCRIT 32.4 % (37.0-47.0); HEMOGLOBIN 10.3 gm/dL (12.0-15.0); LYMPHOCYTES 9.2 % (24.0-44.0); MCH 24.3 pg (26.0-34.0); MCHC 31.9 g/dL (28.0-37.0); MCV 76.3 fL (80.0-100.0); MONOCYTES 5.5 % (1.0-8.0); PLATELET COUNT 211 thou/uL (150-400); POLYS 84.4 % (36.0-66.0); RBC 4.25 mil/uL (4.20-5.00); RDW 20.7 % (10.5-14.5); WBC 7.9 thou/uL (4.0-11.0)
[2020-12-29 01:58] LABS: ALBUMIN 2.8 g/dL (3.4-5.0); DIRECT BILIRUBIN < 0.1 mg/dL (<0.1-0.2); SGOT 50 U/L (15-37); SGPT 8 U/L (14-59); TOTAL BILIRUBIN 0.5 mg/dL (0.2-1.0); TOTAL PROTEIN 7.5 g/dL (6.4-8.2)
[2020-12-29 02:07] LABS: BACTERIA-REFLEX >30 Many /HPF (None Seen); CASTS None Seen /LPF (None Seen); CRYSTALS None Seen /LPF (None Seen); MUCUS 0-3 Light strn/LPF (None Seen); SQUAMOUS 4-10 Moderate /LPF (0-3); URINE RBC 3-10 Few /HPF (NONE SEEN); URINE WBC-REFLEX >25 Many /HPF (0-5); WBC CLUMPS Moderate (None Seen)
[2020-12-29 07:27] VITALS: BP 125/67
[2020-12-29 07:43] VITALS: BP 115/63
[2020-12-29 07:55] VITALS: BP 117/59
--- NOTE | 2020-12-29 12:11 | NUR ---
MET WITH PATIENT WHO IS A/OX4. PATIENT WITH HX OF SPINA BIFIDA, UROSTOMY AND COLOSTOMY. SHE HAS HX OF HH WITH [facility] IN PAST. PATIENT RESIDES AT [facility]. SHE REPORTS SHE USES A WALKER IN HOME. THEY ASSIST WITH MEDICATIONS, MEALS AND TRANSPORT. [facility] FIREARMS INSTRUCTOR IS SARTHAK, LEFT MESSAGE FOR [facility]THAK. PLAN HOME ONCE STABLE. [facility] FOLLOWING.
[2020-12-29 16:58] VITALS: BP 118/50
[2020-12-29 19:10] VITALS: BP 124/56
--- NOTE | 2020-12-29 19:23 | NUR ---
Recived pt from the ER, VS stable. Has a colostomy draining dark green stool and an ileostomy draining yellowis fluid. Pt has wounds on her bottom (from previous admission) and some skin tears on her leg. Diet and medications are tolerated well. Incontinent of urine, foul smelling. POC followed with no signs or verbalixations of distress noted. Heels off loaded and heel protectors placed. Endorsed to the night nurse.
--- NOTE | 2020-12-30 02:48 | NUR ---
ASSUMED PT CARE AT 1920. PT IS ALERT AMD ORIENTED X4. PT IS PLEASANT AND COOPERATIVE. PT HAS UROSTOMY RUQ AND COLOSTOMY LUQ WHICH HAVE NO SIGN OF SWELLING OR REDNESS AROUND THE STOMAS. PT REQUESTED TO HAVE PERFO BOOTS ON WHILE IN BED. PT WAS TUNRED Q2HRS. PT IS TOLERATING RA. BED ON LOWEST LOCKED POSITION WITH BED ALARM ON AND CALL LIGHT WITHIN REACH.
[2020-12-30 07:45] VITALS: BP 120/67
[2020-12-30 08:01] VITALS: BP 120/60
--- NOTE | 2020-12-30 08:46 | NUR ---
OSTOMY CARE; ALERT, AWAKE, COOPERATIVE, VERY PLEASANT, WELL KNOWN TO THIS 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 BEEN MANAGING WOUNDS AND OSTOMY, STATES SHE HAD HOME HEALTH SHORT TERM BUT HOME HEALTH NEVER TREATED COLOSTOMY GRANULOMAS W/ SILVER NITRATE AND NEVER F/U W/ COLON RECTAL SURGEON DUE TO COVID, GRANULAMOS STILL PRESENT COLOSTOMY STOMA ONLY, MILD BLEEDING NOTED, TREATED W/ SILVER NITRATE AND NEW POUCH JOANNA 2 PIECE SYSTEM APPLIED W/ ADAPT RING UNDER WAFER, PERISTOMAL SKIN OTHERWISE INTACT, NEW POUCH TO UROSTOMY STOMA, STOMA PINK VIABLE, SLIGHTLY CLOUDY YELLOW URINE NOTED, CONNECTED TO DEP DRAINAGE, DARK SOFT FORMED STOOL NOTED PER COLOSTOMY, PHOTO TAKEN OF COLOSTOMY STOMA AND PLACED IN CHART, WILL DISCUSS W/ DR AGGARWAL SUPPLIES PLACED AT RECOMMENDATIONS; CHANGE POUCHES Q 3-5 DAYS AND PRN, EMPTY PRN, SILVER NITRATE PRN GRANULOMAS COLOSTOMY STOMA BLEEDING BED BUG EXTERMINATOR AWARE CHANGE POUCHES Q 3-5 DAYS AND PRN, EMPTY PRN
--- NOTE | 2020-12-30 12:51 | NUR ---
WOUND CONSULT; ROUNDING WITH DR ALVAREZ TODAY. THE LEFT ISCHIUM WAS ASSESSED. SOME MASCERATION TO THE PERIWOUND OTHERWISE STABLE W/ NO S/S OF INFECTION. PATIENT IS UP IN A CHAIR AND CAN STAND ON HER OWN WITH A WALKER. NO CHANGES TO POC.
--- NOTE | 2020-12-30 14:00 | NUR ---
Nutrition: pt admitted with abdominal pain. Hx colostomy, urostomy, chronic wound with osteo. Wound care following for stage 4 left ischial wound. Pt eats very well, 100% of meals. Protein needs reviewed. Agrees to ensure enlive BID as she does at facility. On Zinc sulfate, rec add vitamin C for wound healing. Current weight down 28# since June. Pt reported intentional weight loss due to increased hernia pain-weight loss was encouraged to reduce. Consider low risk with interventions in place.
[2020-12-30 16:13] VITALS: BP 135/78
--- NOTE | 2020-12-30 16:52 | NUR ---
DR. AGGARWAL INDICATED THAT PT MAY BE MEDICALLY STABLE TO DC OVER THE WEEKEND BACK TO [facility]. [facility] CAN'T ACCEPT PT. FAXED REFERRAL TO [facility] AND THEY CAN ACCEPT PT FOR SERVICES UPON DC. THEY REACHED OUT TO SARTHAK AND LEFT VM. SHOULD PT BE DC READY OVER WEEKEND CALL SARTHAK AND FAX ORDERS TO [facility] AT .
[2020-12-30 19:24] VITALS: BP 126/67
--- NOTE | 2020-12-30 19:57 | NUR ---
Assumed pt care this am, vs stable. Pt was able to work with PT and OT. diet and medications are tolerated well. Wound care and dressing change endorsed to the night nurse. POC followed with no signs or verbalizations of distress noted.
--- NOTE | 2020-12-31 02:03 | NUR ---
ASSUMED PT CARE AT 1910. PT IS ALERT AND ORIENTED X4. PT HAS A TUNNELLING WOUND ON THE R BUTTOCK. DRESSING CHANGE DONE ORDERED WITH REVA; WET TO DRY. PT WAS GIVEN PAIN MED PRIOR TO THE DRESSING. PT WAS COOPERATIVE AND DID NOT HAVE ANY COMPLAINS. SKIN AROUND UROSTOMY AND COLOSTOMY IS INTACT. PT TAKES MEDS WHOLE WITHOUT ANY ISSUES. PT TOLERATING RA. FALL PRECAUTIONS IN PLACE AND CALL LIGHT WITHIN REACH. WILL CONTINUE TO MONITOR.
[2020-12-31 07:20] VITALS: BP 118/66
[2020-12-31 16:10] VITALS: BP 141/67
--- NOTE | 2020-12-31 16:11 | H ---
[facility] [place] [address] HISTORY AND PHYSICAL Name: AUDRA HARRIS Room #: 460-P ADM IN M.R.#: [id number] Admission: 12/29/20 Attend Phys: Steven Rodriguez MD, FAAF Discharge: Date of : 64 Report #: [id number] THIS REPORT FOR: cc: Steven Rodriguez MD FAAFP FACEP Steven Rodriguez MD FAAFP FACEP RodriguezSteven kumar MD FAAFP FACEP ~ CHIEF COMPLAINT: Urosepsis; left ischial wound. HISTORY OF PRESENT ILLNESS: The patient is a 60-year-old white female, a patient of mine for years with complex medical problems including spina bifida, hydrocephalus, diabetes, seizure disorder, urostomy and colostomy. [facility] She became ill on the day of this admission with mental status changes and was evaluated in the Emergency Department at [facility] and found to be septic associated with a urinary tract infection and had osteomyelitic changes on CT scan associated with her left chronic buttock ulcer. She was admitted for IV antibiotics and wound care consult. PAST MEDICAL HISTORY: Colostomy, GI bleed, epilepsy with seizures, spina bifida, hydrocephalus, mild mental delay, hepatitis C, anemia, mood disorder, hyperlipidemia, eczema, GERD, asthma, MRSA in 2004 in sputum, in 2006 left chest wound. Urostomy due to 1 kidney and bladder, removed due to infections. Hysterectomy, had a uterine tumor. Multiple hernia surgeries. Polyps removed from colostomy stoma. Diabetes, Parkinson's disease, ileostomy, diverting colostomy, self-mutilation. MEDICATIONS: Stalevo, which is carbidopa/levodopa, entacapone 200 mg 1 p.o. t.i.d., Maalox 30 mL p.o. q.6 hours p.r.n. indigestion, Abreva 10 cream apply topically 5 times daily to affected area, meclizine 25 mg 1 p.o. t.i.d. p.r.n. dizziness, Lasix 20 mg 1 p.o. a.m. p.r.n. fluid retention, iron polysaccharide complex, Ferrex 150 mg 1 p.o. daily, nystatin 15 gram powder topically b.i.d. to affected skin, Delsym 10 mL p.o. daily p.r.n. cough, amlodipine 5 mg 1 p.o. daily, Comtan which is entacapone 200 mg p.o. t.i.d., famotidine 20 mg 1 p.o. daily, vitamin C 500 mg 1 p.o. daily, Dakin solution topically daily to wound, mupirocin topically daily to wound twice daily, imipramine 3 tabs p.o. at bedtime, vitamin D 50,000 International Units p.o. weekly on Saturdays, Benadryl 25 mg 1 p.o. q.6 hours p.r.n. itch, zinc sulfate 220 mg 1 p.o. at bedtime, multivitamins Theragran-M with iron 1 p.o. at bedtime, Abilify 15 mg 1 p.o. at bedtime. ALLERGIES: LATEX, ADHESIVE TAPE. No known drug allergies. SOCIAL HISTORY: Nonsmoker, nondrinker, lives in a nursing home, is disabled. FAMILY HISTORY: Noncontributory. [facility] [address] [place] [address] HISTORY AND PHYSICAL Name: AUDRA HARRIS Room #: 460-P ADM IN .R.#: [id number] Admission: 12/29/20 Attend Phys: Steven Rodriguez MD, FAAF Discharge: Date of : 64 Report #: [id number] REVIEW OF SYSTEMS: Generally, no fever, chills, nausea, vomiting, diarrhea. EYES: No visual changes. ENT: No problems with hearing, swallow, taste or smell. CARDIOVASCULAR: No chest pain or palpitations. RESPIRATORY: No difficulty breathing. GASTROINTESTINAL: No abdominal pain. GENITOURINARY: UTI with urostomy. MUSCULOSKELETAL: Poorly mobile. NEUROLOGIC: She does have some mental changes with somnolence. Spina bifida, Parkinson's disease. There are large left buttock wound. PSYCHIATRIC: No feelings of depression or abnormal concerning thoughts. Remainder of system review is negative. OBJECTIVE: VITAL SIGNS: Temperature 36.6, pulse 88, respirations 11, blood pressure 146/58, pulse ox on room air is 100%. GENERAL: She is in no acute distress, appears fatigued. HEENT: Pupils equal, round, reactive to light and accommodation. Extraocular muscles intact. Pharynx unremarkable. NECK: Supple. COR: S1, S2. CHEST: Clear. ABDOMEN: Soft, nontender. Functioning colostomy and urostomy tube. EXTREMITIES: No edema. SKIN: Large left buttock wound with clean and dry dressings presently. LABORATORY EVALUATION: CBC: White count 7.9, hemoglobin 10.3, hematocrit 32.4, platelets 211,000. Differential white count 84.4, segmented neutrophils, 9.2% lymphocytes, 5.5% monocytes. Serum chemistry: Sodium 138, potassium 3.9, chloride 102, CO2 of 27, BUN 16, creatinine 1.2, estimated glomerular filtration rate is 46. Glucose 117; lactate 3.7, drops to 1.2 after 2 liters of fluid; calcium is 8.7, total bilirubin 0.5, direct bilirubin less than 0.1. AST is 50, ALT is 8, alkaline phosphatase is 164. Urine is cloudy, pH is 7.0, yellow in color, specific gravity 1.015, 2+ protein is seen, trace ketones, 1+ blood, no nitrite, no bilirubin, urobilinogen 0.2, leukocyte esterase 3+, RBCs 3-10; a few white cells, greater than 25, many per high powered field; moderate WBC clumps; 4-10 squamous epithelial cells; no crystals; greater than 30 bacteria per high powered field, no casts and 0-3 light mucus is noted. RADIOGRAPHIC STUDIES: An x-ray portable done from the Emergency Department showed no acute cardiopulmonary process. ASSESSMENT: Sepsis from urinary tract infection, left buttock decubitus ulcer [facility] [address] [place] [address] HISTORY AND PHYSICAL Name: AUDRA HARRIS Room #: 460-P [facility] IN ..#: [id number] Admission: 12/29/20 Attend Phys: Steven Rodriguez MD, FAAF Discharge: Date of : 64 Report #: [id number] with associated osteomyelitis, spina bifida, urostomy, colostomy, anemia. PLAN: Antibiotics started in the Emergency Room. We will continue Rocephin. Culture urine and blood. We will consult ____ regarding exuberant granulations to the urostomy stoma site. <ELECTRONICALLY SIGNED> By: Steven Rodriguez MD, PATRICK, FACEP 12/31/20 1611 [id number] [id number] Steven Rodriguez MD, PATRICK, FACEP /nt
--- NOTE | 2020-12-31 16:44 | NUR ---
Assumed pt care this am, vs stable. diet and medication tolerated well. Urostomy and colostomy in place and patent. Wound dressings c/d/i, preferred for dressing to be changed in the pm. Seen by surgery for colostomy stoma granulations. POC followed with no signs or verbalizations of distress noted./
[2020-12-31 20:34] VITALS: BP 142/70
--- NOTE | 2021-01-01 01:46 | NUR ---
ASSUMED PT CARE AT 1915. PT IS ALERT AND ORIENTED X4. WOUND DRESSING CHANGED AND PT WAS GIVEN PAIN MED PRIOR TO DRSG CHANGE. PT DID NOT COMPLAIN OF ANY PAIN DURING DRSG CHANGE. PT HAS A TUNNELLING WOUND TO THE SACRUM WHICH IS WELL APPROXIMATED. PT HAS REDNESS TO THE BUTTOCKS. PT IS TURNED Q2HRS. PT IS COOPERATIVE AND PLEASANT. SKIN AROUND THE UROSTOMY AND COLOSTOMY IS INTACT WITH NO SIGN OF REDNESS. FALL PRECAUTIONS IN PLACE WITH CALL LIGHT WITHIN REACH.
[2021-01-01 08:51] VITALS: BP 137/77
[2021-01-01 14:42] VITALS: BP 145/74
--- NOTE | 2021-01-01 19:38 | NUR ---
Assumed pt care this am, VS stable. diet and medications tolerated well. Urostomy and colostomy patent. Colostomy for cuterization tomorrow at the bedside. POC followed with no signs or verbalizations of distress noted. Endorsed to the night nurse.
[2021-01-01 20:12] VITALS: BP 140/76
--- NOTE | 2021-01-02 04:51 | NUR ---
Pt. rested quietly at intervals during the night when checked on during frequent rounds. She c/o some pain and po pain med given (see emar) with some relief noted. Dressing changed to wound as ordered. Bed alarm is on.
[2021-01-02 07:15] VITALS: BP 123/65
--- NOTE | 2021-01-02 07:34 | NUR ---
OSTOMY CARE; ALERT, AWAKE, COOPERATIVE, CHANGED UROSTOMY POUCH W/ JOANNA PRE CUT CONVEX 1 06/24' APPLIANCE, STOMA RED VIABLE W/ CLEAR YELLOW URINE NOTED, ADAPT RING APPLIED UNDER WAFER, PERISTOMAL SKIN INTACT, SOFT BROWN STOOL PER COLOSTOMY, DR BRANHAM TO SEE TODAY FOR GRANULOMAS, WILL WAIT TO CHANGE COLOSTOMY APPLIANCE UNTIL SEEN BY SURGEON, SUPPLIES AT BS, WILL CONT TO FOLLOW RECOMMENDATIONS; CHANGE POUCHES Q 3-5 DAYS AND PRN, EMPTY PRN SOCIAL WORK NURSE AWARE
--- NOTE | 2021-01-02 14:00 | HC ---
[facility] [place] [address] CONSULTATION Name: AUDRA HARRIS Room #: 460-P [facility] IN ..#: [id number] Admission: 12/29/20 Attend Phys: Steven Rodriguez MD, [facility] Discharge: Date of : 64 Report #: [id number] THIS REPORT FOR: cc: Steven Rodriguez MD [facility] Steven Rodriguez MD [facility] Ronak Lopez MD ~ DATE OF SERVICE: 12/29/2020 WOUND CARE CONSULTATION PERSONAL PHYSICIAN: Dr. Steven Rodriguez. CHIEF COMPLAINT: Left ischial decubitus ulcer, stage 4. HISTORY OF PRESENT ILLNESS: This is a 60-year-old white female with a history of spina bifida and hydrocephalus, who I have been following for left ischial decubitus ulcer for several months. The patient has now had been admitted for urosepsis. The patient was complaining of abdominal pain, but had no nausea or vomiting. The patient states that she has been having no difficulty actually with her ischial ulcer. The patient denies any other new wounds except for the nurses state that there were several taped air surrounding the original wound. The patient denies any actual fevers or chills. The patient denies any pain associated with the wound at this time. PAST MEDICAL HISTORY: Significant for previous colostomy, epilepsy with seizures, spina bifida, hydrocephalus, hepatitis C, chronic left ischial decubitus ulcer stage 4, urostomy, diabetes, Parkinson's. CURRENT MEDICATIONS: Multiple, I reviewed the patient's medication list. DRUG ALLERGIES: ADHESIVE TAPE, LATEX, BUT NO KNOWN DRUG ALLERGIES. SOCIAL HISTORY: The patient resides in a halfway, which she has for several years. The patient's caregiver is very responsive to her needs. The patient denies alcohol or tobacco use. FAMILY HISTORY: Not pertinent to current medical condition. REVIEW OF SYSTEMS: CONSTITUTIONAL: The patient denies fevers or chills. NEUROLOGIC: The patient complains of mild generalized weakness, but no isolated weakness in arms or legs. EYES: No complaints. EARS, NOSE AND THROAT: No complaints. CARDIAC: The patient denies chest pain, palpitations, peripheral edema. RESPIRATORY: The patient denies shortness of breath, cough or wheezes. [address] [address] CONSULTATION Name: AUDRA HARRIS Room #: 460-P [facility] IN ..#: [id number] Admission: 12/29/20 Attend Phys: Steven Rodriguez MD, FAAF Discharge: Date of : 64 Report #: [id number] GASTROINTESTINAL: The patient complains of abdominal pain which has now since resolved, but no nausea or vomiting. The patient's colostomy is functioning appropriately. GENITOURINARY: The patient denies urgency or frequency. Does have urostomy tube. MUSCULOSKELETAL: No complaints. SKIN: The patient has a stage 4 decubitus ulcer in the left ischial tuberosity with surrounding superficial skin tears. PHYSICAL EXAMINATION: VITAL SIGNS: Temperature 36.5, pulse 71, respirations 22, BP 117/59. GENERAL: This is alert and oriented x3, pleasant white female who is in absolutely no distress. HEENT: Normocephalic and atraumatic. Mucous membranes are somewhat dry. Pupils are round. Sclerae white. NECK: Without JVD. LUNGS: Clear. HEART: Regular. ABDOMEN: Soft, nontender. Ostomy is in place and functioning. SKIN: Evaluation of left ischial region reveals a stage 4 decubitus ulcer with bone palpable; however, it is covered with a thin layer of granulation tissue. There is no bony spicules found, palpable. There is moderate amount of serosanguineous drainage noted without significant odor. Periwound is otherwise intact except for 4 discrete areas of superficial skin tears. There are no signs of erythema, warmth or cellulitis. EXTREMITIES: The patient moves all extremities without difficulty. Bilateral heels are intact. Of note, the patient has a previous skin graft on the right heel, which mimics a deep tissue injury, but this is not a pressure injury. NEUROLOGIC: Cranial nerves 2-12 are grossly intact. Motor and sensory are grossly intact. LABORATORY DATA: White count 7.9, hemoglobin 10.3. BUN 16, creatinine 1.2, albumin 2.8. DIAGNOSTIC DATA: CT scan of the abdomen and pelvis does show irregularity in the left ischial region with sclerosis, which may represent a chronic infection. IMPRESSION: 1. Stage 4 left ischial decubitus ulcer - chronic without signs of overt infection. 2. Urosepsis. 3. Generalized debility with a history of spina bifida and hydrocephalus. 4. Protein calorie malnutrition - moderate with albumin 2.8. PLAN: At this time, we will use Dakin's moist gauze packed into the left [facility] [address] [place] [address] CONSULTATION Name: AUDRA HARRIS Room #: 460-P ADM IN M.R.#: [id number] Admission: 12/29/20 Attend Phys: Steven Rodriguez MD, FAAF Discharge: Date of : 64 Report #: [id number] ischial ulcer daily, covered with ABD. Put the patient on low air loss surface, having turned every 2 hours. We will make sure she has heel protection on at all times. We will make sure we maximize the patient's oral supplementation of protein for healing. We will utilize physical and occupational therapy for strengthening. IV antibiotics will be managed by the medical team at this time. We will continue all other current medications. <ELECTRONICALLY SIGNED> By: Ronak Lopez MD 01/02/21 1400 [id number] 0116 Ronak Lopez MD /nt
--- NOTE | 2021-01-02 14:52 | NUR ---
WC AND SURGERY CONSULTED RELATED TO POSSIBLE OSTEO.. MAY BE HAVING SURGICAL INTERVENTION RELATED TO HER STOMA SITE. [facility] FOLLOWING FOR SERVICES UPON DISCHARGE ONCE MEDICALLY STABLE.
--- NOTE | 2021-01-02 17:07 | NUR ---
Assumed pt care this am, VS stable. Diet and medications tolerated well. Colostomy bag changed, urostomy care done by wound care nurse. Stayed on the recliner for meal. Wound care and dressing changes done. POC followed with no signs or verbalizations of distress noted.
[2021-01-02 19:13] VITALS: BP 131/71
--- NOTE | 2021-01-03 03:58 | NUR ---
Pt. rested quietly during the night when checked on during frequent rounds. She was given po tylenol prior to dressing change (see emar). Dressing done to wounds and pt. repositioned. Bed alarm is on.
[2021-01-03 07:20] VITALS: BP 120/61
[2021-01-03 14:00] VITALS: BP 126/70
--- NOTE | 2021-01-03 14:33 | NUR ---
CARE TEAM PLANNING POSSIBLE I&D AND CAUTERIZATION ON SATURDAY. CM FOLLOWING REGARDING DC PLANNING.
--- NOTE | 2021-01-03 19:53 | NUR ---
Assumed pt care vs stable. Diet and medications are tolerated well. Wound care and dressing change done. POC followed with no singso r verbalizations of distress noted. Enmdorsed to the night nurse.
[2021-01-03 20:07] VITALS: BP 124/65
--- NOTE | 2021-01-04 05:52 | NUR ---
Assumed pt care at 1900. A/OX3,VSS. Denies pain on assessment. Urostomy/colostomy in place and patent. Wound care to left ischium done without any problems. Fall precautions in place,calls approp for help. Will continue to monitor pt.
[2021-01-04 07:45] VITALS: BP 122/67
[2021-01-04 16:23] VITALS: BP 90/40
--- NOTE | 2021-01-04 18:17 | NUR ---
ASSUMED CARE OF PATIENT AT SHIFT CHANGE. ASSESSMENT CHARTED. MEDS ADMINISTERED PER EMAR. VSS. PATIENT IS ALERT AND ORIENTED AND MAKES NEEDS KNOWN. TOLERATED PO INTAKE WELL. OSTOMY CARE DONE THIS SHIFT. PATIENTS IV WENT INFILTRATED THIS SHIFT; DR. AGGARWAL NOTIFIED AND ORDER FOR MIDLINE PLACED. PATIENT DENIES PAIN; WORKED WITH PT/OT AND TOLERATED WELL. I&D STILL MAYBE TO BE DONE Saturday01/07/21. PATIENT ABLE TO REPOSITION. FALL PRECAUTIONS IN PLACE. WILL CONTINUE TO MONITOR AND ENDORSE TO NOC. RN
--- NOTE | 2021-01-04 19:47 | NUR ---
VAT CONSULTED FOR MIDLINE. PT'S LABS,MEDS,HX REVIEWED. MARGARET BRACHIAL WAS WIDELY PATENT WITH USG. 4FR POWER MIDLINE TRIMMED TO 10CM INSERTED TO 0CM X 1 STICK. PT TOLERATED WELL. ML RELEASED FOR IMMEDIATE USE PER PROTOCOL.
[2021-01-04 19:55] VITALS: BP 128/66
[2021-01-05 05:36] LABS: HEMATOCRIT 26.5 % (37.0-47.0); HEMOGLOBIN 8.7 gm/dL (12.0-15.0); MCHC 32.6 g/dL (28.0-37.0); MCV 76.6 fL (80.0-100.0); RBC 3.46 mil/uL (4.20-5.00); RDW 20.8 % (10.5-14.5); WBC 4.3 thou/uL (4.0-11.0)
--- NOTE | 2021-01-05 05:56 | NUR ---
Assumed pt care at 1900. A/OX3-4, VSS. Denies pain on assessment. Repositioned as tolorated. Colostomy/urostomy patent. Pt has been NPO since midnight for I&D today. Wound care donw w/o any problems. Fall precautions in place,calls approp for help. Resting quietly at this time,will continue to monitor pt.
[2021-01-05 06:49] LABS: ALBUMIN 2.2 g/dL (3.4-5.0); CALCIUM 8.4 mg/dL (8.5-10.1); CREATININE 1.1 mg/dL (0.6-1.0); POTASSIUM 4.6 mmol/L (3.5-5.1); TOTAL BILIRUBIN 0.2 mg/dL (0.2-1.0); TOTAL PROTEIN 6.3 g/dL (6.4-8.2)
[2021-01-05 08:10] VITALS: BP 125/64
--- NOTE | 2021-01-05 09:18 | NUR ---
OSTOMY CARE; POUCH EDGES LOOSE UROSTOMY STOMA, CHANGED USING 2 PIECE SYSTEM JOANNA 1 06/24'CONVEX,STOMA PINK VIABLE, PERISTOMAL SKIN INTACT, URINE CLEAR YELLOW, CONNECTED TO DEP DRAINAGE SYSTEM, COLOSTOMY POUCH INTACT, NO LEAKAGE, NOT CHANGED DUE TO SURGERY TODAY TO TREAT GRANULOMAS. PT ALERT, COOPERATIVE, SUPPLIES AT BS RECOMMENDATIONS; CHANGE POUCHES Q 3-5 DAYS AND PRN, EMPTY PRN SPRING UP SUPERVISOR AWARE
[2021-01-05 14:28] VITALS: BP 123/63
--- NOTE | 2021-01-05 14:49 | NUR ---
PT HAD I&D AND CAUTERIZATION THIS DAY. IT IS ANTICIPATED THAT PT IS TO DC BACK TO [facility] WITH [facility] ONCE MEDICALLY STABLE. CM TO FAX UPDATES TO SARTHAK. CM FOLLOWING REGARDING DC PLANNING.
--- NOTE | 2021-01-05 18:06 | NUR ---
ASSUMED CARE OF PATIENT AT SHIFT CHANGE. ASSESSMENT CHARTED. MEDS HELD PER NPO STATUS FOR PROCEDURE. NO REMARKABLE CHANGES ON PATIENT; PATIENT RETURNED FROM PACU AT APPROX. 1420. PATIENT VOICED MINIMAL PAIN AND DID NOT REQUEST PAIN MEDICATION. OSTOMY IS INTACT WITH BM AROUND SITE; NO BLEEDING OR OTHER DRAINAGE NOTICED. VITALS REMAIN STABLE. WOUND ON BOTTOM ALSO REMAINS C/D/I. PATIENT VOICING NO FURTHER NEEDS. WILL CONTINUE FREQUENT MONITORING
[2021-01-05 20:15] VITALS: BP 119/67
--- NOTE | 2021-01-06 06:00 | NUR ---
Assumed pt care at 1900. A/OX4,VSS. Denies pain on assessment. Post I&D on left ischium wound,dsg C/D/I.Repositioned as tolorates. Urostomy/colostomy in place and patent. AJ midline sl. NSR on telemetry. Fall precautions in place,will continue to monitor pt.
[2021-01-06 07:37] VITALS: BP 108/57
--- NOTE | 2021-01-06 08:56 | NUR ---
Followup: chronic wound with osteomyelitis. Pending debridement left buttock. Has been eating 100% of meals this admission and drinking ensure enlive. ? 170 lb wt as previous wt 150 lb. On zinc sulfate. Nutrition needs being met with excellent po intake. Low nutrition risk
[2021-01-06 10:31] LABS: % SATURATION 15 % (20-39); IRON 37 ug/dL (50-170); TIBC 255 ug/dL (250-450)
--- NOTE | 2021-01-06 11:28 | NUR ---
PT HAD I&D AND CAUTERIZATION YESTERDAY. DR. AGGARWAL INDICATED THAT PT MAY BE MEDICALLY STABLE TO DC BACK TO [facility] OVER THE WEEKEND. NOTIFIED [facility] OF POSSIBLE WEEKEND DC. CM CALLED AND SPOKE WITH SARTHAK AND SHE IS AWARE AND AGREEABLE WELL. PT IS TO TRANSITION TO [facility] UPON DC. PT IS TO HAVE [facility] PT, OT, AND NURSING. CM FAXED CLINIAL UPDATE TO [facility] AND TO SARTHAK. UPON DC FAX DISCHARGE ORDERS TO: [facility] FAX: P: AND TO [facility] AT FAX: . CHART COPY SHOULD BE MADE AND SENT WITH PT WELL PLEASE. PT WILL NEED [facility] CALL TO GO TO [id number] [place] [phone]. CALL AND NOTIFY SARTHAK OF TIME OF TRANSFER.
--- NOTE | 2021-01-06 15:39 | NUR ---
No complaints of pain currently. Ileostomy and colostomy bag ar dry, clean, and intact. Yarbrough patent. One assist with transfers. Had 2 visitors from the senior care today.
[2021-01-06 15:43] VITALS: BP 141/88
[2021-01-06 20:24] VITALS: BP 122/68
[2021-01-07] MEDS ORDERED: VENOFER200 MG/10 IVPB (07:46)
[2021-01-07] MEDS ORDERED: NORVASC5 MG PO (07:51)
[2021-01-07] MEDS ORDERED: BENADRYL ALLERG25 MG PO (07:51)
[2021-01-07] MEDS ORDERED: IBUPROFEN 800800 M1 PO (07:52)
[2021-01-07] MEDS ORDERED: TYLENOL EXTRA500 MG PO (07:52)
[2021-01-07] MEDS ORDERED: ENTACAPONE200 M1 PO (07:52)
[2021-01-07] MEDS ORDERED: DAKIN'S473 M2 IRRIG (07:53)
[2021-01-07] MEDS ORDERED: CARBIDOPA-LEVO1 EAC9 PO (07:53)
[2021-01-07] MEDS ORDERED: ZINC SULFATE50 MG PO (07:54)
[2021-01-07] MEDS ORDERED: LASIX 20 MG TAB20 MG PO (07:54)
[2021-01-07] MEDS ORDERED: MAG-AL PLUS SUS30 ML PO (07:55)
[2021-01-07] MEDS ORDERED: DELSYM COU30 MG/5 M1 PO (07:55)
[2021-01-07] MEDS ORDERED: ONDANSETRON HCL4 M3 DISSOLVE (07:55)
[2021-01-07] MEDS ORDERED: PEPCID20 MG PO (07:56)
[2021-01-07] MEDS ORDERED: BACITRACIN ZINC28 GM TOP (07:56)
[2021-01-07] MEDS ORDERED: ABREVA2 GM TOP (07:56)
[2021-01-07] MEDS ORDERED: VITAMIN D21250 MCG PO (07:57)
--- NOTE | 2021-01-07 08:11 | NUR ---
Assumed pt care at 1900. A/OX4,VSS.Denies pain on assessment. Wound care to left ischium done w/o problems. Colostomy/urostomy patent with adequate output noted. NSR on telemetry. Fall precautions in place,calls approp for help. Midline patent on RUE.
[2021-01-07 09:26] VITALS: BP 118/62
--- NOTE | 2021-01-07 12:21 | NUR ---
ASSUMED PT CARE THIS AM. PT A&OX4, ABLE TO MAKE NEEDS KNOWN. PATIENT IS PLEASANT AND COOPERATIVE WITH STAFF. IV REMAINS PATENT, MEDICATIONS INFUSING WITHOUT ISSUE. PATIENT HAS A COLOSTOMY AND A UROSTOMY. PATIENT REPORTS NO PAIN. TREMORS NOTICED IN HANDS AT REST. PATIENT IS ON ROOM AIR. FALL PRECAUTIONS ARE IN PLACE, CALL LIGHT WITHIN REACH.
== END 2021-01-07 18:25 | DRG 853 ==
LOC: ER 00:39 → 4W 04:20 → EROBS 04:20 → 4W 04:20
PROVIDERS: Emergency Medicine; ADMIT Family Medicine; ATTEND Family Medicine
PROC: 05H933Z Insertion of Infusion Device into Right Brachial Vein, Percutaneous Approach (ICD-10-PCS; principal; 2021-01-04)
PROC: 0QB30ZZ Excision of Left Pelvic Bone, Open Approach (ICD-10-PCS; 2021-01-05)
DX: A41.9 Sepsis, unspecified organism (principal); L89.324 Pressure ulcer of left buttock, stage 4; T83.511A Infection and inflammatory reaction due to indwelling urethral catheter, initial encounter; E44.0 Moderate protein-calorie malnutrition; M86.8X8 Other osteomyelitis, other site; Z20.822 Contact with and (suspected) exposure to COVID-19; E78.5 Hyperlipidemia, unspecified; K21.9 Gastro-esophageal reflux disease without esophagitis; J45.909 Unspecified asthma, uncomplicated; R65.20 Severe sepsis without septic shock; Y83.8 Other surgical procedures as the cause of abnormal reaction of the patient, or of later complication, without mention of misadventure at the time of the procedure; R53.81 Other malaise; G20 Parkinson's disease; N18.30 Chronic kidney disease, stage 3 unspecified; E11.40 Type 2 diabetes mellitus with diabetic neuropathy, unspecified; B96.1 Klebsiella pneumoniae [K. pneumoniae] as the cause of diseases classified elsewhere; L92.9 Granulomatous disorder of the skin and subcutaneous tissue, unspecified; E11.69 Type 2 diabetes mellitus with other specified complication; E11.22 Type 2 diabetes mellitus with diabetic chronic kidney disease; S00.01XA Abrasion of scalp, initial encounter; D50.9 Iron deficiency anemia, unspecified; G40.909 Epilepsy, unspecified, not intractable, without status epilepticus; M21.372 Foot drop, left foot; Z93.3 Colostomy status; Z86.19 Personal history of other infectious and parasitic diseases; Z86.14 Personal history of Methicillin resistant Staphylococcus aureus infection; Z90.710 Acquired absence of both cervix and uterus; Z93.2 Ileostomy status; Z88.8 Allergy status to other drugs, medicaments and biological substances; Z91.040 Latex allergy status; Y92.89 Other specified places as the place of occurrence of the external cause; Z68.31 Body mass index [BMI] 31.0-31.9, adult; Q05.9 Spina bifida, unspecified
CPT/HCPCS: 10045; 27000; 50010; 50101; 62110; 62900; 70005

== ENCOUNTER 2021-01-07 10:51 | Inpatient (IN) | payer OTHER ==
[~2021-01-07] VITALS: Ht 160 cm; Wt 68.9 kg
--- NOTE | ~2021-01-07 | PLAN ---
[facility] [place] [address] REHAB UNIT PLAN OF CARE Name: AUDRA HARRIS Room #: 509-P ADM IN M.R.#: [id number] Admission: 01/07/21 Attend Phys: Alli Guzmán MD Discharge: Date of : 64 Report #: [id number] THIS REPORT FOR: cc: Steven Rodriguez MD, FAAFP, FACEP, Douglas MD [facility] Alli Benitez MD ~ DATE OF SERVICE: 01/09/2021 PROGRESS NOTE/OVERALL PLAN OF CARE HISTORY OF PRESENT ILLNESS: The patient was seen back in followup. She was in no distress. Temperature 36.7, pulse 80, respirations 20, blood pressure 109/60. No focal calf swelling. No focal changes on neuro exam. She is pleasant, appears alert and motivated. Transfers are mod assist. She did ambulate 4 feet max assist in the parallel bars today. In occupational therapy, she is requiring max assist for lower body dressing, min assist for upper body dressing. ASSESSMENT: 1. Parkinson's disease. She does have the resting tremulousness and some cogwheeling of elbows and wrists. 2. Spina bifida with bilateral lower extremity weakness, left more than right. 3. Chronic urostomy and colostomy. 4. Left buttock decubitus ulcer with osteomyelitis, status post debridement on 01/05/2021. 5. Urinary tract infection with sepsis. 6. History of diabetes mellitus. PLAN: The overall plan of care is based on the pre-admission screen and information garnered from therapy assessments. 1. Estimated length of stay is probably going to be around 2 weeks. 2. Medical prognosis is reasonably good. 3. Anticipated interventions includes the interdisciplinary acute inpatient rehabilitation program. 4. Anticipated functional outcomes would be for the patient to become modified independent with transfers, mobility and ADLs, or at least to achieve a functional level where they could again care for her at the correction. 5. Discharge destination would be to return to [facility]. 6. Expected therapy by discipline includes PT and OT 1 and 1-1/2 hours per day each 5 days a week throughout the duration of the acute inpatient rehabilitation stay. ADDENDUM: The patient's prognosis for significant practical improvement within a reasonable period of time appears good. Given the patient's complex medical condition and risk of further medical complication, rehabilitation services [address] [address] REHAB UNIT PLAN OF CARE Name: AUDRA HARRIS Fidel Room #: 509-P [facility] IN [facility].#: [id number] Admission: 01/07/21 Attend Phys: Alli Guzmán MD Discharge: Date of : 64 Report #: [id number] could not be safely provided at the lower level of care such as a group home facility. By: [id number] Alli Guzmán MD /nt
[~2021-01-07 10:51] MED LIST changes: +BACITRACIN ZINC28 GM TOP; +BENADRYL ALLERG25 MG PO; +CARBIDOPA-LEVO1 EAC9 PO; +DAKIN'S473 M1 TOP; +DELSYM COU30 MG/5 M1 PO; +ENTACAPONE200 M1 PO; +FAMOTIDINE 20 M20 MG PO; +FERREX 150 FORT1 CAP PO; +MAG-AL PLUS SUS30 ML PO; +MUPIROCIN1 GM TOP; +ONDANSETRON HCL4 M3 DISSOLVE; +PEPCID20 MG PO; +VENOFER200 MG/10 IVPB; +VITAMIN C500 M1 PO; +VITAMIN D21250 MCG PO; +ZINC SULFATE50 MG PO
--- NOTE | 2021-01-08 02:25 | NUR ---
TO REHAB AT 1800 01/07/21. PATIENT ANSWERING ALL ADMISSION HISTORY QUESTIONS, IS FROM [facility], STATES JUST HAD ISCHIAL DRESSING DONE, PREFERS TO HAVE PICTURE TAKEN AND WOUND DRESSING IN AM. PICTURE TAKEN AND BACITRACIN APPLIED TO HER OTHER WOUND, WHICH IS ON TOP OF HEAD. COLOSTOMY PATENT. UROSTOMY TO DD. HAS LATEX ALLERGY, SPINAL BIFIDA WITH FIRST SURGERY AT AGE 8
[2021-01-08 05:40] LABS: HEMATOCRIT 24.8 % (37.0-47.0); MCH 24.9 pg (26.0-34.0); MCHC 32.3 g/dL (28.0-37.0); MCV 77.2 fL (80.0-100.0); RBC 3.21 mil/uL (4.20-5.00); RDW 21.2 % (10.5-14.5); WBC 3.8 thou/uL (4.0-11.0)
[2021-01-08 05:49] LABS: CALCIUM 7.9 mg/dL (8.5-10.1); CREATININE 0.9 mg/dL (0.6-1.0); POTASSIUM 3.7 mmol/L (3.5-5.1)
[2021-01-08 07:15] VITALS: BP 106/62
[2021-01-08 15:11] LABS: APTT 30.8 Seconds (24.5-32.8); INR 1.03; PROTIME 11.2 Seconds (10.5-12.1)
[2021-01-08 16:05] LABS: ABSOLUTE NEUTROPHILS 2.9 thou/uL (1.4-8.2); BASOPHILS 1.7 % (0.0-2.0); EOSINOPHILS 5.6 % (0.0-3.0); HEMATOCRIT 25.7 % (37.0-47.0); HEMOGLOBIN 8.2 gm/dL (12.0-15.0); LYMPHOCYTES 22.6 % (24.0-44.0); MCH 24.8 pg (26.0-34.0); MCHC 31.8 g/dL (28.0-37.0); MCV 78.1 fL (80.0-100.0); MONOCYTES 9.1 % (1.0-8.0); PLATELET COUNT 155 thou/uL (150-400); RBC 3.29 mil/uL (4.20-5.00); RDW 21.5 % (10.5-14.5); WBC 4.8 thou/uL (4.0-11.0)
--- NOTE | 2021-01-08 16:33 | NUR ---
PATIENT HAD SHASHA BLOOD NOTED WITH DARK RED BLOOD CLOTS IN COLOSTOMY BAG WITH EMPTYING OF DEVICE. WHOLE COLOSTOMY DEVICE CHANGED TO VISUALIZE ORIGIN OF BLOOD AND RN NOTED THAT IT WAS OOZING AT A MODERATE RATE FROM THE BOTTOM EDGE OF THE COLOSTOMY NEAR THE AREA OF INTACT SKIN. PRESSURE WAS APPLIED WITH A DRY GAUZE PAD TO SLOW THE BLEEDING WHILE CLEANING AND REPLACING THE DEVICE, AND DR. BROWN WAS NOTIFIED. LABS WERE DRAWN STAT PER HIS RECOMMENDATION. BLEEDING SLOWED SIGNIFICANTLY, AND RN CLOSELY MONITORING OUTPUT. LAB RESULTS ARE NOW AVAILABLE AND CALL PLACED TO DR. BROWN AWAITING HIS CALL BACK. PATIENT WAS ALSO BATHED AND HAIR WAS WASHED, WELL DRESSING CHANGED TO HER LEFT ISHIUM. PT HAD BEEN UP TO THE WHEELCHAIR X 1 THIS AM FOR PHYSICAL THERAPY, AND HAS BEEN TURNED AND REPOSITIONED Q 2 HOURS. NOTE IN END OF SHIFT REPORT FOR QUERY TO WOUND CARE TEAM FOR TOMORROW REGARDING SEATING SCHEDULE FOR LEFT ISHIUM WOUND HEALING, AND LOW AIRLOSS PUMP ORDERED PER PROTOCOL FOR HER BED DUE TO THE WOUND.
[2021-01-08 17:19] LABS: ANISOCYTOSIS 1+
--- NOTE | 2021-01-08 17:49 | NUR ---
DR. BROWN RETURNED THE CALL, AND ORDERS RECEIVED FOR AM LABS.
[2021-01-08 19:20] VITALS: BP 104/56
--- NOTE | 2021-01-08 20:02 | NUR ---
NOTED THAT THERE IS AN ORDER TO OBTAIN ADVANCED DIRECTIVES PAPERWORK FROM PT'S PAST CHART. NM UNABLE TO LOCATE UNDER SCANNED IMAGES, AND CALL PLACED TO PT'S PRIMARY CONTACT #. THE CAREGIVER AT PT'S LONG TERM ANSWERED AT THE # LISTED IN ADMISSION ASSESSMENT PRIMARY CONTACT, AND CONFIRMED THAT PT'S BROTHER IS THE POWER OF CORK FLOOR INSTALLER. SHE HAS A COPY OF THIS PAPERWORK AND PLANS TO VISIT PATIENT DEBORA, AND WILL BRING IT WITH HER WHEN SHE COMES.
--- NOTE | 2021-01-08 23:14 | NUR ---
ASSUMED CARE OF PT AT 1930. PT IS A&OX3. IS ON ROOM AIR. DENIES PAIN AT THIS TIME. IS STABLE. IS TURNED Q2H. HEEL PROTECTOR BOOTS IN PLACE. DRSG CHANGED THIS EVENING TO LEFT ISCHIAL TUBEROSITY BY THIS NURSE. ILEOSTOMY INTACT WELL COLOSTOMY. PT IS UP WITH MAX ASSIST OF 2, STAND PIVOT TO CHAIR. FALL PRECAUTIONS & HOURLY ROUNDING CONTINUED THIS SHIFT. LABS & VITALS REVIEWED. PT IS CURRENTLY SLEEPING. CALL LIGHT IS WITHIN REACH. WILL CONTINUE TO MONITOR.
--- NOTE | 2021-01-08 23:19 | NUR ---
SWITCH HOUSE OPERATOR FROM [facility] BROUGHT IN PT'S DPOA PAPERWORK THIS EVENING. COPY CAN BE FOUND IN PT CHART UNDER ADVANCE DIRECTIVES PER INTELLIGENCE CONSULTANT.
[2021-01-09 07:02] LABS: HEMOGLOBIN 8.1 gm/dL (12.0-15.0); MCHC 32.5 g/dL (28.0-37.0); RBC 3.25 mil/uL (4.20-5.00); RDW 21.7 % (10.5-14.5); WBC 4.1 thou/uL (4.0-11.0)
[2021-01-09 07:15] VITALS: BP 120/71
[2021-01-09 07:16] LABS: ALBUMIN 2.2 g/dL (3.4-5.0); CALCIUM 8.2 mg/dL (8.5-10.1); POTASSIUM 3.9 mmol/L (3.5-5.1); TOTAL BILIRUBIN 0.3 mg/dL (0.2-1.0)
[2021-01-09 07:30] VITALS: BP 120/71
--- NOTE | 2021-01-09 09:24 | NUR ---
OSTOMY CARE; AWAKE, ALERT, COOPERATIVE, UROSTOMY POUCH ON 5 DAYS, CHANGED USING ONE PIECE CONVEX, 1 06/24' JOANNA POUCH, W/ ADAPT RING UNDER WAFER, STOMA PINK VIABLE FLAT W/ SKIN SURFACE, PERISTOMAL SKIN INTACT, URINE CLEAR YELLOW, CONNECTED TO DEP DRAINAGE, COLOSTOMY POUCH EDGES LOOSE, STOMA RED VIABLE FLAT W/ SKIN SURFACE, PERISTOMAL AREA BETTE BUT HEALING FROM SURGERY, SCANT BLEEDING NOTED, MARATHON PREP APPLIED, YELLOW SLOUGH TISSUE PRESENT, STOMA RED, FLAT W/ SKIN SURFACE, PHOTO TAKEN AND ON CHART, LOOSE BROWN STOOL NOTED, NEW POUCH JOANNA CUT TO FIT W/ ADAPT RING APPLIED UNDER WAFER, SUPPLIES AT BS RECOMMENDATIONS; CHANGE POUCHES Q 3-5 DAYS AND PRN, EMPTY PRN DIRECTOR INTERNAL AUDIT AWARE
--- NOTE | 2021-01-09 15:28 | NUR ---
Chart review. She lives at [facility]. Cm visited with her this am while she was working with OT in the room. Intro to dcp and team meetings. A & o x 3, pleasant and able to make her needs known. Noted she been to [facility] past and had [facility], along with [facility] in the past. Uses a walker. She gets assist with medication and meals. PCP is Dr Rodriguez. Will cont. following as needed for dc needs.
[2021-01-09 19:24] VITALS: BP 109/60
[2021-01-10 00:06] LABS: GLYCOHEMOGLOBIN (HGB A1C) 5.2 % (4.8-5.6)
--- NOTE | 2021-01-10 02:36 | NUR ---
assumed care approx 1900 evening 01/09. pt sitting up in bed at change of shift having a snack. pt c/o vomiting shortly after and Zofran given as ordered. pt reported relief and no further nausea. colostomy intact with soft, unformed stool. urostomy intact with clear, yellow urine in bag. pt took hs meds with water tolerating well. pt appears to be sleeping soundly. bed alarm on and call light in reach. will continue to monitor.
[2021-01-10 07:15] VITALS: BP 121/61
--- NOTE | 2021-01-10 14:31 | NUR ---
Team meeting, dc 8 back to [facility]. Will need wound care. HH (pt, Ot, nursing). Fww or wheelchair. Will cont. following as needed for dc needs.
[2021-01-10 19:04] VITALS: BP 121/61
[2021-01-10 19:14] VITALS: BP 110/54
--- NOTE | 2021-01-11 03:04 | NUR ---
assumed care approx 0 evening 01/10. pt alert and oriented x4, pleasant and cooperative. colostomy bag intact releived air from bag. urostomy bag intact draining yellow urine. pt had snack tonight, no nausea. pt took hs meds with water tolerating well. pt appears to be sleeping soundly. bed alarm on and call light in reach. will continue to monitor.
--- NOTE | 2021-01-11 07:39 | NUR ---
ASSUMED C/O PT AT 0700. PT UROSTOMY AND COLOSTOMY DRAINING TO BAGS. PT WILLINGLY WORKS WITH THERAPIES. PT USES CALL LIGHT APPROPRIATELY. PT TOLERATING REGULAR DIET. WILL CONTINUE WITH POC.
[2021-01-11 07:43] VITALS: BP 125/68
--- NOTE | 2021-01-11 14:19 | NUR ---
Cm called [facility] and they will not be able to do daily wound care if that is what she is needed. Will cont following as needed for dc needs.
[2021-01-11 16:44] LABS: ABSOLUTE NEUTROPHILS 3.7 thou/uL (1.4-8.2); BASOPHILS 1.3 % (0.0-2.0); EOSINOPHILS 4.4 % (0.0-3.0); HEMATOCRIT 26.4 % (37.0-47.0); HEMOGLOBIN 8.7 gm/dL (12.0-15.0); LYMPHOCYTES 20.6 % (24.0-44.0); MCHC 32.9 g/dL (28.0-37.0); MCV 78.9 fL (80.0-100.0); MONOCYTES 9.9 % (1.0-8.0); PLATELET COUNT 178 thou/uL (150-400); POLYS 63.8 % (36.0-66.0); RBC 3.35 mil/uL (4.20-5.00); RDW 22.3 % (10.5-14.5); WBC 5.8 thou/uL (4.0-11.0)
[2021-01-11 17:00] LABS: ALBUMIN 2.4 g/dL (3.4-5.0); CALCIUM 8.3 mg/dL (8.5-10.1); CREATININE 1.2 mg/dL (0.6-1.0); POTASSIUM 4.2 mmol/L (3.5-5.1); TOTAL BILIRUBIN 0.2 mg/dL (0.2-1.0); TOTAL PROTEIN 6.5 g/dL (6.4-8.2)
[2021-01-11 19:25] VITALS: BP 124/77
--- NOTE | 2021-01-12 03:15 | NUR ---
TURNED TO RIGHT SIDE AFTER MEDS AND DRESSING CHANGE TO L ISCHIUM WITH DAKIN'S MOISTENED GAUZE. UROSTOMY TO DD AND COLOSTOMY PATENT WITH SMALL AMOUNT SANGUINOUS AREA AT LOWER LEFT EDGE DRY AND UNCHANGED. PATIENT NOTICED EDGE OF IV DRESSING LOOSE AND TOLERATED REINFORCEMENT WITH PAPER TAPE. HERNIA PRESENT AND UNCHANGED. FEET ELEVATED ON PILLOWS, MOISTURE BARRIER TO RIGHT LATERAL LOWER LEG REDNESS.
--- NOTE | 2021-01-12 07:25 | NUR ---
OSTOMY CARE; AWAKE, ALERT, COOPERATIVE, VERY PLEASANT, COLOSTOMY POUCH EDGES LOOSE DUE TO MILD BLEEDING AROUND STOMA AT 12:00 OF PERISTOMAL AREA, COOL CLOTH AND SILVER NITRATE TREATED TO BLEEDING AREA AND BLEEDING CEASED, SMALL PIECE AQUACEL AG APPLIED W/ ADAPT RING, 2 PIECE JOANNA APPLIANCE APPLIED W/ GOOD SEAL NOTED, STOMA BEEFY RED, LOOSE BROWNISH/RED STOOL NOTED, PHOTO TAKEN AND PLACED ON CHART, WILL INFORM DR, UROSTOMY POUCH CHANGED ALSO, 1 PIECE JOANNA CONVEX, 1 06/24' CONNECTED TO DEP DRAINAGE, URINE CLEAR YELLOW RECOMMENDATIONS CHANGE POUCHES Q 3-5 DAYS AND PRN, EMPTY PRN DIRECTOR OF ACCREDITATION AWARE
[2021-01-12 07:50] VITALS: BP 115/56
--- NOTE | 2021-01-12 09:59 | NUR ---
OSTOMY CARE ADDENDUM; DR ELIZABETH INFORMED OF PERISTOMAL AREA BLEEDING THIS AM, AND USE OF SILVER NITRATE
--- NOTE | 2021-01-12 16:21 | NUR ---
CASE MANAGEMENT NOTE: SARTHAK, PATIENT'S CAREGIVER AT THE SENIOR CARE, HAS HANDED TO THE NM A PACKET OF DOCUMENTATION REGARDING AN ISSUE WITH [facility]. SHE HAS REQUESTED THAT ANOTHER HH COMPANY, NOT [facility], WOULD ASSIST IN THE SENIOR CARE AFTER DC. ALAINA WILL FOLLOW UP WITH THE INSOLE PRESSER AND ELECTROLOGIST AND WILL ASSIST TO SELECT ANOTHER HH AGENCY. PACKET IS IN THE PATIENT'S CHART FOR CM TO REVIEW.
--- NOTE | 2021-01-12 19:00 | NUR ---
COLOSTOMY LEAKING, AND WAFER AND BAG HAVE BEEN CHANGED. NOTED MODERATE AMOUNT OF BLOODY DRAINAGE AT EDGE OF COLOSTOMY INSERTION AREA, AND THIS WAS THE AREA THAT HAD BEEN TREATED WITH SILVER NITRATE PER DONALD SUBRAMANIAN. NEW DEVICE APPLIED AFTER THOROUGH CLEANSING. PT C/O PAIN WITH DEVICE CHANGE. EARLIER IN THE DAY, DRESSING TO LLE/BUTTOCK WOUND WAS CHANGED AFTER HER SHOWER, AND PT ALSO C/O MILD PAIN WITH THIS. NOTED THAT AREA HAS SOME TUNNELLING, AND THIS WAS GENTLY CLEANSED AND PACKED WITH DAKINS W-D. SKIN PREP TO CLEO-WOUND SKIN. NO REDNESS NOTED AROUND WOUND.
[2021-01-12 19:46] VITALS: BP 132/77
--- NOTE | 2021-01-13 02:23 | NUR ---
ISCHIAL DAKIN'S DRESSING CHANGE WITH MOISTURE BARRIER AT WHITE EDGE OF WOUND. COLOSTOMY CHANGE AND LATER RINSED AND EMPTIED. SALINE LOCK FOR EVERY 6 HOUR ANTIBIOTICS. PATIENT HAS GOOD APPETITE WITH [facility] [facility] AND [facility].
[2021-01-13 08:00] VITALS: BP 119/48
--- NOTE | 2021-01-13 13:49 | NUR ---
[facility] is not able to do daily wound care for hh. [facility] will have to have a hh that will be able to come daily for wound care or she will not be able to return to her residential [facility]. Referral sent to [facility] Will cont. dcp as needed for discharge. Will cont. to discuss during weekly team meeting. dc date 01/20/21
--- NOTE | 2021-01-13 14:15 | NUR ---
ASSUMED CARE AT 0700. PATIENT IS ALERT AND ORIENTEDX4. PATIENT DRILL OPERATOR AUTOMATIC ARE EQUAL. PATIENT IS UP IN CHAIR FOR MEALS. LUNGS ARE CLEAR AND DEMINISHED. ABD IS SOFT WITH BSX4. PATIENT HAS COLOSTOMY AND HAD BM TODAY. PATIENT ALSO HAS UROSTOMY DRAINING TU COLORED URINE. IV INFILTRATED. IV TEAM NOTIFIED. UP WITH P.T. TO AMBULATE IN [place]. FALL AND SAFETY PROTOCOLS IN PLACE. DENIES PAIN AT THIS TIME. CONTINUES ON [place] MEDS FOR HER TREMORS. CONTINUES TO PROGRESS SLOWLY TOWARDS D/C GOALS. WILL CONTINUE TO [facility].
[2021-01-13 20:01] VITALS: BP 119/58
--- NOTE | 2021-01-13 20:09 | NUR ---
OSTOMY CARE; AWAKE,ALERT, COOPERATIVE, POUCH EDGES LOOSE ON COLOSTOMY, AREA HEALING PERISTOMAL FROM SURGERY, STILL BLEEDING MILD BUT LESSEN FROM YESTERDAY AND HEALING, AREAS TREATED W/ SILVER NITRATE AND AUGATHON PREP, 2 PIECE CUT TO FIT APPLIANCE APPLIED W/ ADAPT RING UNDER WAFER, UROSTOMY POUCH ALSO CHANGED W/ CONVEX 06/24 POUCH AND CONNECTED DEP DRAINAGE, SUPPLIES AT BS RECOMMENDATIONS; CHANGE POUCH Q 2-4 DAYS AND PRN, EMPTY PRN CONDUIT BENDER AWARE
--- NOTE | 2021-01-14 04:06 | NUR ---
ASSUMED CARE APPROX 1900 EVENING 01/13. PT DOZING OFF AND ON AT CHANGE OF SHIFT. AWOKE TO TAKE HS MEDS. COLOSTOMY BAG INTACT CHANGED BY OSTOMY NURSE EVENING 01/13. DRESSING CHANGE TO BACK/ ISCHIUM ORDERED. PT APPEARS TO BE SLEEPING SOUNDLY. BED ALARM ON AND CALL LIGHT IN REACH. WILL CONTINUE TO MONITOR.
[2021-01-14 07:15] VITALS: BP 110/46
[2021-01-14 08:00] VITALS: BP 110/46
--- NOTE | 2021-01-14 11:31 | NUR ---
ASSUMED CO PATIENT AT 0700. PT A&OX4. COLOSTOMY AND URINARY DIVERSION IN PLACE WITH NO NOTED LEAKAGE, OR BLEEDING. PT PLEASANT AND COOPERATIVE. PT TOLERATING REGULAR DIET. PT WILLINGLY WORKS WITH THERAPIES. IV ABT CONTINUED PER ORDER. ISHIAL WOUND TO BE CHANGED THIS AFTERNOON. WILL CONTNIUE TO MONITOR.
[2021-01-14 22:00] VITALS: BP 143/67
--- NOTE | 2021-01-15 00:28 | NUR ---
pts colostomy bag leaking and with bloody stool in bag. removed old bag, cleaned area around stoma and applied new bag. drainage from stoma was bloody and stool soft. pt tolerated well. dressing change to ischium wound also done as ordered and pt tolerated well also. pt now sleeping. bed alarm on and call light in reach. will continue to monitor.
[2021-01-15 07:15] VITALS: BP 112/66
--- NOTE | 2021-01-15 17:19 | NUR ---
ASSUMED CARE OF PT AT 0700. PT AWAKE IN ROOM A&OX4. PT PLEASANT. DRESSING CHANGED TO ISHIUM. PT WILLINGLY WORKS WITH THERAPIES. PT IV ABT GIVEN ORDERED. CALL LIGHT AND BED ALARM IN REACH. WILL CONTNIUE TO MONITOR.
[2021-01-15 19:37] VITALS: BP 118/54
--- NOTE | 2021-01-16 04:10 | NUR ---
ASSUMED CARE AT 1900 OF 01/15. PATIENT IS A&OX4, DENIES PAIN OR SOB. UROSTOMY DRAINING YELLOW URINE. COLOSTOMY BAG IN PLACE AND INTACT, EMPTIED AFTER HAVING A LARGE BM. LEFT ISCHIAL WOUND CARE PERFORMED ORDERED. PATIENT TOLERATED TREATMENT WELL. LEFT WRIST IV SALINE LOCKED, NO S/S OF INFECTION OR INFILTRATION NOTED. PATIENT IS SLEEPING ON AND OFF DURING HOURLY ROUND.
[2021-01-16 08:00] VITALS: BP 161/59
--- NOTE | 2021-01-16 08:33 | NUR ---
OSTOMY CARE; AWAKE, ALERT, COOPERATIVE, VERY PLEASANT, COLOSTOMY POUCH EDGES LOOSE, NO REDDNESS PERISTOMAL AREA, AREA BLEEDING AT 4:00 STOMA BUT LESS AND HEALING, SILVER NITRATE APPLIED TO BLEEDING SITE AND BLEEDING CEASED, CAREERS ADVISER X2 IN ROOM AND VISUALIZED STOMA. PHOTO TAKEN AND PLACED ON CHART, NEW POUCH JOANNA 2 PIECE CONVEX CUT TO FIT APPLIED W/ ADAPT RING, SOME DISCOMFORT W/ OSTOMY CARE BUT NOT SEVERE, SOFT FORMED BROWN STOOL PRESENT, UROSTOMY POUCH CHANGED ALSO W/ JOANNA CONVEX 1 06/24' POUCH AND CONNECTED TO DEP DRAINAGE, BOTH STOMAS PINK VIABLE FLAT W/ SKIN SURFACE, PERISTOMAL AREA UROSTOMY INTACT, SUPPLIES AT BS RECOMMENDATIONS; CHANGE POUCHES Q 2-4 DAYS AND PRN, EMPTY PRN, SILVER NITRATE ANY PERISTOMAL AREAS BLEEDING PRN CAREERS ADVISER AWARE
--- NOTE | 2021-01-16 08:38 | H ---
[facility] [place] [place] [address] HISTORY AND PHYSICAL Name: AUDRA HARRIS Room #: 509-P ADM IN M.R.#: [id number] Admission: 01/07/21 Attend Phys: Alli Guzmán MD Discharge: Date of : 64 Report #: [id number] THIS REPORT FOR: cc: Steven Rodriguez MD, FAAFP, FACEP, Douglas MD FAA Alli Benitez MD ~ DATE OF SERVICE: 01/07/2021 HISTORY OF PRESENT ILLNESS: The patient is a 60-year-old female who has been admitted for acute in-hospital inpatient rehabilitation. The patient was originally admitted to [facility] on 12/29/2020 with worsening of her left buttock wound. She also was found to have urinary tract infection and sepsis, started on IV antibiotics. Wound care team was consulted and Surgery was consulted and she underwent debridement of the left buttock pressure ulcer and excision of colostomy masses on 01/05/2021. The patient has a prior history of spina bifida with bilateral lower extremity weakness and also has superimposed Parkinson's disease with tremor and rigidity. She has had a decline from her premorbid functional level and has now been admitted for an acute in-hospital inpatient rehabilitation stay. PAST MEDICAL HISTORY: Includes spina bifida with bilateral lower extremity weakness, left lower extremity more than right lower extremity. She is noted to have a prior colostomy and urostomy due to 1 kidney and bladder removal due to infections. She has the Parkinson's disease, diabetes mellitus, history of hydrocephalus, mild mental delay, hepatitis C, mood disorder, history of self-mutilation, hyperlipidemia, GERD, asthma. ALLERGIES: LATEX allergy is noted. SOCIAL HISTORY: Living at [facility]. She has a hospital bed with trapeze bar to help her with bed mobility. She utilized a 4-wheeled walker in the home and a wheelchair for community distances. She was independent to supervision with basic ADLs, but needs help with lower extremity dressing and she had IADLs provided. She has premorbid left foot drop. MEDICATIONS: As noted above. She is on Sinemet dosing 2 tabs t.i.d. for her Parkinson's. REVIEW OF SYSTEMS: No current complaints of chest pain, shortness of breath or abdominal discomfort. PHYSICAL EXAMINATION: GENERAL: The patient is a 60-year-old white female. She is in no obvious distress. She is pleasant, alert, mild delay with her answers. Some evidence of masked facies. Follows basic 1-step commands, cooperative. VITAL SIGNS: Temperature 97.9, pulse 83, respirations 16, blood pressure [address] [address] HISTORY AND PHYSICAL Name: AUDRA HARRIS Room #: 509-P [facility] IN M.R.#: [id number] Admission: 01/07/21 Attend Phys: Alli Guzmán MD Discharge: Date of : 64 Report #: [id number] . HEENT: Otherwise appeared benign. CHEST: Sounded clear to auscultation. CARDIAC: Regular rate and rhythm. ABDOMEN: She has the colostomy with the bag in place, appears intact as well as the urostomy with the bag intact. She does have exogenous obesity. Bowel sounds are positive. GENITOURINARY: Deferred. RECTAL: Deferred. EXTREMITIES: I did not actually examine her buttock wound. NEUROLOGIC: In her lower extremities, she does have left foot drop. She called it a clubfoot. There is weakness in dorsiflexion and the foot is held in a plantarflexed inverted position. She is able to dorsiflex some; however, I would grade it at probably a 3- to 2+. Proximally, she is more of a grade 3+. Right lower extremity strength appears to be a 3+ and she has better dorsiflexion at least a 3+ on the right. Tone appeared to be somewhat decreased. There is no clonus. She does have reasonably intact sensation to light touch, bilateral lower extremities, however. There is no focal calf swelling. Functionally, she has been min assist with sit to stand. She is ambulated 10 feet with a front-wheeled walker, max assist. She has needed max assist for lower body dressing. She does have a resting tremor of both upper extremities, classic pill-roll in nature. There is some cogwheeling at the wrists and elbows. She does have some rigidity of the upper and lower extremities. ASSESSMENT: A 60-year-old white female with the following problem list: 1. Parkinson's disease. 2. Spina bifida with bilateral lower extremity weakness, left more than right. 3. Chronic urostomy and colostomy. 4. Left buttock decubitus ulcer with osteomyelitis, status post debridement on 01/05/2021. 5. Urinary tract infection with sepsis. 6. History of diabetes. PLAN: The patient has been admitted for acute in-hospital inpatient rehabilitation. Please see the patient's previous and current functional status. As far as risk of complications, the patient has multiple medical comorbidities as noted above. The initial plan of care involves the interdisciplinary acute inpatient rehabilitation program. Measurable functional goals would be for the patient to become modified independent with transfers, mobility, ADLs, so she can hopefully return back to her prior living situation. Prognosis is reasonably good with estimated length of stay probably at least 2 weeks. Potential barriers would include her multiple medical comorbidities and decreased functional status. [facility] [place] [address] HISTORY AND PHYSICAL Name: AUDRA HARRIS Fidel Room #: 509-P ADM IN .R.#: [id number] Admission: 01/07/21 Attend Phys: Alli Guzmán MD Discharge: Date of : 64 Report #: [id number] The patient meets diagnostic criteria for an acute in-hospital inpatient rehabilitation stay. She meets the medical necessity criteria and we will have the multiple market intelligence consultant physicians continue to follow. Wound care will especially be important as well as surgery as indicated along with her primary care physician. She does have the tolerance for therapies and our hope is to have her return back to the home setting. She does have appropriate discharge goals back to the home setting as noted. <ELECTRONICALLY SIGNED> By: Alli Guzmán MD 01/16/21 [id number] Alli Guzmán MD /nt
[2021-01-16 11:11] LABS: BASOPHILS 1.4 % (0.0-2.0); EOSINOPHILS 5.2 % (0.0-3.0); HEMATOCRIT 26.1 % (37.0-47.0); HEMOGLOBIN 8.6 gm/dL (12.0-15.0); LYMPHOCYTES 21.3 % (24.0-44.0); MCH 26.8 pg (26.0-34.0); MCHC 33.1 g/dL (28.0-37.0); MCV 81.1 fL (80.0-100.0); MONOCYTES 9.3 % (1.0-8.0); PLATELET COUNT 161 thou/uL (150-400); POLYS 62.8 % (36.0-66.0); RBC 3.22 mil/uL (4.20-5.00); RDW 24.7 % (10.5-14.5); WBC 4.7 thou/uL (4.0-11.0)
[2021-01-16 11:25] LABS: CALCIUM 8.2 mg/dL (8.5-10.1); CREATININE 1.4 mg/dL (0.6-1.0); POTASSIUM 3.5 mmol/L (3.5-5.1)
[2021-01-16 12:06] LABS: ANISOCYTOSIS 1+; PLATELET ESTIMATE NORMAL
--- NOTE | 2021-01-16 14:02 | NUR ---
FAXED REFERRAL AND NEGATIVE COVID RESULT (01/07/21) TO [facility]. INCLUDED WOUND AND OSTOMY CARE NOTES PER PODIATRY DOCTOR. [facility] P [phone]; FAX [phone]
--- NOTE | 2021-01-16 15:31 | NUR ---
[facility] unable to accept for nursing hh needs, unable to do daily visit and jessica has ostomy's and wound care. Cm passed on information to bedside nurse. 01/20 dc. referral sent to yuriy , deion and cesar . Will cont following as needed for dc needs.
--- NOTE | 2021-01-16 16:02 | NUR ---
PER CM, THERE ARE NO HOME HEALTH AGENCIES AVAILABLE TO CHANGE PATIENT'S DRESSINGS ON A DAILY BASIS, AND CAREGIVERS AT [facility] ARE NOT ABLE TO DO THESE KINDS OF CARES. NOTIFIED DR. ERICKSON OF THIS CONCERN FOR DISCHARGE PLANNING, AND HE STATED THAT HIS PLAN AT DISCHARGE IS FOR THE PATIENT TO HAVE HER DRESSING TO THE LEFT ISHIUM CHANGED EVERY SATURDAY, SATURDAY, AND SATURDAY. ALSO DISCUSSED POSSIBLE WOUND VAC, BUT THIS HAS EVIDENTLY NOT WORKED IN THE PAST FOR THIS PATIENT. THIS INFORMATION WAS SHARED WITH CASE MANAGEMENT, WHO WILL CONTACT AGENCIES WITH UPDATE.
--- NOTE | 2021-01-16 18:46 | NUR ---
PT TOLERATED THERAPIES WELL, HAD COLOSTOMY AND UROSTOMY DEVICES CHANGED BY DONALD SUBRAMANIAN, AND DRESSING WAS CHANGED TO LEFT ISHIAL STAGE 4 PRESSURE ULCER. LIMITING SEATING TO 1 HOUR AT A TIME, THEN OFF-LOADING, TURNING AND REPOSITIONING, AND USING PRAFO BOOTS WHEN IN BED. PT AMBULATED IN URENA WITH THERAPY. NO BLEEDING AT COLOSTOMY NOTED TODAY, AND HGB REMAINS STABLE. PER WOUND CARE, PT WILL CHANGE TO M-W-F DRESSING CHANGES AT DISCHARGE AND THIS WAS NOTED TO CM PER DR. ERICKSON.
[2021-01-16 19:25] VITALS: BP 118/65
--- NOTE | 2021-01-17 05:07 | NUR ---
01-16-21 CARE TRANSFERRED 1899. LATER PT AAOX4, VSS, RR EVEN AND NONLABORED ON RA. PT DENIES PAIN. PT L. HAND IV 22GA S/L, DRESSING CLEAN, DRY AND PATENT. PT UROSTOMY AND COLOSTOMY, C/D/I. PER SHIFT REPORT PT ISHIAL STAGE 4 PRESSURE ULCER WAS CHANGED WET TO DRY WITH DANKINS SOLUTION COMPLETED THIS AFTERNOON. PT HAS HEAD WOUND AND BACTRCIAN APPLIED, PT HAD SKIN GRAPH TO RIGHT HEAL. PT HAS TOLERATED ANTIBOTIC THERAPY WELL. NO BLOOD NOTED IN STOOL AND COLOSTOMY WAS EMPTY MODERATE AMT OF SOFT BROWN STOOL. PT HAS BEEN REPOSITION Q2 USING WEDGE. PT WILL CONTINUE TO BE MONITOR PER 5N PROTOCOL.
[2021-01-17 08:30] VITALS: BP 125/54
[2021-01-17 08:40] VITALS: BP 125/54
--- NOTE | 2021-01-17 12:35 | NUR ---
Team meeting, recommendation: getting picc line for longer term ABX. Wound care. will need to look into other opting for dc rt residential care facility cannot do IV ABX. will discuss skilled with patient. DC 01/20
--- NOTE | 2021-01-17 19:15 | NUR ---
ASSUMED CO PT AT 0700. PT A&O X4. CHANGED ENTIRE COLOSTOMY TODAY. COLOSTOMY LEAKING. CONTINUE WITH POC.
[2021-01-17 19:40] VITALS: BP 118/60
--- NOTE | 2021-01-18 04:17 | NUR ---
ASSUMED CARE AT 1900 OF 01/17. PATIENT IS A&OX4, COOPERATIVE AND PLEASANT. DENIES PAIN OR SOB. UROSTOMY IN PLACE AND INTACT, DRAINING YELLOW URINE. COLOSTOMY IN PLACE AND INTACT, MODERATE DARK BROWN SOFT STOOL EMPTIED FROM BAG. LEFT ISCIAL WOUND DRESSING PERFORMED ORDERED AT , SKIN PREP APPLIED TO WOUND EDGES. PATIENT TOLERATED THIS WILL. PATIENT IS REPOSTIONED IN BED. RIGHT UPPER ARM PICC LINE IN PLACE, INTACT AND PATENT. DRESSIND IS C/D/I. IV ANTIBIOTICS ADMINISTERED VIA PICC LINE, PATIENT IS TOLERATING THIS WELL. CALL LIGHT WITHIN REACH, WILL CONTINUE TO MONITOR.
[2021-01-18 08:00] VITALS: BP 129/76
--- NOTE | 2021-01-18 08:40 | NUR ---
Skilled referral sent to [facility] and shuk[facility] left message with dr jenkins to see how long iv abx will be needed/weeks?
[2021-01-18 16:09] LABS: URINE BILIRUBIN NEGATIVE (Negative); URINE BLOOD NEGATIVE (Negative); URINE CLARITY CLEAR; URINE COLOR YELLOW; URINE GLUCOSE-RANDOM* NEGATIVE (Negative); URINE KETONES NEGATIVE (Negative); URINE LEUKOCYTES-REFLEX NEGATIVE (Negative); URINE NITRITE-REFLEX NEGATIVE (Negative); URINE PROTEIN (DIPSTICK) NEGATIVE (Negative); URINE UROBILINOGEN 0.2 E.U./dl (0.2-1.0)
[2021-01-18 17:28] VITALS: BP 129/76
--- NOTE | 2021-01-18 19:06 | NUR ---
UROSTOMY CHANGED X3 TODAY. NEW URINE CULTURE WAS NEGATIVE. WILL FOLLOW UP ON USE OF IV ABT.
[2021-01-18 19:14] VITALS: BP 129/72
--- NOTE | 2021-01-19 07:13 | NUR ---
ASSUMED CARE AT 1900 OF 01/18. PATIENT IS A&OX4. DENIES PAIN OR SOB. LEFT ISCHIAL WOUND CARE PROVIDED, PATIENT REPOSITIONED Q2H USING WEDGE TO OFFLOAD BACK SIDE. UROSOTOMY AND COLOSTOMY BAG IN PLACE AND INTACT, COLOTOMY WAS EMPTIED ONCE AFTER A LARGE BM. PATIENT ALSO HAS SOME BLACK MUCOUS DISCHARGE AT RECTUM, WHICH WAS CLEANED UP. PICC LINE IN PLACE IN RIGHT UPPER ARM. PICC DRESSING WAS SATURATE WITH BLOOD, AND PEELING OFF, SO STERILE DRESSING CHANGE WAS PERFORMED. PATIENT TOLERATED THIS WELL. PATIENT WAS IN AND OUT OF SLEEP DURING THE NIGHT. IV ANTIBIOTICS ADMINISTERED ORDERED.
--- NOTE | 2021-01-19 07:17 | NUR ---
OSTOMY CARE; AWAKE,ALERT, COOPERATIVE, VERY PLEASANT, CHANGED COLOSTOMY POUCH TO ASSESS PERISTOMAL AREA, INTACT, SCANT BLEEDING NOTED, MUCH IMPROVED, SILVER NITRATE APPLIED TO SMALL AREA BLEEDING BASE OF STOMA, STOMA PINK VIABLE, SOFT BROWN STOOL NOTED, ADAPT RING APPLIED UNDER WAFER 2 PIECE CONVEX CUT TO FIT POUCH, NEW POUCH JOANNA CONVEX 1 1/8' APPLIED W/ ADAPT RING, PERISTOMAL AREA INTACT, STOMA FLAT PINK VIABLE, W/ CLEAR YELLOW URINE NOTED, CONNECTED TO DEP DRAINAGE, CELL LEAD X2 PRESENT, REVIEW OSTOMY CARE, SUPPLIES AT RECOMMENDATIONS; CHANGE POUCHES Q 2-4 DAYS AND PRN EMPTY PRN CELL LEAD AWARE
[2021-01-19 07:45] VITALS: BP 125/74
[2021-01-19 08:00] VITALS: BP 125/74
--- NOTE | 2021-01-19 09:49 | NUR ---
Chart copy requested, will need covid test prior to dc to skilled rehab tomorrow.
--- NOTE | 2021-01-19 12:37 | HC ---
[facility] [place] [address] CONSULTATION Name: AUDRA HARRIS Room #: 509-P [facility] IN .R.#: [id number] Admission: 01/07/21 Attend Phys: Alli Guzmán MD Discharge: Date of : 64 Report #: [id number] THIS REPORT FOR: cc: Steven Rodriguez MD [facility] Steven Giraldo MD [facility] Matt Smith MD ~ DATE OF SERVICE: 01/18/2021 INFECTIOUS DISEASE CONSULTATION ATTENDING PHYSICIAN: Dr. Guzmán. REASON FOR EVALUATION: Complicated urinary tract infection due to Klebsiella. HISTORY OF PRESENT ILLNESS: Chart reviewed and the patient examined. This is a 60-year-old woman with history of spina bifida and hydrocephalus as well as diabetes mellitus, who has got a longstanding ulceration involving the left ischial site. There is suspected underlying osteomyelitis, and undergoing wound care as well as rehabilitation. She had been admitted on 12/29 with suspected urosepsis. She did have some moderate pyuria. Her culture grew a Klebsiella that was fairly susceptible exception of ampicillin, admitted on parenteral therapy, again treating the that was felt to be a deep infection, probable osteomyelitis involving the left ischium. Based on CT imaging, study also noted a right hydronephrosis and hydroureter, multiple collecting system calculi, no evident ureteric stone, multiple hernias. At this point, she has no symptoms attributable to a urinary tract infection, no recent fevers. She has been on the Unasyn since 01/10. ALLERGIES: LATEX. CURRENT MEDICATIONS: Include ergocalciferol, Unasyn, Bacitracin, famotidine, amlodipine, Sinemet, entacapone, imipramine, aripiprazole, multivitamins, zinc, meclizine, p.r.n. analgesics, antiemetics, furosemide, ibuprofen. PAST MEDICAL HISTORY: Includes as noted above, spina bifida, history of epilepsy with seizures, hydrocephalus, chronic hepatitis C, anemia, mood disorder, hyperlipidemia, reflux, asthma, chronic wound with suspected osteomyelitis, diabetes mellitus, Parkinson's, ileostomy and a diverting colostomy. SOCIAL HISTORY: Nonsmoker, no ethanol. FAMILY HISTORY: Noncontributory. REVIEW OF SYSTEMS: Otherwise, unremarkable. [address] [address] CONSULTATION Name: AUDRA HARRIS Room #: 509-P [facility] IN .R.#: [id number] Admission: 01/07/21 Attend Phys: lAli Guzmán MD Discharge: Date of : 64 Report #: [id number] PHYSICAL EXAMINATION: GENERAL: She is alert, cooperative, mild to moderate distress. She appears chronically ill and undernourished, generally responds appropriately, appears to be lucid. VITAL SIGNS: Temperature 97.5, pulse 76, respirations 20, blood pressure 129/76. SKIN: Warm, dry, no rashes. HEENT: Normocephalic. Extraocular muscles intact. NECK: Supple. LUNGS: Diminished breath sounds, otherwise clear. HEART: Regular, somewhat irregular. Soft systolic murmur. ABDOMEN: Mildly distended. The ostomy is in place, now somewhat firm, nontender. No peritoneal signs. GENITOURINARY AND RECTAL: Deferred. LABORATORY DATA: Sed rate of 48. CBC: White count of 4.7, H and H 8.6 and 26.1, platelets of 161. Electrolytes: Sodium 140, potassium ____, chloride 108, bicarbonate 25, anion gap of 7, BUN and creatinine 32 and 1.4. ASSESSMENT AND PLAN: Complicated urinary tract infection in a patient with multiple diagnoses and heavy medical disease burden as well as a chronic ulceration. We will repeat the urinalysis. I think based on the fact that she has been on antibiotics that should have covered it for an extended period of time, although empirically treating and see if any need to pursue any additional. There is no evidence of obstructive uropathy at this point, although does have a derangement of genitourinary tract. Continue wound care as prescribed and incentive spirometry. Physical therapy as dictated. <ELECTRONICALLY SIGNED> By: Matt Smith MD 01/19/21 1237 [id number] Matt Smith MD /nt
--- NOTE | 2021-01-19 12:51 | NUR ---
ASSUMED CARE OF PT AT 0700. PT A&OX4. WOUND NURSE AT BEDSIDE CHANGED BOTH OSTOMIES. PT TOLERATING REGULAR DIET. PT MODERATE ASSIST TO GET OOB TO WC. PT IV ABT GIVEN ORDERED. THIS NURSE CALLED ID TO FIND OUT HOW MUCH LONGER PT NEEDS TO BE ON IV ABT. AWITING CALL BACK AT THIS TIME. THIS NURSE ALSO HAS INSULATING MACHINE OPERATOR PRETTY TRYING TO GET A HOLD OF ID WELL. WILL CONTINUE TO MONITOR.
[2021-01-19 20:00] VITALS: BP 130/71
--- NOTE | 2021-01-20 04:39 | NUR ---
ASSUMED CARE OF PT AT 1930 ON 01/19/21. PT IS A&OX4. IS ON ROOM AIR. DENIES PAIN. IS UP WITH 1 ASSIST, GB, STAND PIVOT TO CHAIR. FALL PRECAUTIONS & HOURLY ROUNDING CONTINUED THIS SHIFT. LABS & VTIALS REVIEWED. OSTEMIES INTACT. PRAFO BOOTS IN PLACE. TURNED Q2H. MARGARET SINGLE LUMEN PICC INTACT. FLUSHING APPROPRIATELY. CALL LIGHT WITHIN REACH. WILL CONTINUE TO MONITOR.
[2021-01-20 08:00] VITALS: BP 120/57
[2021-01-20 10:31] VITALS: BP 120/57
--- NOTE | 2021-01-20 15:50 | NUR ---
Dr pelaez and dc orders completed, cm faxed to [facility], negativie covid results and [id number] sent as well. wheel chair transportation set up for [phone]. Bedside nurse to call report to [phone], ask for postacute unite. send chart copy with jessica.
--- NOTE | 2021-01-20 18:34 | NUR ---
REPORT HAS BEEN CALLED TO INES AT [facility]. PATIENT IS PACKED AND READY TO DC. WILL BE PICKED UP BY THEIR TRANSPORT SOON.
--- NOTE | 2021-01-20 18:55 | NUR ---
REPORT HAS BEEN GIVEN TO BETTYE CHACON, AND PT WAS ASSISTED TO WC WITH CGA, TAKEN BY WC TRANSPORTER, SO PT DID NOT DO FINAL WC MOBILITY OR CAR TRANSFER.
== END 2021-01-20 18:55 | DRG 56 ==
PROVIDERS: Family Medicine; Internal Medicine; Specialist; ADMIT Physical Medicine & Rehabilitation; ATTEND Physical Medicine & Rehabilitation
DX: G20 Parkinson's disease (principal); A41.9 Sepsis, unspecified organism; N39.0 Urinary tract infection, site not specified; M86.9 Osteomyelitis, unspecified; D64.9 Anemia, unspecified; Q05.9 Spina bifida, unspecified; R53.1 Weakness; L89.329 Pressure ulcer of left buttock, unspecified stage
CPT/HCPCS: 10112

== ENCOUNTER 2021-04-25 18:39 | Inpatient (IN) | payer OTHER ==
[~2021-04-25] VITALS: Ht 160 cm; Wt 72.8 kg
--- NOTE | ~2021-04-25 | EMS ---
[facility] [address] [place] [address] EMS Patient Care Report Name: AUDRA HARRIS Room #: 454-P ADM IN M.R.#: [id number] Admission: 04/25/21 Attend Phys: Steven Rodriguez MD, FAAF Discharge: Date of : 64 Report #: [id number] THIS REPORT FOR: //name// Report Transmitted: 04/28/2021 13:33 EMS Care Summary [place], [place]/[facility] Incident [id number] @ 04/25/2021 18:17 Incident Location [address] [place] [address] Patient AUDRA HARRIS Female, 60 Years 1960 Patient Address [address] [place] [address] Patient History Mild cognitive impairment, Chief Complaint wound on thigh Disposition Transported No Lights/[place] Dispatch Reason Sick Person Transported To [facility] Narrative pt has chronic ulceration on back of L thigh. pt had a wound vac on the site and it made the wound worse. home health was out today and checked on the wound. they feel it is getting worse. the wound Dr ayers that pt go to [facility] for eval. pt found seated on chair, a&o. she is able to stand and pivot to cot. VS, transport w/o change. Initial Vitals @18:28P: 96,R: 18,BP: 160/74,Pain: 10/10,GCS: 15,SpO2: 96,Revised Trauma: 12, [facility] [address] [place] [address] EMS Patient Care Report Name: AUDRA HARRIS Room #: 454-P ADM IN M.R.#: [id number] Admission: 04/25/21 Attend Phys: Steven Rodriguez MD, FAAF Discharge: Date of : 64 Report #: [id number] Assessments @18:23MENTAL:Other,SKIN:No Abnormalities,HEENT:Head/Face: No Abnormalities,LUNG SOUNDS:ABDOMEN:PELVIS//GI:EXTREMITIES:Left Leg: Other,PULSE:NEURO:No Abnormalities, Impression Cellulitis Procedures @18:23 ALS Assessment @18:24 Stretcher Response: Unchanged Timeline 18:11,Call Received 18:11,Dispatch Notified 18:17,Dispatched 18:18,En Route 18:22,On Scene 18:23,At Patient 18:23,ALS Assessment, 18:24,Stretcher,Response: Unchanged 18:27,Depart Scene 18:28,BP: 160/74 M,PULSE: 96,RR: 18 R,SPO2: 96 Ox,ETCO2: ,BG: ,PAIN: 10,GCS: 15, 18:35,At Destination 18:46,Call Closed Disclaimer v1.1 Copyright 2020 [employer] This EMS Care Summary contains data elements from the applicable legal record (which may be displayed differently). It is designed to provide pertinent information for the following purposes: continuity of care, clinical quality, and state data reporting. The complete legal record is available to ED staff and administrators of the receiving hospital in [facility]'s Patient Tracker. All data is provided "as is."
--- NOTE | ~2021-04-25 | EMS ---
[facility] [address] [place] [address] EMS Patient Care Report Name: AUDRA HARRIS Room #: 454-P ADM IN M.R.#: [id number] Admission: 04/25/21 Attend Phys: Steven Rodriguez MD, FAAF Discharge: Date of : 64 Report #: [id number] THIS REPORT FOR: //name// Report Transmitted: 04/28/2021 10:23 EMS Care Summary [place], [place]/[facility] Incident [id number] @ 04/25/2021 18:17 Incident Location [address] [place] [address] Patient AUDRA HARRIS Female, 60 Years 1960 Patient Address [address] [place] [address] Patient History Mild cognitive impairment, Chief Complaint wound on thigh Disposition Transported No Lights/[place] Dispatch Reason Sick Person Transported To [facility] Narrative pt has chronic ulceration on back of L thigh. pt had a wound vac on the site and it made the wound worse. home health was out today and checked on the wound. they feel it is getting worse. the wound Dr ayers that pt go to [facility] for eval. pt found seated on chair, a&o. she is able to stand and pivot to cot. VS, transport w/o change. Initial Vitals @18:28P: 96,R: 18,BP: 160/74,Pain: 10/10,GCS: 15,SpO2: 96,Revised Trauma: 12, [facility] [address] [place] [address] EMS Patient Care Report Name: AUDRA HARRIS Room #: 454-P ADM IN M.R.#: [id number] Admission: 04/25/21 Attend Phys: Steven Rodriguez MD, FAAF Discharge: Date of : 64 Report #: [id number] Assessments @18:23MENTAL:Other,SKIN:No Abnormalities,HEENT:Head/Face: No Abnormalities,LUNG SOUNDS:ABDOMEN:PELVIS//GI:EXTREMITIES:Left Leg: Other,PULSE:NEURO:No Abnormalities, Impression Cellulitis Procedures @18:23 ALS Assessment @18:24 Stretcher Response: Unchanged Timeline 18:11,Call Received 18:11,Dispatch Notified 18:17,Dispatched 18:18,En Route 18:22,On Scene 18:23,At Patient 18:23,ALS Assessment, 18:24,Stretcher,Response: Unchanged 18:27,Depart Scene 18:28,BP: 160/74 M,PULSE: 96,RR: 18 R,SPO2: 96 Ox,ETCO2: ,BG: ,PAIN: 10,GCS: 15, 18:35,At Destination 18:46,Call Closed Disclaimer v1.1 Copyright 2020 [employer] This EMS Care Summary contains data elements from the applicable legal record (which may be displayed differently). It is designed to provide pertinent information for the following purposes: continuity of care, clinical quality, and state data reporting. The complete legal record is available to ED staff and administrators of the receiving hospital in [facility]'s Patient Tracker. All data is provided "as is."
[2021-04-25 18:39] VITALS: BP 113/49
[2021-04-25 19:17] LABS: ABSOLUTE NEUTROPHILS 6.7 thou/uL (1.4-8.2); BASOPHILS 1.1 % (0.0-2.0); EOSINOPHILS 0.9 % (0.0-3.0); HEMATOCRIT 34.9 % (37.0-47.0); HEMOGLOBIN 11.5 gm/dL (12.0-15.0); LYMPHOCYTES 15.2 % (24.0-44.0); MCH 26.7 pg (26.0-34.0); MCHC 32.9 g/dL (28.0-37.0); MCV 81.1 fL (80.0-100.0); PLATELET COUNT 221 thou/uL (150-400); POLYS 75.8 % (36.0-66.0); RBC 4.31 mil/uL (4.20-5.00); RDW 17.1 % (10.5-14.5); WBC 8.8 thou/uL (4.0-11.0)
[2021-04-25 19:20] LABS: URINE BILIRUBIN NEGATIVE (Negative); URINE BLOOD NEGATIVE (Negative); URINE CLARITY CLOUDY; URINE COLOR YELLOW; URINE GLUCOSE-RANDOM* NEGATIVE (Negative); URINE KETONES NEGATIVE (Negative); URINE PROTEIN (DIPSTICK) 1+ (Negative); URINE UROBILINOGEN 0.2 E.U./dl (0.2-1.0)
[2021-04-25 19:20] LABS: CREATININE 1.1 mg/dL (0.6-1.0); POTASSIUM 4.2 mmol/L (3.5-5.1)
[2021-04-25 19:25] LABS: URINE LEUKOCYTES-REFLEX 2+ (Negative); URINE NITRITE-REFLEX POSITIVE (Negative)
[2021-04-25 19:26] LABS: ALBUMIN 3.1 g/dL (3.4-5.0); TOTAL BILIRUBIN 0.4 mg/dL (0.2-1.0)
[2021-04-25 19:46] LABS: CALCIUM OXALATE >10 Many /LPF (None Seen)
[2021-04-25 19:47] LABS: CASTS None Seen /LPF (None Seen); TRIPLE PHOSPHATE CRYSTALS 4-10 Moderate /LPF (None Seen)
[2021-04-25 19:48] LABS: BACTERIA-REFLEX >30 Many /HPF (None Seen); URINE RBC 1-2 Rare /HPF (NONE SEEN)
[2021-04-25 19:53] LABS: SQUAMOUS 0-3 Few /LPF (0-3)
[2021-04-26 08:00] VITALS: BP 121/51
[2021-04-26 12:00] VITALS: BP 114/58
[2021-04-26 16:00] VITALS: BP 127/68
[2021-04-26 18:13] VITALS: BP 127/68
[2021-04-26 19:25] VITALS: BP 131/63
[2021-04-26 20:00] VITALS: BP 118/53
--- NOTE | 2021-04-26 20:30 | NUR ---
Pt. admitted to the unit from the emergency room accompanied by staff. Pt. is alert and oriented. Admission assessment and history is completed. No c/o pain.
--- NOTE | 2021-04-27 04:59 | NUR ---
Pt. rested quietly during the night when checked on during frequent rounds. She offers no complaints.
[2021-04-27 07:29] VITALS: BP 113/50
--- NOTE | 2021-04-27 14:23 | NUR ---
CM MET WITH PT AT BEDSIDE THIS DAY. PT APPEARED TO BE A/OX4. PATIENT WITH HX OF SPINA BIFIDA, UROSTOMY AND COLOSTOMY. PATIENT RESIDES AT [facility]. SHE REPORTS SHE USES A 4WW WITH A SEAT IN HOME. THEY ASSIST WITH MEDICATIONS, MEALS AND TRANSPORT. [facility] WATER ENGINEER IS SARTHAK. PT'S BROTHER HAS BEEN HER DPOA. CM TO SPEAK WITH BOTH. PT INDICATED SHE HAD BEEN ON SERVICE WITH HH BLISTER [facility]UST ERADICATOR BUT SHE CAN'T RECALL PROVIDER. PT HAD GONE SKILLED AT [facility] LAST ADMISSION FOR IV ABX. PLAN HOME ONCE STABLE. [facility] FOLLOWING.
--- NOTE | 2021-04-27 15:30 | NUR ---
CM MET WITH PT AT BEDSIDE THIS DAY. PT APPEARED TO BE A/OX4. PATIENT WITH HX OF SPINA BIFIDA, UROSTOMY AND COLOSTOMY. PATIENT RESIDES AT [facility]. SHE REPORTS SHE USES A 4WW WITH A SEAT IN HOME. THEY ASSIST WITH MEDICATIONS, MEALS AND TRANSPORT. [facility] D[facility] ATTENDANT IS SARTHAK. PT'S BROTHER HAS BEEN HER DPOA. CM TO SPEAK WITH BOTH. PT INDICATED SHE HAD BEEN ON SERVICE WITH HH SET UP MECHANIC CROWN [employer]SEMBL[employer] MACHINE BUT SHE CAN'T RECALL PROVIDER. PT HAD GONE SKILLED AT [facility] LAST ADMISSION FOR IV ABX. CM SPOKE WITH SARTHAK AND SHE INDICATED THAT THE [facility] AND [facility] GOVERNING BODY THAT MANAGE HER LISCENSURE HAD INDICATED THAT THEO ELENA HAVE TO FIND MACHINE SETTER/LTC PLACEMENT THAT PT ISN'T APPROPRIATE FOR RCF SETTING FOR UROSTOMY, COLOSTOMY, AND WC SERVICES TO NOT BE PROVIDED BY A NURSE. SARTHAK INICATED THAT SHE HAD SPOKEN WITH PT'S DPOA BROTHER DEMIAN AND HE IS AWARE AND AGREEABLE IN HER ATTEMPTING TO FIND ALTERNATE PLACEMENT FOR PT. SARTHAK HAD REACHED OUT TO [facility], [facility], AND [facility]. [facility] AND [facility] DECINED ADMISSION. CM TO SPEAK WITH BROTHER/DPOA DEMIAN AND [facility]. [facility] FOLLOWING.
[2021-04-27 16:53] VITALS: BP 105/67
--- NOTE | 2021-04-27 18:37 | NUR ---
ASSUMED CARE AT SHIFT CHANGE. PT A/O X 4 . DENIES PAIN. TURNED PT WILLING. WOUND CARES COMPLETE BY CRIS WOUND NURSE. PT HAD GOOD APPETITE, NO BM TODAY. CELLULITIS IMPROVING. PT PROGRESSING TOWARDS POC GOALS.
[2021-04-27 19:55] VITALS: BP 123/70
[2021-04-28 07:00] VITALS: BP 121/60
--- NOTE | 2021-04-28 07:59 | NUR ---
Assumed pt care at 1900. A/OX4, VSS.Denies pain on assessment. Urostomy/colostomy in place and patent. Wound care to LIT done w/o any problems,open area on top of head open to air,picking on it encouraged to leave it alone. [facility]will continue to monitor pt.
--- NOTE | 2021-04-28 17:02 | NUR ---
THIS DAY VIVI ENGLE PHILATELIC CONSULTANT WITH [facility] ARRIVED AT UNIT. SHE ATTEMPTED TO VISIT WITH PT BUT SHE WAS SLEEPING. SHE INDICATED THERE IS AN OPEN CASE ON PT AND THAT [facility] ARE INDICATING THAT PT SHOULDN'T RETURN TO [facility] UPON [place]. THEY ARE ALSO ASKING THAT ALTERNATE SKILLED TRANSITION TO LTC PLACEMENT BE FOUND FOR PT. CALLED [facility] THIS DAY AND THEY HAVE NO BEDS. CM TO NOTIFY SARTHAK AND DEMIAN MADRIGAL. HAD REACHED OUT TO DR. AGGARWAL THIS DAY WELL AND GOT NO RESPONSE. CM TO SEND ADDITIONAL REFERRALS FOR POSSIBLE PLACEMENT. PT CONTINUES ON IV ABX AND WC. BROTHER/DPOA DEMIAN .
[2021-04-28 20:06] VITALS: BP 146/71
--- NOTE | 2021-04-28 20:22 | NUR ---
Assumed pt care this am, on isolation precautions. Colostomy appliance and bag change, soft formed bm noted. Urostomy in place, draining loight yellow urine. Wound care done by would care team. POC followed with no signs or verbalizations of distres noted. endorsed to the night nurse.
--- NOTE | 2021-04-29 05:59 | NUR ---
Assessment completed. Pt is alert and oriented.Cloudy urine. Denies pain. Afebrile. Woundcare done and tolerated well.
[2021-04-29 08:06] VITALS: BP 135/58
--- NOTE | 2021-04-29 16:50 | HC ---
[facility] [place] [address] CONSULTATION Name: AUDRA HARRIS Room #: 454-P [facility] IN ..#: [id number] Admission: 04/25/21 Attend Phys: Steven Rodriguez MD, FAA Discharge: Date of : 64 Report #: [id number] THIS REPORT FOR: cc: Steven Rodriguez MD FAA FACE Steven Rodriguez MD FAA FACE Romelia BriceM ~ DATE OF SERVICE: 04/29/2021 HISTORY OF PRESENT ILLNESS: This is a 60-year-old female who was admitted for a chronic ulcer to her left ischium and left leg cellulitis. I was consulted for podiatric foot care. The patient denies any open wounds to her feet or ankles but has issues with long thick painful fungal toenails that she is having difficulty caring for. LOWER EXTREMITY PHYSICAL EXAMINATION: Palpable pedal pulses bilateral. CFT brisk to all toes. Sensation is diminished to bilateral feet or ankles. The patient in an equinovarus position, more so on the left than the right. All toenails are elongated, thickened fungal with subungual debris and pain in the periungual tissues. There are no breaks in the skin or acute signs of infection to the feet. There is limited ankle dorsiflexion bilateral and loss of strength with ankle dorsiflexion bilateral. ASSESSMENT AND PLAN: A 77-year-old female who was admitted for left ischium ulcer with left lower extremity cellulitis, being seen by podiatry for foot care. Following alcohol prep sharp debridement using a sterile forceps was performed, all toenails 1 through 10 bilateral. There are no breaks in the skin or signs of infection to bilateral feet or ankles. Recommend offloading the heels with 2 pillows or Prevalon boots. <ELECTRONICALLY SIGNED> By: Romelia Brice DPM 04/29/21 1650 [id number] Romelia Brice DPM /nt
--- NOTE | 2021-04-29 18:25 | NUR ---
Assumed pt care at 7am.Pt in and out of bed with assistance x1.Assessment completed. Vss. Meds given and well tolerated . Pt has good appetite. Wonud care done to coccyx as ordered. Dr Crouch here,order noted. Dr Leigh here to trim pt's toe nails.No verbal c/o at present. Will continue to monitor.
--- NOTE | 2021-04-30 04:48 | NUR ---
PT IS A/O X4 AND IS UP WITH ASSITANCE. ROOM AIR. MEDICATIONS GIVEN PER MAR. DRSGS C/D/I. FALL PRECAUTIONS IN PLACE, CALL LIGHT IS WITHIN REACH. WILL CONTINUE TO MONITOR. PT IS PROGRESSING TOWARDS PLAN OF CARE DC GOALS.
[2021-04-30 08:10] VITALS: BP 129/73
[2021-04-30 17:34] VITALS: BP 137/59
--- NOTE | 2021-04-30 18:24 | NUR ---
ASSUMED PT CARE AT 7AM. PT IN BED MOST OFTHE TIME TODAY.ABLE TO REPOSITION SELF NEEDED.MEDS GIVEN ORDERED AND WELL TOLERATED.COLSTOMY BAG BUSTED AND WAS REPLACED THIS SHIFT.DR BROWN HERE,ORDER NOTED.PT HAS GOOD APPETITE. DRSG CHANGE DONE TO COCCYX WOUND ORDERED. NO VERBAL C/O. WILL CONTINUE TO MONITOR.
[2021-04-30 19:33] VITALS: BP 127/73
--- NOTE | 2021-05-01 04:19 | NUR ---
Assumed pt care at 1900. A/OX4,VSS.Denies pain on assessment, no N/V. Wound care to LIT done w/o any problems. Urostomy/colostomy changed d/t leaking. Fall precautions in place,calls approp for help. Per caregiver Scarlet pt upset d/t news of moving from [facility] to [facility] in the near future, didnt verbalize any concerns to marketing writer herslef. Will continue to monitor pt.
[2021-05-01 04:22] LABS: ABSOLUTE NEUTROPHILS 2.5 thou/uL (1.4-8.2); EOSINOPHILS 5.8 % (0.0-3.0); HEMATOCRIT 32.5 % (37.0-47.0); HEMOGLOBIN 11.2 gm/dL (12.0-15.0); LYMPHOCYTES 33.2 % (24.0-44.0); MCH 28.3 pg (26.0-34.0); MCHC 34.4 g/dL (28.0-37.0); MCV 82.1 fL (80.0-100.0); MONOCYTES 8.7 % (1.0-8.0); PLATELET COUNT 190 thou/uL (150-400); POLYS 51.3 % (36.0-66.0); RBC 3.96 mil/uL (4.20-5.00); RDW 17.1 % (10.5-14.5); WBC 4.9 thou/uL (4.0-11.0)
[2021-05-01 04:46] LABS: ALBUMIN 2.6 g/dL (3.4-5.0); ANION GAP 9 mmol/L (7-16); BUN 23 mg/dL (7-18); CALCIUM 8.7 mg/dL (8.5-10.1); CHLORIDE 107 mmol/L (98-107); CO2 25 mmol/L (21-32); CREATININE 1.1 mg/dL (0.6-1.0); GLUCOSE 90 mg/dL (74-106); POTASSIUM 3.5 mmol/L (3.5-5.1); SGOT 67 U/L (15-37); SGPT 16 U/L (30-65); SODIUM 141 mmol/L (136-145); TOTAL BILIRUBIN 0.3 mg/dL (0.2-1.0); TOTAL PROTEIN 7.1 g/dL (6.4-8.2)
[2021-05-01 07:55] VITALS: BP 117/71
--- NOTE | 2021-05-01 16:08 | NUR ---
CM SPOKE WITH PT'S BROTHER VIMAL ARCINIEGA THIS AFTERNOON AND PROVIDED [facility] CONTACT INFO FOR HIM TO REACH OUT TO HER. CM SPOKE WITH SARTHAK THIS AM AND INDICATED THAT WE HAD SPOKEN ABOUT ON [facility] DIDN'T HAVE OPENINGS. LYSSA ASKED TO SEND REFERRALS TO [facility] AGAIN AND TO [facility] WHERE PT HAD BEEN SKILLED IN JANUARY. SHE WAS AGREEABLE. CM SENT REFERRALS [facility] CAN'T TAKE THEY ARE CLOSED TO OUTSIDE ADMISSION FOR A WEEK AND WON'T HAVE LTC BED FOR AT LEAST A YEAR. CM LEFT VM WITH [facility]. [facility] INDICATED THAT THEY WOULD LIKELY BE ABLE TO ACCEPT SKILLED WITH TRANSITION TO LTC. CM CALLED AND NOTIFIED DEMIAN PT'S BROTHER. CM HEARD FROM DR. AGGARWAL THIS DAY. HE INDICATED THAT HE ANTICIPATE PT NEEDING PROLONGED IV ABX BUT HOPEFULLY NOT VANCO. CM TO NOTIFY [facility] AND CONTINUE TO REACH OUT TO [facility]. CM FOLLOWING REGARDING DC PLANNING.
[2021-05-01 16:40] VITALS: BP 122/74
[2021-05-01 19:45] VITALS: BP 118/64
--- NOTE | 2021-05-02 05:08 | NUR ---
Assumed pt care at 1900. A/OX4,VSS. Denies pain, N/V on assessment. Wound care to LIT done w/o any problems,sore on top of head open to air,pt encouraged to stop picking on it. Urostomy bag changed this shift d/t leaking,colostomy intact with loose brown stool. Remains on isolation for MRSA on wound.Fall precautions in place. Will continue to monitor pt.
[2021-05-02 07:27] VITALS: BP 114/59
--- NOTE | 2021-05-02 10:42 | NUR ---
VAT CALLED FOR MIDLINE. PT'S LABS,MEDS,HX VIEWED. DISCUSSED BENEFITS AND RISK WITH PT, GAVE VERBAL CONSENT FOR MIDLINE. PT HAS HAD NUMEROUS ML IN PAST. MARGARET CASTRO IS WIDELY PATENT WITH USG. 4FR POWER ML TRIMMED TO 11CM INSERTED X1 STICK TO 0CM WITH BRISK BR. PT TOLERATED WELL. ML RELEASED FIR IMMEDIATE USE PER PROTOCOL.
--- NOTE | 2021-05-02 13:15 | NUR ---
OSTOMY F/U; HERE TODAY TO ASSESS THE OSTOMY AND IT WAS FOUND INTACT WITH HEALTHY PERISTOMAL TISSUE. DISCUSSED WITH THE RN THE MY COLLABERATIVE APPROACH TO OSTOMY CARE.
--- NOTE | 2021-05-02 14:51 | NUR ---
[facility] VISITED PT THIS AFTERNOON. THEY ARE ACCEPTING OF PT FOR SHORT TERM SKILLED REHAB STAY FOR IV ABX, WC, AND THERAPY UPON DC AND THEN TRANSITION TO [place]TC [place]ER [place] MEDICA[place]. CM HAD NOTIFIED PT'S BROTHER/DPOA YESTERDAY. CM TO UPDATE SARTHAK. DR. AGGARWAL HAS BEEN NOTIFIED AND HAS INDICATED THAT HE ANTICIPATES PT NEEDED IV ABX UPON DC AND HOPES TO BE ABLE TO USE ANOTHER ABX BESIDES VANCO. CM FOLLOWING REGARDING DC PLANNING.
[2021-05-02 17:33] VITALS: BP 120/71
--- NOTE | 2021-05-02 18:27 | NUR ---
Assumed pt care at 7am.Pt up in chair after bath given by OT.Assessment completed.vss.Dr Toscano here early this shift and assisted RN in dressing change to left bottom. Pt has good appetite and u/o.Dr Rodriguez here later this evening,updates given and order noted.Pt now in bed listening to music.No verbal c/o noted. Will continue to monitor.
[2021-05-02 19:57] VITALS: BP 124/72
--- NOTE | 2021-05-03 04:00 | NUR ---
Woundcare dresssing changed, Wound culture collected. PT tolerated well. Bottom offloaded plus anna heels. Room air. Denies pain.
[2021-05-03 07:25] VITALS: BP 118/70
--- NOTE | 2021-05-03 08:55 | HC ---
[facility] [place] [address] CONSULTATION Name: AUDRA HARRIS Room #: 454-P [facility] IN ..#: [id number] Admission: 04/25/21 Attend Phys: Steven Rodriguez MD, FAA Discharge: Date of : 64 Report #: [id number] THIS REPORT FOR: cc: Steven Rodriguez MD FAA FACE Steven Rodriguez MD FAA FACEP Maurice Burnette MD ~ DATE OF SERVICE: 04/27/2021 CHIEF COMPLAINT: Stage IV left ischial pressure ulceration. HISTORY OF PRESENT ILLNESS: This is a 60-year-old female patient with whom I am familiar from multiple hospitalizations, who has a history of a chronic ulcer to her left ischium. Apparently, she is being admitted for a left leg infection. I have been asked to see with regard to wound care. She denies any pain, but has some mild weakness at this time. 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 CURRENT MEDICATIONS: Include acetaminophen, amlodipine, aripiprazole, vitamin C, carbidopa/levodopa, dextromethorphan, diphenhydramine, tioconazole, entacapone, famotidine, Lasix, imipramine, meclizine, mupirocin, ondansetron, zinc sulfate. ALLERGIES: LATEX, ADHESIVE TAPE. FAMILY HISTORY: Noncontributory. REVIEW OF SYSTEMS: CONSTITUTIONAL: The patient denies fever, chills, or weight loss. NEUROLOGICAL: The patient denies focal weakness, numbness, or tingling. EYES: The patient denies visual changes, redness, or drainage. ENT: The patient denies earache, nasal drainage, or sore throat. CARDIOVASCULAR: The patient denies chest pain, palpitation, or diaphoresis. PULMONARY: The patient denies cough or shortness of breath. GASTROINTESTINAL: The patient denies nausea, vomiting, diarrhea or abdominal pain. ORTHOPEDIC: The patient is aware of the ulceration on the left ischial region. Others systems in a 14-point review of systems are negative. PHYSICAL EXAMINATION: VITAL SIGNS: The patient's vital signs at this time include temperature 36.5, pulse 77, respiration 18, blood pressure 113/50. [address] [address] CONSULTATION Name: AUDRA HARRIS Room #: 454-P [facility] IN ..#: [id number] Admission: 04/25/21 Attend Phys: Steven Rodriguez MD, FAAF Discharge: Date of : 64 Report #: [id number] GENERAL: This is a chronically ill-appearing female patient who appears to be in minimal distress. HEENT: Head normocephalic. Nose and throat clear. NECK: Supple. LUNGS: Diminished. HEART: Regular rhythm. ABDOMEN: Soft and nontender. EXTREMITIES: Examination of the left ischial region demonstrates stage IV ulceration is present. It is relatively clean and granulating. Bone is palpable. There is a little bit of undermining. There is no fibrin present. There is some surrounding erythema. LABORATORY DATA: Include white blood cell count 8.0 with a hemoglobin 11.5, sodium 141, potassium 4.2, chloride 105, CO2 of 24, BUN 29, creatinine 1.1, glucose 114, albumin is 3.1. CLINICAL IMPRESSION: 1. Stage IV left ischial pressure ulceration. 2. Abrasion to the scalp. 3. Spina bifida with lower extremity weakness. 4. Mild protein-calorie malnutrition with albumin 3.1. RECOMMENDATIONS: At this point in time, we will recommend quarter strength Dakin's moist gauze dressing b.i.d. and p.r.n., low air loss mattress with q. 2 hour turning and positioning. We will leave the scalp open to air. She will need aggressive nutritional support. The patient is agreeable to current plan. I appreciate being asked to see her in consultation. <ELECTRONICALLY SIGNED> By: Maurice Burnette MD 05/03/21 0855 1026 Maurice Burnette MD /nt
--- NOTE | 2021-05-03 16:47 | H ---
[facility] [place] [address] HISTORY AND PHYSICAL Name: AUDRA HARRIS Room #: 454-P ADM IN M.R.#: [id number] Admission: 04/25/21 Attend Phys: Steven Rodriguez MD, FAAF Discharge: Date of : 64 Report #: [id number] THIS REPORT FOR: cc: Steven Rodriguez MD FAAFP FACEP Steven Rodriguez MD FAAFP FACEP Steven Rodriguez MD FAAFP FACEP ~ cc: Maurice Burnette MD, Ronak Lopez MD DATE OF SERVICE: 04/26/2021 CHIEF COMPLAINT: Chronic left posterior thigh wound; associated cellulitis. HISTORY OF PRESENT ILLNESS: The patient is a 60-year-old white female, patient of mine for years. Complex medical problems with chronic left posterior upper thigh wound, associated osteomyelitis, noted to have cellulitis by home health nurses on 04/25/2021 and evaluated subsequent to their visit at the Emergency Department at [facility]. She was started on IV vancomycin in the Emergency Department and admitted to the hospital. She says she is not in pain. She is eating well. She has functioning urostomy and colostomy. PAST MEDICAL HISTORY: Seizure disorder, mild mental retardation, spina bifida, hydrocephalus, hepatitis C, self-mutilation, anemia, mood disorder, eczema, incontinence of bowel, hyperlipidemia, Parkinson's disease, ileostomy, diverting colostomy, history of GI bleed, seasonal allergies, chronic left ischial wound. MEDICATIONS: Amlodipine 5 mg 1 p.o. daily, Abilify 15 mg 1 p.o. at bedtime, famotidine 20 mg 1 p.o. daily, imipramine 25 mg 3 p.o. at bedtime, ferrous 150 mg capsules 1 p.o. at bedtime, multivitamin with iron 1 p.o. daily, vitamin D2 1.25 mg 50,000 international units weekly on Saturdays, zinc sulfate 220 mg 1 p.o. daily, vitamin C 500 mg 1 p.o. b.i.d., Sinemet-CR 50/200 1 p.o. t.i.d., entacapone 200 mg 1 p.o. t.i.d., acetaminophen 500 mg two p.o. q. 4 hours p.r.n. pain or elevated temperature, not to exceed 3 grams APAP for 24 hours, Delsym 30 mg per 5 mL suspension, 10 mL p.o. daily p.r.n. cough, furosemide 20 mg 1 p.o. daily p.r.n. edema, ibuprofen 800 mg 1 p.o. t.i.d. p.r.n. pain, meclizine 25 mg one p.o. t.i.d. p.r.n. dizziness, Maalox Plus Extra Strength suspension 2 tablespoons equals 30 mL p.o. q. 6 hours p.r.n. indigestion, Zofran ODT 4 mg 1 p.o. q.i.d. p.r.n. nausea. Dakin's 0.5% solution to stage IV left ischial pressure ulcer, docosanol 10% cream topically to affected skin 5 times daily p.r.n. cold sores. Mupirocin 2% ointment to affected area b.i.d. p.r.n., nystatin powder to affected skin daily p.r.n. ALLERGIES: No known drug allergies. SOCIAL HISTORY: She is a half-way resident in [facility]. Nonsmoker, nondrinker. [facility] [address] [place] [address] HISTORY AND PHYSICAL Name: AUDRA HARRIS Room #: 454-P [facility] IN [facility]#: [id number] Admission: 04/25/21 Attend Phys: Steven Rodriguez MD, FAAF Discharge: Date of : 64 Report #: [id number] FAMILY HISTORY: Noncontributory. REVIEW OF SYSTEMS: GENERAL: No fever, chills, nausea, vomiting, diarrhea. EYES: No visual change. ENT: No problems with hearing, swallow, taste or smell. CARDIOVASCULAR: No chest pain or palpitations. RESPIRATORY: No difficulty breathing. GASTROINTESTINAL: She has a diverting colostomy. No abdominal pain. GENITOURINARY: She has an ileostomy. MUSCULOSKELETAL: She is poorly mobile, has arthritic changes and has osteomyelitis of her left hip/posterior thigh area with chronic wound there and now with associated cellulitis. NEUROLOGIC: Spina bifida, Parkinson's disease, hydrocephalus. PSYCHIATRIC: No dark thoughts or feelings of depression. DERMATOLOGIC: Chronic left posterior thigh/buttock region wound with associated cellulitis. Remainder of system review is negative. PHYSICAL EXAMINATION: VITAL SIGNS: Temperature 36.8, pulse 79, respirations 18, blood pressure 121/51. She is 98% oxygenated on room air. GENERAL: She is in no acute distress, pleasant and conversational. HEENT: Pupils equal, round, reactive to light and accommodation. Extraocular muscles intact. Pharynx unremarkable. NECK: Supple. HEART: S1, S2. CHEST: Clear. ABDOMEN: Soft, nontender. Functioning urostomy and colostomy. EXTREMITIES: She has a 3 x 3 area of ulcer, left posterior thigh at the gluteal fold with associated small rim of cellulitis. Legs, 1+ nonpitting edema. LABORATORY DATA: CBC: White count is 8.8, hemoglobin 11.5, hematocrit 34.9, platelets 221,000. Serum chemistry: Sodium 141, potassium 4.2, chloride 105, CO2 of 24, BUN 29, creatinine 1.1. Urinalysis shows a yellow cloudy urine, pH 8.5, specific gravity 1.010, 1+ protein, negative for ketones, negative for blood, nitrite positive. Urine bilirubin negative, ____ 0.2, leukocyte esterase 2+, urine red cells 1-2 rare, white cells 16-25 under the microscope, few squamous epithelial cells, greater than 10 calcium oxalate crystals, triple phosphate crystals 4-10, moderate urine bacteria greater than 30 many and this is from a urostomy. ASSESSMENT: Cellulitis, left posterior thigh; chronic ulcer, left posterior thigh/buttock, osteomyelitis, anemia, weakness with multiple comorbidities, [address] [address] HISTORY AND PHYSICAL Name: AUDRA HARRIS Room #: 454-P [facility] IN [facility]#: [id number] Admission: 04/25/21 Attend Phys: Steven Rodriguez MD, FAAF Discharge: Date of : 64 Report #: [id number] stage IV left ischial pressure ulcer, chronic colostomy and ileal conduit, spina bifida with leg weakness, Parkinson's disease, developmental delay, history of hydrocephalus and hepatitis C, type 2 diabetes, necrotic teeth, moderate protein calorie malnutrition. PLAN: Admit to hospital, IV antibiotics, started with vancomycin. Follow levels. Continue home medications. Wound care consult placed. <ELECTRONICALLY SIGNED> By: Steven Rodriguez MD, PATRICK, KELIN 05/03/21 1647 [id number] [id number] Steven Rodriguez MD, PATRICK, FACEP /nt
[2021-05-03 21:11] VITALS: BP 120/50
--- NOTE | 2021-05-04 06:23 | NUR ---
patient was calm and cooperative with meds and care. left cocxxy wound had minimum drainage, no odor or s/s of infection. patient educated to turn q 2 hours. patient denied pain or discomfort. patient in bed asleep at this time breathing regular and unlaboured.
[2021-05-04 07:39] VITALS: BP 116/57
[2021-05-04 13:10] VITALS: BP 119/64
--- NOTE | 2021-05-04 14:46 | NUR ---
CM SPOKE WITH DR. AGGARWAL THIS AFTERNOON. HE INDICATED ASKED IF CULTURES HAD COME BACK. CM CONVEYED THIS INFO TO HIM. HE ASKED THAT DR. GORDON BE CONSULTED TO DETERMINE COURSE OF IV ABX TREATMENT. NURSE ENTERED CONSULT FOR DR. GORDON. TO UPDATED IGNITE. CM FOLLOWING REGARDING DC PLANNING.
[2021-05-04 17:21] VITALS: BP 116/55
[2021-05-04 20:03] VITALS: BP 131/69
--- NOTE | 2021-05-05 07:23 | NUR ---
patient aox4 makes needs known. wound on left ischial is pink in color no drainage. patient ambulates slowly with steady gaits. colostomy bad stoma is pink in color no s/s of infection. ilestomy bag changed, stoma is pink and moist. fall precaution in place. patient in bed asleep at this time breathing regular and unlaboured
[2021-05-05 07:26] VITALS: BP 113/61
[2021-05-05 09:22] VITALS: BP 113/61
--- NOTE | 2021-05-05 13:50 | NUR ---
ID SWITCHED PT TO IV ZOSYN Q 8. PT HAS MIDLINE IN PLACE. CM AWAITING ORDERS. CM TO SET UP WC VAN TRANSPORT. [facility] [place]ER HER [place] MEDICA[place]. CM NOTIFIED PT'S CAREGIVER AT [facility]. CM LEFT VM WITH PT'S BROTHER DEMIAN, AND CALLED AND NOTIFIED [facility] WORKER. WC VAN TRANSPORT IS ARRANGED FOR 1600. CHART COPY MADE. ORDERS TO BE FAXED ONCE COMPLETED. PT IS AWARE. NO OTHER CM INTERVENTION INDICATED. CASE CLOSED.
--- NOTE | 2021-05-05 23:58 | HC ---
[facility] [place] [address] CONSULTATION Name: AUDRA HARRIS Room #: 454-P [facility] IN M.R.#: [id number] Admission: 04/25/21 Attend Phys: Steven Rodriguez MD, FAA Discharge: 05/05/21 Date of : 64 Report #: [id number] THIS REPORT FOR: cc: Steven Rodriguez MD [facility] FACE Steven Rodriguez MD [facility] FACE Dereck Alva MD ~ DATE OF SERVICE: 05/04/2021 INFECTIOUS DISEASE CONSULTATION REASON FOR CONSULTATION: I was asked to evaluate concerning left ischial wound infection. HISTORY OF PRESENT ILLNESS: The patient was a 60-year-old known from her previous hospitalization has had a chronic left ischial ulcer. She was admitted due to increased surrounding erythema and drainage. No reported fever, chills or sweats. She has been undergoing wound care, offloading. Cultures have revealed pseudomonas and Proteus. Antibiotic was switched from vancomycin to Zosyn. The patient was without complaints. She does have a diverting colostomy and ileal conduit. PAST MEDICAL HISTORY: She does have a history of spina bifida, Parkinson's disease and developmental delay, type 2 diabetes, protein-calorie malnutrition and hepatitis C. ALLERGIES: LATEX AND ADHESIVE TAPE. MEDICATIONS: As noted on her MAR, which were reviewed. FAMILY HISTORY: Noncontributory. SOCIAL HISTORY: Lives in a supervised environment. Nonsmoker, no significant alcohol intake. REVIEW OF SYSTEMS: A 14-point negative other than what has been described above. PHYSICAL EXAMINATION: GENERAL: Afebrile and hemodynamically stable. Alert and cooperative. No distress. Left ischial decubitus was packed. Reviewed imaging studies, moderate obesity. No palpable adenopathy. HEENT: Eyes without scleral icterus. Mouth without mucositis. NECK: Supple. LUNGS: Clear. HEART: Regular, without murmur, gallop or rub. ABDOMEN: Soft and nontender with unremarkable ileal conduit and colostomy. [address] [address] CONSULTATION Name: AUDRA HARRIS Room #: 454-P [facility] IN [facility].#: [id number] Admission: 04/25/21 Attend Phys: Steven Rodriguez MD, FAAF Discharge: 05/05/21 Date of : 64 Report #: [id number] EXTREMITIES: With 1+ lower extremity edema. The ischium was palpable. LABORATORY DATA: Reviewed. MICROBIOLOGY: Reviewed. IMPRESSION: Stage IV left ischial pressure ulcer with exposed bone, which has been longstanding. This is in the setting of spina bifida and malnutrition. RECOMMENDATION: We will continue Zosyn, pending sensitivity testing. The patient has shown failure to heal this wound despite fairly aggressive debridement and IV antibiotic therapy. I would recommend plastic surgery evaluation for extensive debridement and myocutaneous flap coverage. <ELECTRONICALLY SIGNED> By: Dereck Alva MD 05/05/21 [id number] Dereck Alva MD /nataliia
== END 2021-05-05 17:19 | DRG 602 ==
LOC: ER 18:39 → EROBS 21:18 → 4W 21:18 → EROBS 21:19 → 4W 04-26 19:36
PROVIDERS: Emergency Medicine; Internal Medicine; ADMIT Family Medicine; ATTEND Family Medicine
DX: L03.116 Cellulitis of left lower limb (principal); L89.324 Pressure ulcer of left buttock, stage 4; L89.314 Pressure ulcer of right buttock, stage 4; E44.0 Moderate protein-calorie malnutrition; M86.8X8 Other osteomyelitis, other site; G20 Parkinson's disease; D64.9 Anemia, unspecified; B35.1 Tinea unguium; S00.01XA Abrasion of scalp, initial encounter; Z20.822 Contact with and (suspected) exposure to COVID-19; E78.5 Hyperlipidemia, unspecified; K21.9 Gastro-esophageal reflux disease without esophagitis; J45.909 Unspecified asthma, uncomplicated; G40.909 Epilepsy, unspecified, not intractable, without status epilepticus; E11.69 Type 2 diabetes mellitus with other specified complication; R62.50 Unspecified lack of expected normal physiological development in childhood; G25.0 Essential tremor; R53.81 Other malaise; K04.1 Necrosis of pulp; Z93.50 Unspecified cystostomy status; Q05.9 Spina bifida, unspecified; Z93.3 Colostomy status; Z86.19 Personal history of other infectious and parasitic diseases; Z93.2 Ileostomy status; Z90.710 Acquired absence of both cervix and uterus; Z86.14 Personal history of Methicillin resistant Staphylococcus aureus infection; Z88.8 Allergy status to other drugs, medicaments and biological substances; Z91.040 Latex allergy status; X58.XXXA Exposure to other specified factors, initial encounter; Y93.89 Activity, other specified; Y92.89 Other specified places as the place of occurrence of the external cause; Y99.8 Other external cause status
CPT/HCPCS: 10040; 27000